=== PATIENT | male | born 1945 | race African-American/Black ===

== ENCOUNTER 2016-11-04 10:23 | Outpatient (CLI) | payer MEDICARE, MEDICAID ==
[~2016-11-04 10:23] MED LIST: ALBUTEROL2.5 MG/3 M INH; AMLODIPINE BESYL5 MG ORAL; ASPIRIN81 MG ORAL; DOCUSATE SODIU100 MG ORAL; ONE A DAY FOR MEN PO; PRAVASTATIN SOD20 M1 ORAL; PROAIR HFA8.5 GM INH; QVAR7.3 G2 IH; SPIRIVA18 MCG INH; VITAMIN D-32000 UNI2 PO
[2016-11-04 10:35] VITALS: BP 110/73
--- NOTE | 2016-11-04 11:09 | GI Initial Consult Note ---
Way,Saima Santana N.P. 11/04/16 1109: History of Present Illness General Date patient seen: Nov 04, 2016 Time patient seen: 11:01 Referring physician: BRYANNA Reason for Consultation: COLONOSCOPY SCREENING Present Illness HPI 71 year old male referred by Dr. Beltran for colonoscopy screening and constipation mgmt. Pt last colonoscopy greater than 5 years. History of Hep C. Denies any weight loss or change of dietary habits. No active s/sx of N/V/ D. The patient states he has a history of drug use. Home Meds Reported Medications Fluticasone Furoate (Arnuity Ellipta) 100 Mcg Blst.w.dev, IH DAILY 11/04/16 Alendronate Sodium* (FOSAMAX*) 70 Mg Tablet, 70 MG ORAL ONCE A WEEK, TAB 11/04/16 Tiotropium Gerlach* (SPIRIVA*) 18 Mcg Cap.w.dev, 1 PUFF INH DAILY, EA 10/02/15 Albuterol Sulfate* (PROAIR HFA*) 8.5 Gm Hfa.aer.ad, 1 PUFF INH EVERY AM, #8.5 GM 0 Refills 10/02/15 Albuterol Sulfate* (ALBUTEROL SULFATE HHN*) 2.5 Mg/3 Ml Vial.neb, 3 ML INH EVERY AM Y for Shortness of Breath, EA 10/02/15 [One A Day For Men] No Conflict Check, 1 TAB PO DAILY 10/02/15 Pravastatin Sod* (PRAVASTATIN SOD*) 20 Mg Tablet, 10 MG ORAL BEDTIME, TAB 10/02/15 Amlodipine Besylate* (AMLODIPINE BESYLATE*) 5 Mg Tablet, 5 MG ORAL DAILY, TAB 10/02/15 Cholecalciferol (Vitamin D3) (Vitamin D-3) 2,000 Unit Tablet, 1000 UNIT PO DAILY , TAB 10/02/15 Docusate Sodium* (DOCUSATE SODIUM*) 100 Mg Capsule, 200 MG ORAL DAILY, CAP 10/02/15 Aspirin* (ASPIRIN*) 81 Mg Tab.chew, 81 MG ORAL DAILY, TAB 10/02/15 Discontinued Reported Medications Beclomethasone Dipropionate (Qvar) 8.7 Gm Aer.w.adap, 80 MG IH BID, GM 10/02/15 Med list reviewed/reconciled: Yes Allergies: Coded Allergies: No Known Allergies (Verified , 05/11/11) Patient History History Provided By: Patient, Medical Record PMH Narrative Asthma Hepatitis C HTN Drug Use PSHx Right Cataract Family History Narrative N/A Social History: Denies: alcohol use, drug use, other, smoking Review of Systems All Other Systems: negative except mentioned in HPI Physical Exam Vital Signs Date Time Temp Pulse Resp B/P Pulse Ox O2 Delivery O2 Flow Rate FiO2 11/04/16 10:35 97.6 68 18 110/73 93 Sp02 EP Interpretation: reviewed General Appearance: well appearing, no apparent distress, alert Head: normocephalic EENT: PERRL/EOMI, normal ENT inspection, TMs normal Neck: normal inspection, full range of motion, supple Respiratory: normal inspection, chest non-tender, lungs clear, normal breath sounds Cardiovascular: normal rate Gastrointestinal: normal inspection, non tender, soft, normal bowel sounds Rectal: normal exam, normal rectal tone, deferred Genitourinary: normal inspection, no CVA tenderness, no vertebral tenderness Musculoskeletal: normal inspection, back normal Neurologic: normal inspection, alert, oriented x3, responsive Psychiatric: normal inspection, judgement/insight normal, memory normal Skin: normal inspection, normal color, no rash Lymphatic: normal inspection, no adenopathy GI: Plan Problems: (1) Constipation (2) Hepatitis C (3) HTN (hypertension) (4) History of drug use Plan Colonoscopy scheduled 11/17/16. - CLD + prep instructions given and acknowledged. Pt will consider Hep C tx after speaking to PCP, will draw labs day of procedure if patient agrees. Seen with Dr. Wilkerson. Thank you for referring this patient. AAKASH WILKERSON 11/05/16 0751: History of Present Illness Present Illness Home Meds Reported Medications Fluticasone Furoate (Arnuity Ellipta) 100 Mcg Blst.w.dev, IH DAILY 11/04/16 Alendronate Sodium* (FOSAMAX*) 70 Mg Tablet, 70 MG ORAL ONCE A WEEK, TAB 11/04/16 Tiotropium Gerlach* (SPIRIVA*) 18 Mcg Cap.w.dev, 1 PUFF INH DAILY, EA 10/02/15 Albuterol Sulfate* (PROAIR HFA*) 8.5 Gm Hfa.aer.ad, 1 PUFF INH EVERY AM, #8.5 GM 0 Refills 10/02/15 Albuterol Sulfate* (ALBUTEROL SULFATE HHN*) 2.5 Mg/3 Ml Vial.neb, 3 ML INH EVERY AM Y for Shortness of Breath, EA 10/02/15 [One A Day For Men] No Conflict Check, 1 TAB PO DAILY 10/02/15 Pravastatin Sod* (PRAVASTATIN SOD*) 20 Mg Tablet, 10 MG ORAL BEDTIME, TAB 10/02/15 Amlodipine Besylate* (AMLODIPINE BESYLATE*) 5 Mg Tablet, 5 MG ORAL DAILY, TAB 10/02/15 Cholecalciferol (Vitamin D3) (Vitamin D-3) 2,000 Unit Tablet, 1000 UNIT PO DAILY , TAB 10/02/15 Docusate Sodium* (DOCUSATE SODIUM*) 100 Mg Capsule, 200 MG ORAL DAILY, CAP 10/02/15 Aspirin* (ASPIRIN*) 81 Mg Tab.chew, 81 MG ORAL DAILY, TAB 10/02/15 Discontinued Reported Medications Beclomethasone Dipropionate (Qvar) 8.7 Gm Aer.w.adap, 80 MG IH BID, GM 10/02/15 Allergies: Coded Allergies: No Known Allergies (Verified , 05/11/11) GI: Plan Plan The patient was seen and examined at bedside and all new and available data was reviewed in the patients chart. I agree with the above findings, impression and plan. (Patient seen earlier today. Signature stamp does not reflect patient encounter time.). -Saima Fernández MD N.PJulio Nov 04, 2016 11:09 AAKASH WILKERSON Nov 05, 2016 07:51
[2016-11-04] MEDS ORDERED: ARNUITY ELLIP100 MCG IH (12:30)
[2016-11-04] MEDS ORDERED: FOSAMAX70 MG ORAL (12:30)
== END 2016-11-04 11:00 | disposition home or self-care (01) ==
LOC: PAN 10:23
DX: K59.00 Constipation, unspecified (principal); B19.20 Unspecified viral hepatitis C without hepatic coma; I10 Essential (primary) hypertension; Z79.82 Long term (current) use of aspirin
CPT/HCPCS: 99201

== ENCOUNTER 2016-11-17 08:25 | Day surgery (SDC) | payer MEDICARE, MEDICAID ==
[~2016-11-17] VITALS: Ht 188 cm; Wt 77.6 kg
[2016-11-17] VITALS (7 sets, daily range): BP systolic 101–125; BP diastolic 78–87
--- NOTE | 2016-11-17 06:13 | Anethesia Preoperative Eval ---
Anesthesia Pre-op PMH/ROS General Date of Evaluation: Nov 17, 2016 Time of Evaluation: 06:10 Anesthesiologist: lorena ASA Score: ASA 3 Mallampati Score Class I : Soft palate, uvula, fauces, pillars visible Class II: Soft palate, uvula, fauces visible Class III: Soft palate, base of uvula visible Class IV: Only hard plate visible Mallampati Classification: Class II Surgeon: marlen Diagnosis: constipation Surgical Procedure: colonoscopy Anesthesia History: none Social History: smoking - nonsmoker Family History: no anesthesia problems Allergies: Coded Allergies: No Known Allergies (Verified , 05/11/11) Medications: see eMAR Past Medical History Cardiovascular: Reports: HTN, other - hypercholesterolemia Pulmonary: Reports: asthma, other - mphysema Musculoskeletal/Integumentary: Reports: other - osteoporosis Anesthesia Pre-op Phys. Exam Physician Exam Constitutional: NAD Neurologic: CN 2-12 intact Cardiovascular: RRR Respiratory: CTA Gastrointestinal: S/NT/ND Airway Exam Mallampati Score: Class II MO: full Neck: supple TMD: 2fb ROM: full Teeth: missing Anesthesia Pre-op A/P Risk Assessment & Plan Assessment: asa3 Plan: mac Status Change Before Surgery: No Pre-Antibiotics Drug: ELOISA Garcia Nov 17, 2016 06:13
[~2016-11-17 08:25] MED LIST changes: +ARNUITY ELLIP100 MCG IH; +FOSAMAX70 MG ORAL
--- NOTE | 2016-11-17 10:22 | Short Stay Surgery H&P ---
History of Present Illness History of Present Illness Chief Complaint see recent consult note HPI Sushant Quigley is a 71 year old male who was admitted on for Constipation Patient History Allergies: Coded Allergies: No Known Allergies (Verified , 05/11/11) PAST MEDICAL HISTORY: Past Surgeries: Social History: Medication History Scheduled Albuterol Sulfate* (Proair Hfa*), 1 PUFF INH EVERY AM, (Reported) Alendronate Sodium* (Fosamax*), 70 MG ORAL ONCE A WEEK, (Reported) Amlodipine Besylate* (Amlodipine Besylate*), 5 MG ORAL DAILY, (Reported) Aspirin* (Aspirin*), 81 MG ORAL DAILY, (Reported) Cholecalciferol (Vitamin D3) (Vitamin D-3), 1,000 UNIT PO DAILY, (Reported) Docusate Sodium* (Docusate Sodium*), 200 MG ORAL DAILY, (Reported) Fluticasone Furoate (Arnuity Ellipta), Unknown Dose IH DAILY, (Reported) Pravastatin Sod* (Pravastatin Sod*), 10 MG ORAL BEDTIME, (Reported) Tiotropium Homer* (Spiriva*), 1 PUFF INH DAILY, (Reported) [One A Day For Men], 1 TAB PO DAILY, (Reported) Scheduled PRN Albuterol Sulfate* (Albuterol Sulfate Hhn*), 3 ML INH EVERY AM PRN for Shortness of Breath, (Reported) Physical Exam Vital Signs Last Vital Signs Date Time Temp Pulse Resp B/P Pulse Ox O2 Delivery O2 Flow Rate FiO2 11/17/16 09:11 97.8 79 18 125/81 97 Room Air Plan Attestation Are the patient's medical conditions optimized for surgery? AAKASH WILKERSON Nov 17, 2016 10:22
--- NOTE | 2016-11-17 10:22 | Pre-Procedure Note/Attestation ---
Pre-Procedure Note/Attestation Complete Prior to Procedure Planned Procedure: not applicable Procedure Narrative: colonoscopy Indications for Procedure Pre-Operative Diagnosis: screening colon, constipation Attestation I attest that I discussed the nature of the procedure; its benefits; risks and complications; and alternatives (and the risks and benefits of such alternatives ), prior to the procedure, with the patient (or the patient's legal medical billing representative). I attest that, if there was a reasonable possibility of needing a blood transfusion, the patient (or the patient's legal medical billing representative) was given the [facility] standardized written summary, pursuant to the [place] Blood Safety Act ([place] Health and Safety Code # 1645, as amended). I attest that I re-evaluated the patient just prior to the surgery and that there has been no change in the patient's H&P, except as documented below: AAKASH WILKERSON Nov 17, 2016 10:22
[2016-11-17] MEDS ORDERED: Propofol 10mg/ml 20ml IV ONE (12:30)
[2016-11-17] MEDS ORDERED: Lidocaine 1% MPF 10mg/ml 5ml ONE (12:30)
[2016-11-17] MEDS ORDERED: Hydromorphone 0.5mg/0.5ml inj IVP PRN (13:00)
[2016-11-17] MEDS ORDERED: Atropine Inj 1mg/10ml Syr IV PRN (13:00)
[2016-11-17] MEDS ORDERED: DiphenhydrAMINE 50mg/ml Inj IVP PRN (13:00)
[2016-11-17 13:11] LABS: BASOPHILS % (AUTO) 2.2 % (0.0-2.0); EOSINOPHILS % (AUTO) 3.8 % (0.0-3.0); LYMPHOCYTES % (AUTO) 43.9 % (20.0-45.0); MEAN CORPUSCULAR HGB CONC 31.5 G/DL (32.0-36.0); MEAN CORPUSCULAR VOLUME 95 FL (80-99); MEAN PLATELET VOLUME 9.4 FL (6.5-10.1); MONOCYTES % (AUTO) 11.1 % (1.0-10.0); PLATELET COUNT 186 K/UL (150-450); RED CELL DISTRIBUTION WIDTH 12.4 % (11.6-14.8); WHITE BLOOD COUNT 4.5 K/UL (4.8-10.8)
--- NOTE | 2016-11-17 13:14 | Immediate Post-Op Evaluation ---
Immediate Post-Op Evalulation Immediate Post-Op Evalulation Procedure: colonoscopy Date of Evaluation: Nov 17, 2016 Time of Evaluation: 13:32 IV Fluids: 0.9ns 150ml Blood Products: non Estimated Blood Loss: negligible Blood Pressure Systolic: 109 Blood Pressure Diastolic: 60 Pulse Rate: 80 Respiratory Rate: 18 O2 Sat by Pulse Oximetry: 100 Pain Score (1-10): 0 Nausea: No Vomiting: No Complications none Patient Status: awake, reacts, patent Hydration Status: adequate Drug: ELOISA Garcia Nov 17, 2016 13:14
[2016-11-17 13:26] LABS: ALANINE AMINOTRANSFERASE 47 U/L (3-41); ALBUMIN/GLOBULIN RATIO 0.8 (1.0-2.7); ANION GAP 12 (5-15); ASPARTATE AMINO TRANSFERASE 75 U/L (5-40); CALCIUM 9.8 mg/dL (8.6-10.2); CARBON DIOXIDE 28 mEQ/L (20-30); CHLORIDE 101 mEQ/L (98-107); HEMOLYSIS 6; POTASSIUM 4.2 mEQ/L (3.4-4.9); SODIUM 141 mEQ/L (135-145); TOTAL PROTEIN 8.2 g/dL (6.6-8.7)
[2016-11-17 13:55] LABS: BILIRUBIN,DIRECT 0.9 mg/dL (0.1-0.3)
--- NOTE | 2016-11-17 21:45 | Procedure Note ---
DATE OF PROCEDURE: 11/17/2016 SURGEON: Biju Ritter M.D. PROCEDURE: Colonoscopy with snare polypectomy. ANESTHESIOLOGIST: Marli Ivy M.D. INSTRUMENT: Olympus adult flexible colonoscope. INDICATION: Screening colonoscopy. REASON FOR PROCEDURE: The procedure, risks, benefits, and possible consequences, including hemorrhage, aspiration, perforation and infection, and alternative treatments, were explained to the patient/legal guardian by Dr. Biju Ritter and the patient/legal guardian understood and accepted these risks. DESCRIPTION OF PROCEDURE: After informed consent was obtained and the patient was adequately sedated, first rectal exam was normal. Then, the scope was advanced from the rectum into the cecum documented by appendiceal orifice, ileocecal valve, and right upper quadrant palpation. Quality of prep was good. The patient had one sessile polyp in the transverse colon measured roughly about 6 to 7 mm removed with snare polypectomy technique. The rest of the colonic examination was grossly within normal limit. Retroflexion of rectum showed evidence of few medium-sized nonbleeding internal hemorrhoids. SUMMARY FINDINGS: 1. One polyp removed, see above for details. 2. Internal hemorrhoids. RECOMMENDATIONS: 1. Followup biopsy results. 2. Recommend repeat colonoscopy in five years. Biju Ritter M.D. DR: RICKIE JOB#: [id number] CC:
[2016-11-19 05:55] VITALS: BP 120/78
--- NOTE | 2016-11-19 05:55 | 48 Hour Post Anesthesia Eval ---
Post Anesthesia Evaluation Procedure: colonoscopy Date of Evaluation: Nov 17, 2016 Time of Evaluation: 14:10 Blood Pressure Systolic: 120 0: 78 Pulse Rate: 65 Respiratory Rate: 17 Temperature (Fahrenheit): 97.5 O2 Sat by Pulse Oximetry: 94 Airway: patent Nausea: No Vomiting: No Pain Intensity: 0 Hydration Status: adequate Cardiopulmonary Status: stable Mental Status/LOC: patient returned to baseline Post-Anesthesia Complications: none Follow-up care needed: N/A ELOISA WILCOX Nov 19, 2016 05:55
== END 2016-11-17 14:45 | disposition home or self-care (01) ==
LOC: GAS 08:25
DX: Z12.11 Encounter for screening for malignant neoplasm of colon (principal); D12.3 Benign neoplasm of transverse colon; K64.8 Other hemorrhoids; K59.00 Constipation, unspecified; I10 Essential (primary) hypertension; E78.00 Pure hypercholesterolemia, unspecified; K21.9 Gastro-esophageal reflux disease without esophagitis; J45.909 Unspecified asthma, uncomplicated; J43.9 Emphysema, unspecified; M81.0 Age-related osteoporosis without current pathological fracture; Z79.82 Long term (current) use of aspirin
CPT/HCPCS: 36415; 36569; 45385; 76937; 80053; 82248; 85025; 87902; J2704; 94003; 94150

== ENCOUNTER 2016-11-27 13:59 | Outpatient (CLI) | payer MEDICARE, MEDICAID ==
--- NOTE | 2016-11-27 17:36 | GI Progress Note ---
Assessment/Plan Problems: (1) Hepatitis C ICD Codes: B19.20 - Unspecified viral hepatitis C without hepatic coma SNOMED: 38899358 (2) Constipation ICD Codes: K59.00 - Constipation, unspecified SNOMED: 23885452 (3) History of drug use ICD Codes: Z87.898 - Personal history of other specified conditions SNOMED: 738531900 (4) HTN (hypertension) ICD Codes: I10 - Essential (primary) hypertension SNOMED: 76652250 Status: stable Status Narrative Seen with Dr. Ritter. Assessment/Plan Hep C genotyp 1B Tx for Hep C RTC x 2 months Subjective Gastrointestinal/Abdominal: Reports: no symptoms Objective T 98 BP 112/81 P 88 92 RA General Appearance: no apparent distress, alert Cardiovascular: normal peripheral pulses, normal rate, regular rhythm Respiratory/Chest: chest wall non-tender, lungs clear, normal breath sounds, no respiratory distress Abdominal Exam: normal bowel sounds, non tender, soft Extremities: normal range of motion Saima Way N.P. Nov 27, 2016 17:36
== END 2016-11-27 14:45 | disposition home or self-care (01) ==
LOC: PAN 13:59
DX: B19.20 Unspecified viral hepatitis C without hepatic coma (principal); K59.00 Constipation, unspecified; Z87.898 Personal history of other specified conditions; I10 Essential (primary) hypertension
CPT/HCPCS: 99211

== ENCOUNTER 2017-01-14 13:24 | Outpatient (CLI) | payer MEDICARE, MEDICAID ==
[2017-01-14 13:52] VITALS: BP 111/79
--- NOTE | 2017-01-14 14:00 | GI Progress Note ---
Assessment/Plan Problems: (1) Hepatitis C ICD Codes: B19.20 - Unspecified viral hepatitis C without hepatic coma SNOMED: 51114653 Status: stable Status Narrative Seen with Dr. Ritter. Assessment/Plan Hep C genotyp 1B Tx for Hep C >> pt is in 1st month of Harvoni treatment fibroid scan reviewed with patient >> stage of F4 ordered abdominal U/S cont Hep C tx RTC x 3 months Subjective Subjective no GI complaints Objective Last 24 Hour Vital Signs Date Time Temp Pulse Resp B/P (MAP) Pulse Ox O2 Delivery O2 Flow Rate FiO2 01/14/17 13:52 98.1 89 18 111/79 General Appearance: no apparent distress, alert Cardiovascular: normal rate Respiratory/Chest: normal breath sounds, no respiratory distress Abdominal Exam: normal bowel sounds, non tender, soft Extremities: normal range of motion Saima Way N.P. Jan 14, 2017 14:00
[2017-01-14] MEDS ORDERED: HARVONI 90-4001 EACH PO (14:01)
== END 2017-01-14 14:00 | disposition home or self-care (01) ==
LOC: PAN 13:24
DX: B19.20 Unspecified viral hepatitis C without hepatic coma (principal)
CPT/HCPCS: 99211

== ENCOUNTER 2017-02-03 10:05 | Outpatient (CLI) | payer MEDICARE, MEDICAID ==
[~2017-02-03 10:05] MED LIST changes: +HARVONI 90-4001 EACH PO
--- NOTE | 2017-02-03 14:33 | Diagnostic Imaging Report ---
Indication:Patency Technique: Grayscale and duplex Doppler imaging of the abdomen performed. Comparison: None Findings: The liver demonstrates a coarsened echotexture and there is a suggestion of mild micro-nodularity involving the surface on high-resolution imaging. Findings suggest chronic liver disease. The demonstrated part of the pancreas, gallbladder, aorta and IVC, both kidneys, spleen appear unremarkable. There is no biliary ductal dilatation identified. Doppler evaluation of the main portal vein shows patency. There is no ascites. No hydronephrosis seen. Impression: Suspect chronic liver disease. No focal lesions identified.
== END 2017-02-03 12:05 | disposition home or self-care (01) ==
LOC: ULS 10:05
DX: B19.20 Unspecified viral hepatitis C without hepatic coma (principal)
CPT/HCPCS: 76700

== ENCOUNTER 2017-04-21 09:46 | Outpatient (CLI) | payer MEDICARE, MEDICAID ==
--- NOTE | 2017-04-21 15:49 | GI Progress Note ---
Assessment/Plan Problems: (1) Hepatitis C ICD Codes: B19.20 - Unspecified viral hepatitis C without hepatic coma SNOMED: 22876639 (2) History of drug use ICD Codes: Z87.898 - Personal history of other specified conditions SNOMED: 942563531 (3) Constipation ICD Codes: K59.00 - Constipation, unspecified SNOMED: 03505117 Status: progressing Status Narrative Seen with Dr. Ritter. Assessment/Plan Hep C genotype 1B s/p Tx for Hep C done 04/03/17 fibroid scan reviewed with patient >> stage of F4 RTC x 3 months for abdominal U/S and repeat Hep C quant draw repeat colonoscopy x 5 years The patient was seen and examined at bedside and all new and available data was reviewed in the patients chart. I agree with the above findings, impression and plan. (Patient seen earlier today. Signature stamp does not reflect patient encounter time.). - Guzman Ritter MD Subjective Subjective Denies any GI symptoms Hep C s/p tx done on 04-03-17. abdominal U/S not done Objective T 97.9 Bp 118/88 P 78 General Appearance: WD/WN, no apparent distress, alert Cardiovascular: normal rate Respiratory/Chest: normal breath sounds, no respiratory distress Abdominal Exam: normal bowel sounds, non tender, soft Extremities: normal range of motion, non-tender Saima Way N.P. Apr 21, 2017 15:49 AAKASH RITTER Apr 23, 2017 09:01
== END 2017-04-21 10:22 | disposition home or self-care (01) ==
LOC: PAN 09:46
DX: K59.00 Constipation, unspecified (principal); Z87.898 Personal history of other specified conditions; B19.20 Unspecified viral hepatitis C without hepatic coma
CPT/HCPCS: 99212

== ENCOUNTER 2017-05-27 10:05 | Outpatient (CLI) | payer MEDICARE, MEDICAID ==
--- NOTE | 2017-05-27 15:30 | Diagnostic Imaging Report ---
Indication: Abdominal pain, history of bladder calculus Technique: Spiral acquisitions obtained through the abdomen and pelvis. No oral contrast utilized, referring physician request No IV contrast utilized, per referring physician request.. Multiplanar reconstructions were generated. Total dose length product 621.35 mGycm. CTDIvol(s) 12.5 mGy. Dose reduction achieved using automated exposure control Comparison: None Findings: A calculus is seen dependent within the bladder lumen just to the right of midline. This measures 14 mm AP by 9 mm transverse. The bladder wall is not thickened, but is somewhat irregular with very slight stranding of the perivesical fat. The prostate is enlarged, measuring 5.5 cm transverse by 4 cm AP by 4.5 cm craniocaudad. A calculus in the upper pole of the left kidney measures 11 x 9 x 5 mm. No right renal calculi are demonstrated. Lack of IV contrast limits assessment of the renal parenchyma. No gross renal parenchymal mass or cyst demonstrated. No hydronephrosis, hydroureter, or ureteral calculi demonstrated. Lack of IV contrast limits assessment of the other solid organs. The liver demonstrates a micronodular contour. No focal abnormality. No definite ascites, varices, or splenomegaly. The gallbladder, bile ducts, pancreas, spleen, adrenals are unremarkable. No retroperitoneal or mesenteric mass or adenopathy. No pelvic mass or adenopathy. The appendix is normal. There is a moderate amount of retained fecal debris within the colon. No evidence of diverticulosis or diverticulitis. No small bowel distention. No free or loculated intraperitoneal air or fluid is evident. There are minimal degenerative changes of the lumbosacral spine. The lung bases demonstrate scarring. Confluent opacities in the right middle lobe and lingula may reflect areas of atelectasis, scarring, or consolidation. They also appear somewhat hyperinflated. Impression: 14 x 9 mm bladder calculus Slight irregularity of the bladder wall with stranding of the perivesical fat, could indicate cystitis. Correlate with clinical and laboratory findings 11 x 9 x 5 mm intrarenal calculus on the left Hepatic surface micronodularity, most likely indicating cirrhosis. Bilateral pulmonary opacities, could represent areas of scarring, atelectasis, or consolidation. There is also evidence of hyperinflation and scarring Minimal degenerative spondylosis changes The CT scanner at [facility] is accredited by the [employer] and the scans are performed using protocols designed to limit radiation exposure to as low as reasonably achievable to attain images of sufficient resolution adequate for diagnostic evaluation.
== END 2017-05-27 12:05 | disposition home or self-care (01) ==
LOC: CAT 10:05
DX: R10.9 Unspecified abdominal pain (principal); N21.0 Calculus in bladder; N20.0 Calculus of kidney; M47.9 Spondylosis, unspecified
CPT/HCPCS: 74176

== ENCOUNTER 2017-07-21 09:36 | Outpatient (CLI) | payer MEDICARE, MEDICAID ==
[2017-07-21 09:59] VITALS: BP 118/67
--- NOTE | 2017-07-21 12:48 | General Progress Note ---
Assessment/Plan Problem List: (1) Cirrhosis ICD Codes: K74.60 - Unspecified cirrhosis of liver SNOMED: 18057960 (2) Kidney calculi ICD Codes: N20.0 - Calculus of kidney SNOMED: 96787505 (3) Hepatitis C ICD Codes: B19.20 - Unspecified viral hepatitis C without hepatic coma SNOMED: 86398873 (4) Constipation ICD Codes: K59.00 - Constipation, unspecified SNOMED: 33886783 (5) HTN (hypertension) ICD Codes: I10 - Essential (primary) hypertension SNOMED: 53678612 (6) History of drug use ICD Codes: Z87.898 - Personal history of other specified conditions SNOMED: 333658842 Assessment/Plan plan EGd for EV labs on procedure day Subjective ROS Limited/Unobtainable: Yes Allergies: Coded Allergies: No Known Allergies (Verified , 05/11/11) Objective Last 24 Hour Vital Signs Date Time Temp Pulse Resp B/P (MAP) Pulse Ox O2 Delivery O2 Flow Rate FiO2 07/21/17 09:59 97.5 85 16 118/67 91 97.5 General Appearance: alert Neck: supple Cardiovascular: normal rate Respiratory/Chest: lungs clear Abdomen: normal bowel sounds, non tender, soft Extremities: non-tender AAKASH WILKERSON Jul 21, 2017 12:48
== END 2017-07-21 10:10 | disposition home or self-care (01) ==
LOC: PAN 09:36
DX: K74.60 Unspecified cirrhosis of liver (principal); N20.0 Calculus of kidney; B19.20 Unspecified viral hepatitis C without hepatic coma; K59.00 Constipation, unspecified; I10 Essential (primary) hypertension; Z87.898 Personal history of other specified conditions
CPT/HCPCS: 83013; 99212

== ENCOUNTER 2017-07-24 11:21 | Day surgery (SDC) | payer MEDICARE, MEDICAID ==
[2017-07-24] VITALS (7 sets, daily range): BP systolic 113–130; BP diastolic 71–84
[~2017-07-24] VITALS: Ht 188 cm; Wt 83.0 kg
[2017-07-24] MEDS ORDERED: Midazolam 2mg/2ml Inj ONE (11:22)
[2017-07-24] MEDS ORDERED: fentaNYL 100 mcg/2 mL IV ONE (11:22)
[2017-07-24] MEDS ORDERED: LR 1000ml ONE (11:22)
[2017-07-24] MEDS ORDERED: Propofol 200mg/20ml IV ONE (11:22)
[2017-07-24 12:36] LABS: BASOPHILS % (AUTO) 2.5 % (0.0-2.0); EOSINOPHILS % (AUTO) 1.7 % (0.0-3.0); HEMATOCRIT 48.7 % (42.0-52.0); HEMOGLOBIN 15.8 G/DL (14.2-18.0); LYMPHOCYTES % (AUTO) 37.9 % (20.0-45.0); MEAN CORPUSCULAR VOLUME 90 FL (80-99); NEUTROPHILS % (AUTO) 44.9 % (45.0-75.0); PLATELET COUNT 168 K/UL (150-450); RED BLOOD COUNT 5.44 M/UL (4.70-6.10); RED CELL DISTRIBUTION WIDTH 12.6 % (11.6-14.8); WHITE BLOOD COUNT 4.4 K/UL (4.8-10.8)
--- NOTE | 2017-07-24 12:36 | 48 Hour Post Anesthesia Eval ---
Post Anesthesia Evaluation Procedure: egd Date of Evaluation: Jul 26, 2017 Time of Evaluation: 12:35 Blood Pressure Systolic: 154 0: 78 Pulse Rate: 79 Respiratory Rate: 19 Temperature (Fahrenheit): 98 O2 Sat by Pulse Oximetry: 99 Airway: patent Nausea: No Vomiting: No Hydration Status: adequate Mental Status/LOC: patient returned to baseline Post-Anesthesia Complications: none Follow-up care needed: ready to discharge Bhavesh Sauer M.D. Jul 24, 2017 12:36
[2017-07-24 12:53] LABS: ALANINE AMINOTRANSFERASE 60 U/L (12-78); ALBUMIN 3.7 G/DL (3.4-5.0); ALBUMIN/GLOBULIN RATIO 0.8 (1.0-2.7); ALKALINE PHOSPHATASE 105 U/L (46-116); ANION GAP 9 mmol/L (5-15); ASPARTATE AMINO TRANSFERASE 46 U/L (15-37); BLOOD UREA NITROGEN 16 mg/dL (7-18); CALCIUM 9.1 MG/DL (8.5-10.1); CARBON DIOXIDE 26 MMOL/L (21-32); CHLORIDE 103 MMOL/L (98-107); POTASSIUM 3.8 MMOL/L (3.5-5.1); SODIUM 138 MMOL/L (136-145)
[2017-07-24 12:58] LABS: INR 1.1 (0.9-1.1)
--- NOTE | 2017-07-24 12:58 | Pre-Procedure Note/Attestation ---
Pre-Procedure Note/Attestation Complete Prior to Procedure Planned Procedure: not applicable Procedure Narrative: egd Indications for Procedure Pre-Operative Diagnosis: cirrhosis Attestation I attest that I discussed the nature of the procedure; its benefits; risks and complications; and alternatives (and the risks and benefits of such alternatives ), prior to the procedure, with the patient (or the patient's legal business center representative). I attest that, if there was a reasonable possibility of needing a blood transfusion, the patient (or the patient's legal business center representative) was given the [facility] Health Services standardized written summary, pursuant to the [place] Blood Safety Act ([place] Health and Safety Code # 1645, as amended). I attest that I re-evaluated the patient just prior to the surgery and that there has been no change in the patient's H&P, except as documented below: AAKASH WILKERSON Jul 24, 2017 12:58
--- NOTE | 2017-07-24 12:58 | Short Stay Surgery H&P ---
History of Present Illness History of Present Illness Chief Complaint cirrhosis see recent clinic consult note HPI Sushant Quigley is a 71 year old male who was admitted on for Cirrhosis Patient History Allergies: Coded Allergies: No Known Allergies (Verified , 05/11/11) Medication History Scheduled Albuterol Sulfate* (Proair Hfa*), 1 PUFF INH EVERY AM, (Reported) Amlodipine Besylate* (Amlodipine Besylate*), 5 MG ORAL DAILY, (Reported) Aspirin* (Aspirin*), 81 MG ORAL DAILY, (Reported) Docusate Sodium* (Docusate Sodium*), 200 MG ORAL DAILY, (Reported) Fluticasone Furoate (Arnuity Ellipta), Unknown Dose IH DAILY, (Reported) Pravastatin Sod* (Pravastatin Sod*), 10 MG ORAL BEDTIME, (Reported) Tiotropium [place]* (Spiriva*), 1 PUFF INH DAILY, (Reported) [One A Day For Men], 1 TAB PO DAILY, (Reported) Scheduled PRN Albuterol Sulfate* (Albuterol Sulfate Hhn*), 3 ML INH EVERY AM PRN for Shortness of Breath, (Reported) Discontinued Medications Alendronate Sodium* (Fosamax*), 70 MG ORAL ONCE A WEEK, (Reported) Discontinued Reason: MD discontinued med Cholecalciferol (Vitamin D3) (Vitamin D-3), 1,000 UNIT PO DAILY, (Reported) Discontinued Reason: MD discontinued med Ledipasvir/Sofosbuvir (Harvoni 90-400 mg Tablet), 1 EACH PO, (Reported) Discontinued Reason: Therapy completed Physical Exam Vital Signs Last Vital Signs Date Time Temp Pulse Resp B/P (MAP) Pulse Ox O2 Delivery O2 Flow Rate FiO2 07/24/17 12:36 208.4 79 19 99 07/24/17 11:53 130/84 Room Air Labs Laboratory Tests Test 07/24/17 12:20 White Blood Count 4.4 K/UL (4.8-10.8) L Red Blood Count 5.44 M/UL (4.70-6.10) Hemoglobin 15.8 G/DL (14.2-18.0) Hematocrit 48.7 % (42.0-52.0) Mean Corpuscular Volume 90 FL (80-99) Mean Corpuscular Hemoglobin 29.0 PG (27.0-31.0) Mean Corpuscular Hemoglobin Concent 32.4 G/DL (32.0-36.0) Red Cell Distribution Width 12.6 % (11.6-14.8) Platelet Count 168 K/UL (150-450) Mean Platelet Volume 9.4 FL (6.5-10.1) Neutrophils (%) (Auto) 44.9 % (45.0-75.0) L Lymphocytes (%) (Auto) 37.9 % (20.0-45.0) Monocytes (%) (Auto) 13.0 % (1.0-10.0) H Eosinophils (%) (Auto) 1.7 % (0.0-3.0) Basophils (%) (Auto) 2.5 % (0.0-2.0) H Prothrombin Time Pending Prothromb Time International Ratio Pending Activated Partial Thromboplast Time Pending Sodium Level 138 MMOL/L (136-145) Potassium Level 3.8 MMOL/L (3.5-5.1) Chloride Level 103 MMOL/L (98-107) Carbon Dioxide Level 26 MMOL/L (21-32) Anion Gap 9 mmol/L (5-15) Blood Urea Nitrogen 16 mg/dL (7-18) Creatinine 1.0 MG/DL (0.55-1.30) Estimat Glomerular Filtration Rate mL/min (>60) Glucose Level 109 MG/DL (74-106) H Calcium Level 9.1 MG/DL (8.5-10.1) Total Bilirubin 1.0 MG/DL (0.2-1.0) Aspartate Amino Transf (AST/SGOT) 46 U/L (15-37) H Alanine Aminotransferase (ALT/SGPT) 60 U/L (12-78) Alkaline Phosphatase 105 U/L (46-116) Total Protein 8.2 G/DL (6.4-8.2) Albumin 3.7 G/DL (3.4-5.0) Globulin 4.5 g/dL Albumin/Globulin Ratio 0.8 (1.0-2.7) L Alpha Fetoprotein Pending Hepatitis C Antibody Pending Hepatitis C RNA (PCR) IUs/ml Pending Hepatitis C RNA (PCR) log IUs/ml Pending Plan Attestation Are the patient's medical conditions optimized for surgery? AAKASH WILKERSON Jul 24, 2017 12:58
--- NOTE | 2017-07-24 13:19 | Endoscopy Procedure Note ---
Endoscopy Procedure Note General Indication for Procedure: cirrhosis Procedures Performed: EGD Operative Findings/Diagnosis: gastritis Specimen: yes Pt Tolerated Procedure Well: Yes Estimated Blood Loss: none Anesthesia Anesthesiologist: see chart Anesthesia: MAC Inserted Devices Implant(s) used?: No GI Core Measures 50 yrs or older w/o bx or poly: Not Applicable 10yrs. F/U not recommended: Not Applicable AAKASH WILKERSON Jul 24, 2017 13:19
--- NOTE | 2017-07-24 16:45 | Procedure Note ---
DATE OF PROCEDURE: 07/24/2017 SURGEON: Biju Ritter M.D. PROCEDURE: Upper endoscopy with biopsy. ANESTHESIA: Per Dr. Sauer. INSTRUMENT: Olympus adult flexible upper endoscope. INDICATIONS: 1. Cirrhosis. 2. Evaluation for esophageal varices. REASON FOR PROCEDURE: The procedure, risks, benefits, and possible consequences, including hemorrhage, aspiration, perforation and infection, and alternative treatments, were explained to the patient/legal guardian by Dr. Biju Ritter and the patient/legal guardian understood and accepted these risks. DESCRIPTION OF PROCEDURE: After informed consent was obtained and the patient was adequately sedated, Olympus upper endoscope was advanced from mouth into the second portion of the duodenum and retroflexion was performed in the stomach. The patient had evidence of a 3 cm hiatal hernia from 42 to 45 cm. No evidence of any esophagitis or esophageal mass. No esophageal varices. No gastric varices. In the stomach, there was diffuse gastritis. Random biopsy from antrum was obtained to rule out H. pylori infection. The patient tolerated the procedure very well without any complication. SUMMARY OF FINDINGS: 1. A 3 cm hiatal hernia. 2. Gastritis, status post biopsy. RECOMMENDATIONS: Follow up biopsies and treat accordingly. Biju Ritter M.D. DR: POOJA JOB#: [id number] CC:
== END 2017-07-24 14:45 | disposition home or self-care (01) ==
LOC: GAS 11:21
DX: K74.60 Unspecified cirrhosis of liver (principal); K29.50 Unspecified chronic gastritis without bleeding; K44.9 Diaphragmatic hernia without obstruction or gangrene; Z79.82 Long term (current) use of aspirin
CPT/HCPCS: 36415; 43239; 80053; 82105; 85025; 85610; 85730; 87522; 93005; J2250; J2704; J3010; J7120; 94003; 94150

== ENCOUNTER 2017-08-06 13:03 | Outpatient (CLI) | payer MEDICARE, MEDICAID ==
[2017-08-06 13:34] VITALS: BP 125/89
[2017-08-06] MEDS ORDERED: TAMSULOSIN HCL0.4 MG ORAL (13:38)
--- NOTE | 2017-08-06 14:52 | GI Progress Note ---
Assessment/Plan Problems: (1) Hepatitis C ICD Codes: B19.20 - Unspecified viral hepatitis C without hepatic coma SNOMED: 88254208 (2) Cirrhosis ICD Codes: K74.60 - Unspecified cirrhosis of liver SNOMED: 87615967 (3) Constipation ICD Codes: K59.00 - Constipation, unspecified SNOMED: 01105316 Status: stable Status Narrative Discussed with Dr. Ritter. Assessment/Plan SUMMARY OF FINDINGS reviewed with patient: 1. A 3 cm hiatal hernia. 2. Gastritis, status post biopsy. RECOMMENDATIONS: Follow up biopsies and treat accordingly. >> negative for H. Pylori Failed Harvoni >> will obtain prior auth for Vosevi going for kidney stone surgery RTC x 2 weeks for Vosevi Hep C treatment Subjective Gastrointestinal/Abdominal: Reports: no symptoms Objective Last 24 Hour Vital Signs Date Time Temp Pulse Resp B/P (MAP) Pulse Ox O2 Delivery O2 Flow Rate FiO2 08/06/17 13:34 97.6 76 16 125/89 94 97.6 General Appearance: WD/WN, no apparent distress, alert Cardiovascular: normal rate Respiratory/Chest: normal breath sounds, no respiratory distress Abdominal Exam: normal bowel sounds, non tender, soft Extremities: normal range of motion, non-tender Saima Way N.P. Aug 06, 2017 14:52
== END 2017-08-06 13:35 | disposition home or self-care (01) ==
LOC: PAN 13:03
DX: B19.20 Unspecified viral hepatitis C without hepatic coma (principal); K74.60 Unspecified cirrhosis of liver; K59.00 Constipation, unspecified; K29.70 Gastritis, unspecified, without bleeding; K44.9 Diaphragmatic hernia without obstruction or gangrene
CPT/HCPCS: 99212

== ENCOUNTER 2017-08-10 05:03 | Day surgery (SDC) | payer MEDICARE, MEDICAID ==
--- NOTE | 2017-06-30 22:00 | Consultation ---
DATE OF CONSULTATION: 07/27/2017 INTERNAL MEDICINE CONSULTATION CONSULTING PHYSICIAN: Berto Beltran M.D. REFERRING PHYSICIAN: Frederick Short M.D. DATE OF SURGERY: 08/10/2017 CHIEF COMPLAINT/REASON FOR HOSPITALIZATION: The patient is a 71-year-old male, admitted for cystoscopy and lithotripsy of bladder stone and possible prostate surgery. HISTORY OF PRESENT ILLNESS: The patient recently developed hematuria and was found by Dr. Short to have a bladder stone and is admitted now for surgery as above. He also has BPH and some decreased stream of urine. No fever or chills or urinary tract infection. He is also found to have an 8 mm stone in the left kidney, nonobstructing. The patient has been followed by myself for COPD and he stopped smoking several years ago, and his breathing has not markedly improved. There is no dyspnea on exertion at this time, only a mild cough, intermittent. He also has been treated for hepatitis C regimen. He has hypertension and hyperlipidemia. ALLERGIES: None known. MEDICATIONS: Amlodipine 5 mg daily, aspirin 81 mg daily, on hold for surgery; DSS 200 mg daily; pravastatin 10 mg daily; Spiriva one inhalation daily; ProAir two puffs q.4 h. as needed; Arnuity inhaler; hand-held nebulizer of albuterol as needed; and tamsulosin 0.4 mg at bedtime. PAST SURGICAL HISTORY: Prior surgery, cataract in the right eye. HABITS: He is a former smoker, having been quit few years ago. Alcohol, moderate in the past. He is a former heroin user and quit many years ago. SYSTEM REVIEW: HEAD, EYES, EARS, NOSE, AND THROAT: History of cataract surgery with stable vision. No glaucoma. Hearing is good. ENDOCRINE: No diabetes or thyroid disease. PULMONARY: History of emphysema and COPD with marked improvement for the last few years. CARDIAC: No angina, CO, or palpitations. There is a history of hypertension. GASTROINTESTINAL: No GI bleeding or abdominal pain. GENITOURINARY: See history of present illness. MUSCULOSKELETAL: No severe arthritis. PHYSICAL EXAMINATION: VITAL SIGNS: When seen in my office on 06/30/2017, weight 184, pulse 90, blood pressure 140/91, and temperature 97.6. HEAD, EYES, EARS, NOSE, AND THROAT: Sclerae are nonicteric. Ocular motions intact in all directions. Oral mucosa moist. NECK: No adenopathy or thyroid enlargement. LUNGS: Clear. Somewhat decreased breath sounds. HEART: Rhythm is regular. No murmur. ABDOMEN: Soft. No organomegaly or masses. GENITOURINARY: Deferred to Urology. RECTAL: Deferred to Urology. EXTREMITIES: No edema, cyanosis, or clubbing. No deformity of joints. NEUROLOGIC: He is alert and oriented. Cranial nerves are intact. No focal weakness. IMPRESSION: 1. Bladder stone and benign prostatic hyperplasia, for surgery. 2. Chronic obstructive pulmonary disease. 3. Hypertension. 4. History of treated hepatitis C. PLAN: The patient is stable for the above surgeries. Preoperative labs labs reviewed and Dr. Short. Berto Beltran M.D. DR: ABHAY JOB#: [id number] CC: SHARI
[2017-07-01 12:04] LABS: BASOPHILS % (AUTO) 1.8 % (0.0-2.0); EOSINOPHILS % (AUTO) 3.7 % (0.0-3.0); HEMATOCRIT 48.3 % (42.0-52.0); HEMOGLOBIN 15.9 G/DL (14.2-18.0); LYMPHOCYTES % (AUTO) 36.6 % (20.0-45.0); MEAN CORPUSCULAR VOLUME 91 FL (80-99); MONOCYTES % (AUTO) 16.9 % (1.0-10.0); PLATELET COUNT 173 K/UL (150-450); RED BLOOD COUNT 5.33 M/UL (4.70-6.10); RED CELL DISTRIBUTION WIDTH 12.4 % (11.6-14.8); WHITE BLOOD COUNT 3.6 K/UL (4.8-10.8)
--- NOTE | 2017-07-01 12:09 | Diagnostic Imaging Report ---
Indication: Cough Technique: 2 views of the chest Comparison: 05/11/2011 Findings: The lungs are hyperinflated. There is partial atelectasis of the right middle lobe, more evident on the lateral in the PA view. There may be some infiltrate as well. The remainder of the lungs and pleural spaces are clear. There is central bronchial wall thickening. The heart size is normal. The aorta is tortuous Impression: Partial atelectasis and possibly some consolidation of the right middle lobe, best appreciated on the lateral view. COPD changes
[2017-07-01 12:14] LABS: INR 1.1 (0.9-1.1)
--- NOTE | 2017-07-03 17:35 | Cardiology Report ---
APPROVED REPORT EKG Measurement Heart [id number] Sinus rhythm with occasional premature ventricular complexes Septal infarct, age undetermined Abnormal ECG
[2017-08-05 11:29] LABS: BASOPHILS % (AUTO) 1.8 % (0.0-2.0); EOSINOPHILS % (AUTO) 2.2 % (0.0-3.0); HEMATOCRIT 48.9 % (42.0-52.0); HEMOGLOBIN 16.5 G/DL (14.2-18.0); LYMPHOCYTES % (AUTO) 34.7 % (20.0-45.0); MEAN CORPUSCULAR VOLUME 91 FL (80-99); MONOCYTES % (AUTO) 13.5 % (1.0-10.0); NEUTROPHILS % (AUTO) 47.9 % (45.0-75.0); PLATELET COUNT 154 K/UL (150-450); RED CELL DISTRIBUTION WIDTH 12.4 % (11.6-14.8); WHITE BLOOD COUNT 3.5 K/UL (4.8-10.8)
[2017-08-05 11:39] LABS: ANION GAP 9 mmol/L (5-15); BLOOD UREA NITROGEN 17 mg/dL (7-18); CALCIUM 9.3 MG/DL (8.5-10.1); CARBON DIOXIDE 26 MMOL/L (21-32); CHLORIDE 105 MMOL/L (98-107); CREATININE 1.3 MG/DL (0.55-1.30); POTASSIUM 3.8 MMOL/L (3.5-5.1); SODIUM 140 MMOL/L (136-145)
[2017-08-05 11:41] LABS: INR 1.1 (0.9-1.1)
--- NOTE | 2017-08-09 12:03 | Nephrology Progress Note ---
Assessment/Plan Plan clearedd for surgery on 08/10/17 STELLA GOULD Aug 09, 2017 12:03
[~2017-08-10] VITALS: Ht 188 cm; Wt 84.8 kg
[2017-08-10] VITALS (16 sets, daily range): BP systolic 99–141; BP diastolic 69–92
[~2017-08-10 05:03] MED LIST changes: +Cefepime HCl 1 GM in NS 55 ML IVPB ONE; +TAMSULOSIN HCL0.4 MG ORAL
[2017-08-10] MEDS ORDERED: Iothalamate Meglumine 60% 30ML INJ ONE (06:38)
[2017-08-10] MEDS ORDERED: Propofol 200mg/20ml IV ONE (06:40)
[2017-08-10] MEDS ORDERED: Midazolam 2mg/2ml Inj ONE ×2 (06:40→09:33)
[2017-08-10] MEDS ORDERED: cefOXitin 2gm Inj ONE (06:40)
[2017-08-10] MEDS ORDERED: Lidocaine 1% MPF 10mg/ml 5ml ONE (06:40)
[2017-08-10] MEDS ORDERED: fentaNYL 100 mcg/2 mL IV ONE (06:40)
[2017-08-10] MEDS ORDERED: Succinylcholine 20mg/ml 10ml vial ONE (06:59)
[2017-08-10] MEDS ORDERED: Zemuron 50mg/5ml Inj IV ONE (06:59)
[2017-08-10] MEDS ORDERED: Cefepime HCl 1 GM in D5W 55 ML IVPB ONE (07:00)
--- NOTE | 2017-08-10 07:20 | Urology Progress Note ---
Assessment/Plan Assessment/Plan BPH hx bladder and renal calc hematuria hx proceed with surg today d/w pt fully risks, etc Subjective Allergies: Coded Allergies: No Known Allergies (Verified , 05/11/11) Subjective for surg today Objective Last 24 Hour Vital Signs Date Time Temp Pulse Resp B/P (MAP) Pulse Ox O2 Delivery O2 Flow Rate FiO2 08/10/17 05:31 97.1 90 18 123/80 95 Room Air 97.1 Height (Feet): 6 Height (Inches): 2.00 Weight (Pounds): 187 Objective exam stable, pre op labs noted ESTEE COLEMAN Aug 10, 2017 07:20
--- NOTE | 2017-08-10 07:21 | Pre-Procedure Note/Attestation ---
Pre-Procedure Note/Attestation Complete Prior to Procedure Planned Procedure: left Procedure Narrative: cysto, laser cystolitholapaxy, left ureteral stent and ESWL Indications for Procedure Pre-Operative Diagnosis: bladder calculus, left renal calculus Attestation I attest that I discussed the nature of the procedure; its benefits; risks and complications; and alternatives (and the risks and benefits of such alternatives ), prior to the procedure, with the patient (or the patient's legal petroleum products sales representative). I attest that, if there was a reasonable possibility of needing a blood transfusion, the patient (or the patient's legal petroleum products sales representative) was given the [facility] standardized written summary, pursuant to the [place] Blood Safety Act ([place] Health and Safety Code # 1645, as amended). I attest that I re-evaluated the patient just prior to the surgery and that there has been no change in the patient's H&P, except as documented below: ESTEE COLEMAN Aug 10, 2017 07:21
[2017-08-10] MEDS ORDERED: LR 1000ml 1,000 ML IVLG SCH (08:11)
--- NOTE | 2017-08-10 08:11 | Anethesia Preoperative Eval ---
Anesthesia Pre-op PMH/ROS General Date of Evaluation: Aug 10, 2017 Time of Evaluation: 07:10 Anesthesiologist: Jose Guadalupe ASA Score: ASA 3 Mallampati Score Class I : Soft palate, uvula, fauces, pillars visible Class II: Soft palate, uvula, fauces visible Class III: Soft palate, base of uvula visible Class IV: Only hard plate visible Mallampati Classification: Class II Surgeon: Deja Diagnosis: Kidney and bladder stones BPH Surgical Procedure: ESWL Cysto prostate ewaporation Anesthesia History: none Social History: smoking - h/o heavy, drug use - h/o IVDA Allergies: Coded Allergies: No Known Allergies (Verified , 05/11/11) Medications: see eMAR Past Medical History Cardiovascular: Reports: HTN; Denies: CAD, [place], valve dz, arrhythmia, other Pulmonary: Reports: COPD - milld dyspnea; Denies: asthma, PHUC, other Gastrointestinal/Genitourinary: Reports: GERD; Denies: CRI, ESRD, other Neurologic/Psychiatric: Denies: dementia, CVA, depression/anxiety, TIA, other Endocrine: Denies: DM, hypothyroidism, steroids, other HEENT: Denies: cataract (L), cataract (R), glaucoma, LITTLE TRAVERSE (L), LITTLE TRAVERSE (R), other Hematology/Immune: Denies: anemia, DVT, bleeding disorder, other Musculoskeletal/Integumentary: Denies: OA, RA, DJD, DDD, edema, other PMH Narrative: macrohematuria PSxH Narrative: None Anesthesia Pre-op Phys. Exam Physician Exam Last Vital Signs Date Time Temp Pulse Resp B/P (MAP) Pulse Ox O2 Delivery O2 Flow Rate FiO2 08/10/17 05:31 97.1 90 18 123/80 95 Room Air 97.1 Constitutional: NAD Neurologic: CN 2-12 intact Cardiovascular: RRR Respiratory: other Gastrointestinal: S/NT/ND Airway Exam Mallampati Score: Class II MO: full Neck: stiff ROM: limited Teeth: missing Dentures: no upper, no lower Anesthesia Pre-op A/P Labs see chart Studies Pre-op Studies: EKG - sinus arrhytmia Risk Assessment & Plan Assessment: ASA 3 Plan: GA with LMA Status Change Before Surgery: No Pre-Antibiotics Drug: Cefoxitin 2 gr. Given Within 1 Hr of Incision: Yes Time Given: 07:50 LI PEREZ M.D. Aug 10, 2017 08:11
[2017-08-10] MEDS ORDERED: DiphenhydrAMINE 50mg/ml Inj IVP PRN (08:15)
[2017-08-10] MEDS ORDERED: Hydromorphone 0.5mg/0.5ml inj IVP PRN (08:15)
[2017-08-10] MEDS ORDERED: Ketorolac 30mg Inj IV PRN (08:15)
--- NOTE | 2017-08-10 09:12 | Brief Operative Note ---
Immediate Post Operative Note Operative Note Pre-op Diagnosis: bladder calculus, left renal calculus, BPH Procedure: cysto, laser vap prostate, cystolithalopaxy, left ureteral stent, ESWL Post-op Diagnosis: same as pre-op Surgeon: kapil Anesthesiologist: vasyl Anesthesia: general Specimen: yes - bladder calc Complications: none Condition: stable Fluids: NS Estimated Blood Loss: minimal Implant(s) used?: Yes - 6f x 28 cm left ureteral stent ESTEE COLEMAN Aug 10, 2017 09:12
[2017-08-10] MEDS ORDERED: Albuterol ud Inhalation ONE (09:36)
[2017-08-10] MEDS ORDERED: Albuterol ud Inhalation HHN ONE (09:45)
[2017-08-10] MEDS ORDERED: Midazolam 2mg/2ml Inj IVP ONE ×2 (09:45→09:47)
--- NOTE | 2017-08-10 09:47 | Immediate Post-Op Evaluation ---
Immediate Post-Op Evalulation Immediate Post-Op Evalulation Procedure: Cysto Lithotrypsy, stent placement Date of Evaluation: Aug 10, 2017 Time of Evaluation: 09:46 IV Fluids: 1000 Blood Products: none Estimated Blood Loss: 50 Urinary Output: n/a Blood Pressure Systolic: 118 Blood Pressure Diastolic: 78 Pulse Rate: 86 Respiratory Rate: 20 O2 Sat by Pulse Oximetry: 98 Temperature (Fahrenheit): 97.6 Pain Score (1-10): 2 Nausea: No Vomiting: No Complications none Patient Status: reacts, patent, none Hydration Status: adequate LI PEREZ M.D. Aug 10, 2017 09:47
--- NOTE | 2017-08-10 10:38 | 48 Hour Post Anesthesia Eval ---
Post Anesthesia Evaluation Procedure: Cysto Lithotrypsy, stent placement Date of Evaluation: Aug 10, 2017 Time of Evaluation: 10:37 Blood Pressure Systolic: 113 0: 68 Pulse Rate: 74 Respiratory Rate: 22 Temperature (Fahrenheit): 97.6 O2 Sat by Pulse Oximetry: 98 Airway: patent Nausea: No Vomiting: No Pain Intensity: 2 Hydration Status: adequate Cardiopulmonary Status: stable Mental Status/LOC: patient returned to baseline Follow-up Care/Observations: n/a Post-Anesthesia Complications: none Follow-up care needed: ready to discharge LI PEREZ M.D. Aug 10, 2017 10:38
--- NOTE | 2017-08-11 11:00 | Operative Note - Dictated ---
DATE OF OPERATION: 08/10/2017 PREOPERATIVE DIAGNOSES: 1. Bladder calculus. 2. Benign prostatic hypertrophy. 3. Left renal calculus. POSTOPERATIVE DIAGNOSES: 1. Bladder calculus. 2. Benign prostatic hypertrophy. 3. Left renal calculus. PROCEDURE PERFORMED: Cystoscopy with laser cystolitholapaxy and vaporization of prostate tissue, placement of left ureteral stent and left shockwave lithotripsy. OPERATING SURGEON: Frederick Short M.D. ANESTHESIOLOGIST: Braulio Shi M.D. ANESTHESIA: General. INDICATIONS FOR PROCEDURE: This is a 71-year-old -[place] gentleman with a history of BPH, hematuria. Cystoscopy was noted to have a bladder calculus, which was about roughly 2 cm or so. He also had a 11 mm stone of the left kidney, which is nonobstructive. He also has BPH and is on Flomax. Various management options discussed with the patient. He wanted to proceed with the above. Possible risks and complications of bleeding, infection, anesthesia, damage to the urethra and bladder were discussed. No guarantees were given or implied. FINDINGS: The patient had a stone in the bladder which was cleared. The stone in the kidney was also treated with shockwave lithotripsy. PROCEDURE IN DETAIL: Informed consent was obtained from the patient. The patient was brought to the operating room and then placed in supine position. Successful general anesthesia was induced. The patient was then placed in a modified dorsal lithotomy position and genital area was then prepped and draped in usual sterile fashion. Preoperative IV antibiotics were administered. Time-out was performed. At this time, the distal urethral meatus was gently dilated. Cystoscopy was then performed. The urethra was without strictures. His fossa navicularis was slightly tight. Prostate was moderately obstructing with prominent median lobe. He had friable vessels. Bladder was inspected was slightly trabeculated. There was a stone which was centimeters. There were no other bladder tumors. At this point, using the 550 micron holmium laser fiber, the bladder stone was sequentially broken into small pieces and all pieces were evacuated. The bladder was stone free. Care was taken not to injure the bladder wall. Due to the patient had mild oozing from the median lobe of the prostate, some of the tissue and vessels were then vaporized with the laser for hemostasis. At this point, the left ureteral orifice was identified and wire was then passed up. A 6-[place] x 28 cm double-J stent was passed over the wire into the kidney which seemed in good position. The stone was visualized on fluoroscopy and using the Dornier SKURA machine, the stone was focused over the focal point of the shockwave generator. A 2500 shock waves were delivered to the stone. The stone was intermittently visualized and excellent fragmentation of the stone was noted. At the end of the procedure, the stone was faintly visible. It should be noted that there was a Rizzo catheter placed during the shockwave lithotripsy and at the middle of the shock wave, the patient did receive some Lasix to flush out some of the stone fragments. The patient was awakened and was taken recovery room in stable condition. Blood loss was minimal. No complications. Frederick Short M.D. DR: NUBIA JOB#: [id number] CC: Berto Beltran M.D.; Fax#: [phone] AAKASH WILKERSON M.D. ; FAX#: [phone]
== END 2017-08-10 16:15 | disposition home or self-care (01) ==
LOC: SUR 05:03
DX: N21.0 Calculus in bladder (principal); N40.0 Benign prostatic hyperplasia without lower urinary tract symptoms; N20.0 Calculus of kidney; J44.9 Chronic obstructive pulmonary disease, unspecified; Z87.891 Personal history of nicotine dependence; Z79.82 Long term (current) use of aspirin; I10 Essential (primary) hypertension; E78.5 Hyperlipidemia, unspecified; Z86.19 Personal history of other infectious and parasitic diseases; K21.9 Gastro-esophageal reflux disease without esophagitis; I49.9 Cardiac arrhythmia, unspecified
CPT/HCPCS: 36415; 50590; 52317; 52332; 71046; 80048; 85025; 85610; 85730; 93005; J0694; J1940; J2250; J2704; J3010; Q9961

== ENCOUNTER 2017-09-04 10:21 | Outpatient (CLI) | payer MEDICARE, MEDICAID ==
[~2017-09-04 10:21] MED LIST changes: -Cefepime HCl 1 GM in NS 55 ML IVPB ONE
== END 2017-09-04 12:21 | disposition home or self-care (01) ==
LOC: LAB 10:21
DX: B19.20 Unspecified viral hepatitis C without hepatic coma (principal)
CPT/HCPCS: 86704; 87340

== ENCOUNTER 2017-12-03 13:41 | Outpatient (CLI) | payer MEDICARE, MEDICAID ==
[2017-12-03 14:10] VITALS: BP 130/94
--- NOTE | 2017-12-03 14:12 | GI Progress Note ---
Assessment/Plan Problems: (1) Hepatitis C ICD Codes: B19.20 - Unspecified viral hepatitis C without hepatic coma SNOMED: 21198459 (2) Cirrhosis ICD Codes: K74.60 - Unspecified cirrhosis of liver SNOMED: 65323889 (3) History of drug use ICD Codes: Z87.898 - Personal history of other specified conditions SNOMED: 149671342 (4) Constipation ICD Codes: K59.00 - Constipation, unspecified SNOMED: 36447500 Status: stable Status Narrative Seen with Dr. Ritter. Assessment/Plan s/p failed Hep C treatment, now finished 2nd course of treatment with Mavyret 100/40 x 12 weeks. obtain routine abdominal U/S RTC x 3 months for repeat Hep C quant test. Subjective Gastrointestinal/Abdominal: Reports: no symptoms Objective T 98.0 BP 130/94 P 90 95 RA WT 177 General Appearance: WD/WN, no apparent distress, alert Cardiovascular: normal rate Respiratory/Chest: normal breath sounds, no respiratory distress Abdominal Exam: normal bowel sounds, non tender, soft Extremities: normal range of motion, non-tender Eleonora Way BINDER LOCKSTITCH Dec 03, 2017 14:12
== END 2017-12-03 14:11 | disposition home or self-care (01) ==
LOC: PAN 13:41
DX: K74.60 Unspecified cirrhosis of liver (principal); Z87.898 Personal history of other specified conditions; K59.00 Constipation, unspecified; B19.20 Unspecified viral hepatitis C without hepatic coma
CPT/HCPCS: 99212

== ENCOUNTER 2017-12-17 09:21 | Outpatient (CLI) | payer MEDICARE, MEDICAID ==
--- NOTE | 2017-12-17 11:42 | Diagnostic Imaging Report ---
Indication: Abdominal pain Technique: Zimmer-scale and duplex images of the upper abdomen were obtained Comparison: 01/24/2017 Findings: Gallbladder is unremarkable, without stones, wall thickening, nor pericholecystic fluid. Sonographic [place]'s sign is negative. Common bile duct measures 4 mm in diameter. No intrahepatic biliary ductal dilatation. Liver demonstrates coarsened echogenicity and surface micronodular nodularity. This has been reported previously. No focal abnormality. Portal vein and hepatic veins are patent. Pancreas is unremarkable. Spleen is unremarkable. Left kidney measures 11.5 cm in length. Right kidney measures 11.4 cm length. Both kidneys demonstrate normal echogenicity. There is no hydronephrosis. There is a calculus within the left renal collecting system, also demonstrated on prior CT scan of 05/27/2017 . Abdominal aorta is partially obscured by bowel gas, visualized portions are non-aneurysmal . Impression: Coarsened hepatic echogenicity and surface micronodular nodularity, consistent with cirrhotic change, also previously reported Negative for gallstones or dilated ducts Nonobstructive left renal calculus, also previously reported Note suboptimal visualization of the distal abdominal aorta
== END 2017-12-17 11:21 | disposition home or self-care (01) ==
LOC: ULS 09:21
DX: B19.20 Unspecified viral hepatitis C without hepatic coma (principal); K74.60 Unspecified cirrhosis of liver; Z87.898 Personal history of other specified conditions; K59.00 Constipation, unspecified
CPT/HCPCS: 76700

== ENCOUNTER 2018-03-16 10:50 | Outpatient (CLI) | payer MEDICARE, MEDICAID | END 2018-03-16 12:50 | disposition home or self-care (01) | LOC: LAB 10:50 | DX: B19.20 Unspecified viral hepatitis C without hepatic coma (principal) | CPT/HCPCS: 87522 ==

== ENCOUNTER → 2018-08-05 | Outpatient (CLI) | payer MEDICARE, MEDICAID ==
--- NOTE | 2018-08-05 14:54 | Diagnostic Imaging Report ---
Indication: Abdominal pain Technique: Multiplanar grayscale and duplex Doppler images of the abdomen obtained Comparison: The 3018 Findings: Nodular liver surface. More focal macronodular contour of the left hepatic lobe is noted which may be related to subtle mass or cirrhotic changes. Within the right hepatic lobe there is a avascular lesion that measures 1.8 x 2.1 cm with echogenicity slightly more than expected in a cyst. Additionally there is a subcentimeter hyperechoic focus adjacent to this lesion. Given the above findings, further evaluation is recommended with either contrast-enhanced liver protocol CT or MRI. The main portal vein appears patent. No gallstones identified. Gallbladder wall is not thickened. There is no pericholecystic fluid. No biliary ductal dilatation. Common bile duct is normal in caliber. Imaged portions of the pancreas grossly unremarkable. Kidneys are symmetric in size and demonstrate normal echogenicity bilaterally. There is no evidence of hydronephrosis bilaterally. A punctate echogenic focus is noted in the left kidney which may represent a nonobstructing stone. Spleen is normal in size measuring 8 cm in length. Imaged portions of the aorta are normal in caliber. Note that the mid and distal portions are obscured by bowel gas. No ascites is demonstrated. IMPRESSION: Nodular contour of the liver compatible with cirrhosis. 2.1 cm hypoechoic lesion in the right lobe of the liver. Additional either focal lobulation versus mass lesion in the left lobe of the liver. Given findings and underlying cirrhosis recommend further evaluation with dynamic contrast-enhanced liver protocol MRI or CT for more further evaluation. Spleen normal in size. Nonobstructing left renal stone.
== END | disposition home or self-care (01) ==
LOC: ULS 09:19
DX: R10.9 Unspecified abdominal pain (principal); N20.0 Calculus of kidney; K76.9 Liver disease, unspecified
CPT/HCPCS: 76700

== ENCOUNTER 2018-08-26 13:40 | Outpatient (CLI) | payer MEDICARE, MEDICAID ==
--- NOTE | 2018-08-26 13:58 | General Progress Note ---
Assessment/Plan Problem List: (1) Liver lesion ICD Codes: K76.9 - Liver disease, unspecified SNOMED: 767567983 (2) History of drug use ICD Codes: Z87.898 - Personal history of other specified conditions SNOMED: 014367042 (3) Hepatitis C ICD Codes: B19.20 - Unspecified viral hepatitis C without hepatic coma SNOMED: 95375770 (4) HTN (hypertension) ICD Codes: I10 - Essential (primary) hypertension SNOMED: 36885962 (5) Kidney calculi ICD Codes: N20.0 - Calculus of kidney SNOMED: 66972912 (6) Cirrhosis ICD Codes: K74.60 - Unspecified cirrhosis of liver SNOMED: 26361777 (7) Constipation ICD Codes: K59.00 - Constipation, unspecified SNOMED: 52916384 (8) COPD (chronic obstructive pulmonary disease) ICD Codes: J44.9 - Chronic obstructive pulmonary disease, unspecified SNOMED: 52845510 Assessment/Plan: plan CT 3 phase liver protocol Subjective ROS Limited/Unobtainable: Yes Allergies: Coded Allergies: No Known Allergies (Verified , 07/16/18) Objective Procedure: US ABD Complete Indication: Abdominal pain Technique: Multiplanar grayscale and duplex Doppler images of the abdomen obtained Comparison: The 3018 Findings: Nodular liver surface. More focal macronodular contour of the left hepatic lobe is noted which may be related to subtle mass or cirrhotic changes. Within the right hepatic lobe there is a avascular lesion that measures 1.8 x 2.1 cm with echogenicity slightly more than expected in a cyst. Additionally there is a subcentimeter hyperechoic focus adjacent to this lesion. Given the above findings, further evaluation is recommended with either contrast-enhanced liver protocol CT or MRI. The main portal vein appears patent. No gallstones identified. Gallbladder wall is not thickened. There is no pericholecystic fluid. No biliary ductal dilatation. Common bile duct is normal in caliber. Imaged portions of the pancreas grossly unremarkable. Kidneys are symmetric in size and demonstrate normal echogenicity bilaterally. There is no evidence of hydronephrosis bilaterally. A punctate echogenic focus is noted in the left kidney which may represent a nonobstructing stone. Spleen is normal in size measuring 8 cm in length. Imaged portions of the aorta are normal in caliber. Note that the mid and distal portions are obscured by bowel gas. No ascites is demonstrated. IMPRESSION: Nodular contour of the liver compatible with cirrhosis. 2.1 cm hypoechoic lesion in the right lobe of the liver. Additional either focal lobulation versus mass lesion in the left lobe of the liver. Given findings and underlying cirrhosis recommend further evaluation with dynamic contrast-enhanced liver protocol MRI or CT for more further evaluation. Spleen normal in size. Nonobstructing left renal stone. Dictated By: Alejandro Cerrato M.D. Electronically Signed By: Alejandro Cerrato M.D. Signed Date/Time 08/05/18 1449 CC: Biju Ritter MD General Appearance: alert EENT: normal ENT inspection Neck: supple Cardiovascular: normal rate Respiratory/Chest: decreased breath sounds Abdomen: normal bowel sounds, non tender, soft Extremities: non-tender Biju Ritter MD August 26, 2018 13:58
[2018-08-26 15:07] VITALS: BP 133/85
== END 2018-08-26 15:51 | disposition home or self-care (01) ==
LOC: PAN 13:40
DX: K76.9 Liver disease, unspecified (principal); Z87.898 Personal history of other specified conditions; B19.20 Unspecified viral hepatitis C without hepatic coma; I10 Essential (primary) hypertension; N20.0 Calculus of kidney; K74.60 Unspecified cirrhosis of liver; K59.00 Constipation, unspecified; J44.9 Chronic obstructive pulmonary disease, unspecified

== ENCOUNTER 2018-08-26 14:23 | Outpatient (CLI) | payer MEDICARE, MEDICAID ==
[2018-08-26 14:42] LABS: BASOPHILS % (AUTO) 0.9 % (0.0-2.0); EOSINOPHILS % (AUTO) 3.7 % (0.0-3.0); HEMATOCRIT 47.6 % (42.0-52.0); HEMOGLOBIN 15.3 G/DL (14.2-18.0); LYMPHOCYTES % (AUTO) 29.3 % (20.0-45.0); MEAN CORPUSCULAR VOLUME 89 FL (80-99); MONOCYTES % (AUTO) 15.2 % (1.0-10.0); PLATELET COUNT 196 K/UL (150-450); RED BLOOD COUNT 5.37 M/UL (4.70-6.10); WHITE BLOOD COUNT 5.1 K/UL (4.8-10.8)
[2018-08-26 14:55] LABS: ANION GAP 11 mmol/L (5-15); BLOOD UREA NITROGEN 14 mg/dL (7-18); CALCIUM 9.7 MG/DL (8.5-10.1); CARBON DIOXIDE 27 MMOL/L (21-32); CHLORIDE 104 MMOL/L (98-107); CREATININE 1.1 MG/DL (0.55-1.30); POTASSIUM 3.8 MMOL/L (3.5-5.1); SODIUM 142 MMOL/L (136-145)
== END 2018-08-26 16:23 | disposition home or self-care (01) ==
LOC: LAB 14:23
DX: K76.89 Other specified diseases of liver (principal)
CPT/HCPCS: 36415; 80048; 82105; 85025

== ENCOUNTER 2018-09-06 09:24 | Outpatient (CLI) | payer MEDICARE, MEDICAID ==
--- NOTE | 2018-09-06 12:32 | Diagnostic Imaging Report ---
Indication: Evaluation of the liver mass diagnosed on recent ultrasound. Technique: Continuous helical transaxial imaging of the abdomen was obtained from the lung bases to the iliac crests during intravenous contrast administration. Dynamic scanning performed with arterial, venous, delayed sequences. Coronal 2-D reformats were also obtained. Study obtained in a Siemens sensation [address] Total Dose length Product (DLP): 2173.[address] Dose Index Volume (CTDIvol): 17.49,17.49,17.73 mGy Comparison: 05/27/2017 Findings: Within the right lobe of the liver there is a somewhat ill-defined hypoattenuating lesion best seen on delayed images and appearing slightly more defined on the most delayed sequence. The hypodense lesion has approximate measurement of 2.3 cm and was hypoechoic by ultrasound. There are similar appearing but smaller hypodensities within both lobes. None of these lesions appear to enhance but do not appear cystic. There is evidence of cirrhosis with nodularity of the liver surface. In light of this the findings may be regenerating nodules. Suggest short-term interval follow-up in 6 months and clinical correlation. Spleen is normal in size. There is mild bronchiectasis at the right lung base posterior medially with some reticular densities likely scarring. Pancreas and gallbladder are unremarkable. Aorta is mildly calcified. There is moderate reflux of contrast into the IVC which is suggestive of tricuspid regurgitation or right heart failure. There is calcification of aorta. Small hiatal hernia is present. Pancreas is unremarkable. Gallbladder is unremarkable. There is no ascites. There is partial visualization of a normal appendix. The sacroiliac joints appear fused bilaterally. Vacuum phenomena within a narrow L4-5 disc noted consistent with degenerative disc disease. There is a small umbilical hernia containing fat. IMPRESSION: 2.3 cm hypodense mass within the right lobe of the liver corresponding to recently demonstrated lesion on ultrasound. This may be a regenerating nodule in the setting of chronic liver disease/cirrhosis. Malignancy is not excluded. Please correlate clinically (ie. alpha-fetoprotein, or other known malignancy), and recommend obtaining a short-term follow-up in 6 months. Consider evaluation with CT PET. Other similar characteristic lesions noted in the liver. Other incidental findings as above The CT scanner at [facility] is accredited by the [employer] and the scans are performed using protocols designed to limit radiation exposure to as low as reasonably achievable to attain images of sufficient resolution adequate for diagnostic evaluation.
== END 2018-09-06 11:24 | disposition home or self-care (01) ==
LOC: CAT 09:24
DX: R16.0 Hepatomegaly, not elsewhere classified (principal); K44.9 Diaphragmatic hernia without obstruction or gangrene; M51.37 Other intervertebral disc degeneration, lumbosacral region; K42.9 Umbilical hernia without obstruction or gangrene
CPT/HCPCS: 74160; Q9967

== ENCOUNTER 2018-09-09 13:03 | Outpatient (CLI) | payer MEDICARE, MEDICAID ==
--- NOTE | 2018-09-09 13:42 | General Progress Note ---
Assessment/Plan Problem List: (1) History of drug use ICD Codes: Z87.898 - Personal history of other specified conditions SNOMED: 473456484 (2) Liver lesion ICD Codes: K76.9 - Liver disease, unspecified SNOMED: 371259742 (3) Hepatitis C ICD Codes: B19.20 - Unspecified viral hepatitis C without hepatic coma SNOMED: 36231601 (4) HTN (hypertension) ICD Codes: I10 - Essential (primary) hypertension SNOMED: 45473366 (5) Kidney calculi ICD Codes: N20.0 - Calculus of kidney SNOMED: 68295662 (6) Cirrhosis ICD Codes: K74.60 - Unspecified cirrhosis of liver SNOMED: 81855724 (7) Constipation ICD Codes: K59.00 - Constipation, unspecified SNOMED: 05777767 (8) COPD (chronic obstructive pulmonary disease) ICD Codes: J44.9 - Chronic obstructive pulmonary disease, unspecified SNOMED: 89533627 Assessment/Plan: CT reviewed plan liver biopsy Subjective ROS Limited/Unobtainable: Yes Allergies: Coded Allergies: No Known Allergies (Verified , 07/16/18) Objective General Appearance: alert EENT: normal ENT inspection Neck: supple Cardiovascular: normal rate Respiratory/Chest: decreased breath sounds Abdomen: normal bowel sounds, non tender, soft Extremities: non-tender Biju Ritter MD September 09, 2018 13:42
[2018-09-09 14:00] LABS: INR 1.1 (0.9-1.1)
[2018-09-09 14:16] VITALS: BP 138/88
== END 2018-09-09 15:44 | disposition home or self-care (01) ==
LOC: PAN 13:03
DX: K76.9 Liver disease, unspecified (principal); Z87.898 Personal history of other specified conditions; B19.20 Unspecified viral hepatitis C without hepatic coma; I10 Essential (primary) hypertension; N20.0 Calculus of kidney; K74.60 Unspecified cirrhosis of liver; K59.00 Constipation, unspecified; J44.9 Chronic obstructive pulmonary disease, unspecified
CPT/HCPCS: 36415; 85610; 85730; G0463; 99212

== ENCOUNTER 2018-09-14 09:07 | Outpatient (CLI) | payer MEDICARE, MEDICAID ==
[2018-09-14] VITALS (14 sets, daily range): BP systolic 120–157; BP diastolic 82–105
[~2018-09-14] VITALS: Ht 188 cm; Wt 83.9 kg
[2018-09-14] MEDS ORDERED: HYDROcodone/Acetamin 5/325 tab ORAL PRN (10:15)
[2018-09-14] MEDS ORDERED: Lidocaine 1% Plain 30 ml INJ SCH (11:00)
--- NOTE | 2018-09-14 12:57 | Diagnostic Imaging Report ---
Indication: Liver lesions. History of cirrhosis. Elevated alpha-fetoprotein. Concern for malignancy. Procedure: Informed consent for the procedure was obtained. The risks, benefits, and alternatives to the procedure were discussed with the patient. We were given verbal and written consent to proceed. The abdomen was prepped and draped in a sterile fashion. Lidocaine was administered for local anesthesia. Dermatotomy was made. Using ultrasound guidance vacu-cut biopsy device was advanced into the liver targeting a hypoechoic lesion in the right lobe adjacent to the gallbladder. The lesion on ultrasound measures about 2.6 x 1.7 cm. Biopsy was performed several times. Specimens placed in formalin. The larger core biopsy device was not used as there was a very narrow percutaneous window through which the biopsy could be performed. There was a substantial risk that the needle could traverse part of the colon. Therefore the larger core biopsy system (18g/16g trocar)typically used in this situation was not utilized. There were no immediate complications. The patient tolerated the procedure well. Impression: Status post successful ultrasound guided, targeted biopsy of a right lobe liver mass.
--- NOTE | 2018-09-14 14:30 | NUR ---
NURSE NOTES: Dr. Delmy Fraire assessed patient at bedside prior to discharge regarding patient abdominal discomfort. No new orders received. Patient readily tolerating PO intake, flatus is present and patient able to urinate. Patient will be discharged home accompanied by Garett gonzalez. Patient instructed that if abdominal pain/distension worsens or any increased bleeding occurs from the puncture site to report to the nearest emergency room emergently. Patient verbalized understanding of instruction.
== END 2018-09-14 11:07 | disposition home or self-care (01) ==
LOC: CAT 09:07 → EDSTATUS 10:00 → CAT 11:07
DX: K76.9 Liver disease, unspecified (principal); K74.60 Unspecified cirrhosis of liver
CPT/HCPCS: 47000; 76942; J2001

== ENCOUNTER 2018-09-23 13:24 | Outpatient (CLI) | payer MEDICARE, MEDICAID ==
[2018-09-23 13:10] VITALS: BP 129/96
--- NOTE | 2018-09-23 15:05 | General Progress Note ---
Assessment/Plan Problem List: (1) Liver mass ICD Codes: R16.0 - Hepatomegaly, not elsewhere classified SNOMED: 089305185 (2) Constipation ICD Codes: K59.00 - Constipation, unspecified SNOMED: 36911531 (3) COPD (chronic obstructive pulmonary disease) ICD Codes: J44.9 - Chronic obstructive pulmonary disease, unspecified SNOMED: 77480786 (4) History of drug use ICD Codes: Z87.898 - Personal history of other specified conditions SNOMED: 416411370 (5) Liver lesion ICD Codes: K76.9 - Liver disease, unspecified SNOMED: 201076802 (6) Hepatitis C ICD Codes: B19.20 - Unspecified viral hepatitis C without hepatic coma SNOMED: 16736041 (7) HTN (hypertension) ICD Codes: I10 - Essential (primary) hypertension SNOMED: 77299169 (8) Cirrhosis ICD Codes: K74.60 - Unspecified cirrhosis of liver SNOMED: 93462671 (9) Kidney calculi ICD Codes: N20.0 - Calculus of kidney SNOMED: 75006242 Assessment/Plan: repeat liver biopsy at [facility] Subjective ROS Limited/Unobtainable: Yes Allergies: Coded Allergies: No Known Allergies (Verified , 07/16/18) Objective General Appearance: alert EENT: normal ENT inspection Neck: supple Cardiovascular: normal rate Respiratory/Chest: lungs clear Abdomen: normal bowel sounds, non tender, soft Extremities: non-tender Biju Ritter MD Sep 23, 2018 15:05
== END 2018-09-23 15:23 | disposition home or self-care (01) ==
LOC: PAN 13:24
DX: R16.0 Hepatomegaly, not elsewhere classified (principal); K59.00 Constipation, unspecified; J44.9 Chronic obstructive pulmonary disease, unspecified; Z87.898 Personal history of other specified conditions; K76.9 Liver disease, unspecified; B19.20 Unspecified viral hepatitis C without hepatic coma; I10 Essential (primary) hypertension; K74.60 Unspecified cirrhosis of liver; N20.0 Calculus of kidney
CPT/HCPCS: 99212

== ENCOUNTER → 2018-10-06 | Outpatient (CLI) | payer MEDICARE, MEDICAID ==
[2018-10-06 11:45] LABS: BASOPHILS % (AUTO) 1.3 % (0.0-2.0); EOSINOPHILS % (AUTO) 3.4 % (0.0-3.0); HEMATOCRIT 49.4 % (42.0-52.0); HEMOGLOBIN 15.9 G/DL (14.2-18.0); LYMPHOCYTES % (AUTO) 28.6 % (20.0-45.0); MEAN CORPUSCULAR VOLUME 88 FL (80-99); MONOCYTES % (AUTO) 13.3 % (1.0-10.0); NEUTROPHILS % (AUTO) 53.4 % (45.0-75.0); PLATELET COUNT 162 K/UL (150-450); RED BLOOD COUNT 5.63 M/UL (4.70-6.10); RED CELL DISTRIBUTION WIDTH 13.3 % (11.6-14.8); WHITE BLOOD COUNT 4.6 K/UL (4.8-10.8)
[2018-10-06 11:59] LABS: INR 1.1 (0.9-1.1)
[2018-10-06 12:05] LABS: ALANINE AMINOTRANSFERASE 38 U/L (12-78); ALBUMIN 4.1 G/DL (3.4-5.0); ALBUMIN/GLOBULIN RATIO 0.9 (1.0-2.7); ALKALINE PHOSPHATASE 99 U/L (46-116); ANION GAP 12 mmol/L (5-15); ASPARTATE AMINO TRANSFERASE 25 U/L (15-37); BILIRUBIN,TOTAL 0.9 MG/DL (0.2-1.0); BLOOD UREA NITROGEN 17 mg/dL (7-18); CALCIUM 10.1 MG/DL (8.5-10.1); CARBON DIOXIDE 27 MMOL/L (21-32); CHLORIDE 104 MMOL/L (98-107); SODIUM 143 MMOL/L (136-145)
== END | disposition home or self-care (01) ==
LOC: LAB 11:13
DX: K76.89 Other specified diseases of liver (principal); K74.60 Unspecified cirrhosis of liver; B19.20 Unspecified viral hepatitis C without hepatic coma
CPT/HCPCS: 36415; 80053; 85025; 85610; 85730

== ENCOUNTER 2018-10-25 13:03 | Outpatient (CLI) | payer MEDICARE, MEDICAID ==
--- NOTE | 2018-10-25 14:05 | General Progress Note ---
Assessment/Plan Problem List: (1) Liver lesion ICD Codes: K76.9 - Liver disease, unspecified SNOMED: 258330482 (2) Liver mass ICD Codes: R16.0 - Hepatomegaly, not elsewhere classified SNOMED: 761873187 (3) Hepatitis C ICD Codes: B19.20 - Unspecified viral hepatitis C without hepatic coma SNOMED: 81242958 (4) HTN (hypertension) ICD Codes: I10 - Essential (primary) hypertension SNOMED: 64798608 (5) Cirrhosis ICD Codes: K74.60 - Unspecified cirrhosis of liver SNOMED: 14570340 (6) Constipation ICD Codes: K59.00 - Constipation, unspecified SNOMED: 29750967 (7) COPD (chronic obstructive pulmonary disease) ICD Codes: J44.9 - Chronic obstructive pulmonary disease, unspecified SNOMED: 16785369 Assessment/Plan: new HCC referred to Dr Sánchez and josé Petersen Subjective ROS Limited/Unobtainable: Yes Allergies: Coded Allergies: No Known Allergies (Verified , 07/16/18) Objective General Appearance: alert EENT: normal ENT inspection Neck: supple Cardiovascular: normal rate Respiratory/Chest: decreased breath sounds Abdomen: normal bowel sounds, non tender, soft Extremities: non-tender Biju Ritter MD Oct 25, 2018 14:05
[2018-10-25 16:21] VITALS: BP 141/92
== END 2018-10-25 15:00 | disposition home or self-care (01) ==
LOC: PAN 13:03
DX: K76.9 Liver disease, unspecified (principal); R16.0 Hepatomegaly, not elsewhere classified; B19.20 Unspecified viral hepatitis C without hepatic coma; I10 Essential (primary) hypertension; K74.60 Unspecified cirrhosis of liver; K59.00 Constipation, unspecified; J44.9 Chronic obstructive pulmonary disease, unspecified

== ENCOUNTER 2019-01-11 12:05 | Outpatient (CLI) | payer MEDICARE, MEDICAID | END 2019-01-11 14:05 | disposition home or self-care (01) | LOC: LAB 12:05 | DX: N40.1 Benign prostatic hyperplasia with lower urinary tract symptoms (principal) | CPT/HCPCS: 36415; 84153 ==

== ENCOUNTER 2019-06-09 02:34 | Inpatient (IN) | payer MEDICARE, MEDICAID ==
[~2019-06-09] VITALS: Ht 188 cm; Wt 73.0 kg
[2019-06-09] VITALS (7 sets, daily range): BP systolic 99–114; BP diastolic 63–80
--- NOTE | 2019-06-09 02:34 | NUR ---
ED Nurse Note: Bilateral lower extremity non-pitting edema noted.
--- NOTE | 2019-06-09 02:34 | NUR ---
ED Nurse Note: Patient brought in by ambulance from home d/t SOB status post fall. Patient aao x 4 and ambulatory. Patient was on non-rebreather 15L satting at 100% per EMS. Patient placed on steward/stewardess third class and changed into gown. RT and ERMD at bedside. ERMD inserted 18g Right EJ IV, blood collected and sent to lab. Patient stable upon assessment.
--- NOTE | 2019-06-09 02:54 | Emergency Room Report ---
History of Present Illness General Chief Complaint: Upper Respiratory Illness Source: Patient Present Illness HPI This a 73-year-old male with a history of cirrhosis and COPD. He presents with respiratory distress and shortness of breath. Onset for about 2 weeks now. Getting worse where tonight he could not breathe and called 911. He said his inhalers not helping. No nausea no vomiting. Cough is nonproductive nature. No chest pain. Worse with exertion. Better with rest. Allergies: Coded Allergies: No Known Allergies (Verified , 07/16/18) Patient History Past Medical History: see triage record, old chart reviewed, HTN, CAD, COPD Past Surgical History: other Pertinent Family History: none Social History: Denies: smoking Immunizations: other Reviewed Nursing Documentation: PMH: Agreed; PSxH: Agreed Nursing Documentation-PMH Hx Cardiac Problems: Yes Hx Hypertension: Yes Hx Asthma: Yes Hx COPD: Yes - EMPHASEMA Hx Cancer: Yes - UNK ETIOLOGY Hx Gastrointestinal Problems: Yes - HCC Hx Neurological Problems: No Review of Systems Eye: Denies: eye pain, blurred vision ENT: Denies: ear pain, nose congestion, throat swelling Respiratory: Reports: cough, shortness of breath Cardiovascular: Denies: chest pain, palpitations Gastrointestinal: Denies: abdominal pain, diarrhea, nausea, vomiting Musculoskeletal: Denies: back pain, joint pain Skin: Denies: rash Neurological: Denies: headache, numbness Endocrine: Denies: increased thirst, increased urine Hematologic/Lymphatic: Denies: easy bruising All Other Systems: negative except mentioned in HPI Physical Exam Vital Signs Date Time Temp Pulse Resp B/P (MAP) Pulse Ox O2 Delivery O2 Flow Rate FiO2 06/09/19 02:28 98.1 129 22 105/73 (84) 100 Non-Rebreather 15.0 Vitals with hypoxia and tachycardia Sp02 EP Interpretation: reviewed, abnormal General Appearance: alert, moderate distress, thin, Chronically Ill Head: normocephalic, atraumatic Eyes: bilateral eye PERRL, bilateral eye EOMI, bilateral eye scleral icterus ENT: hearing grossly normal, normal pharynx Neck: full range of motion, supple, no meningismus Respiratory: chest non-tender, respiratory distress, decreased breath sounds, accessory muscle use, wheezing Cardiovascular #1: regular rate, rhythm, no murmur Gastrointestinal: normal bowel sounds, non tender, no mass, no organomegaly, no bruit, non-distended Musculoskeletal: back normal, normal range of motion, gait/station normal Psychiatric: mood/affect normal Procedures Critical Care Time Critical Care Time Critical care is mandated in this patient who presented with respiratory distress. Patient require my urgent intervention to attenuate the risks of respiratory collapse which may lead to cardiovascular collapse and . Critical care time is 35 minutes excluding any reportable procedure. Critical care time included evaluation, multiple reevaluation, looking at old charts, interpreting laboratory and diagnostic data, discussing case with patient and family and consultants, and charting. Medical Decision Making Diagnostic Impression: Primary Impression: COPD with exacerbation Additional Impressions: Respiratory failure with hypoxia Qualified Codes: J96.21 - Acute and chronic respiratory failure with hypoxia Cirrhosis Qualified Codes: K74.60 - Unspecified cirrhosis of liver ER Course Patient presents with COPD exacerbation and respiratory distress. Improved with nebulizer treatment and steroid. Because of his history of COPD and increasing cough and oxygen requirement, I placed him on antibiotics. No obvious pneumonia. Patient will be admitted for further work-up and treatment. I discussed the case with Dr. Beltran for admission. EKG Diagnostic Results Rate: tachycardiac Rhythm: NSR ST Segments: no acute changes Rhythm Strip Diag. Results EP Interpretation: yes Rate: 110 Rhythm: NSR, no PVC's, no ectopy Chest X-Ray Diagnostic Results Chest X-Ray Diagnostic Results : Chest X-Ray Ordered: Yes # of Views/Limited/Complete: 1 View Indication: Shortness of Breath EP Interpretation: Yes Interpretation: no consolidation, no effusion, no pneumothorax, other - copd with atelectasis Impression: Other - copd Electronically Signed by: Nicholas Way MD Last Vital Signs Date Time Temp Pulse Resp B/P (MAP) Pulse Ox O2 Delivery O2 Flow Rate FiO2 06/09/19 02:28 98.1 129 22 105/73 (84) 100 Non-Rebreather 15.0 Status: improved Disposition: ADMITTED INPATIENT Condition: Serious Nicholas Way MD Jun 09, 2019 02:54
[2019-06-09 02:57] LABS: HEMATOCRIT 37.9 % (42.0-52.0); HEMOGLOBIN 12.3 G/DL (14.2-18.0); MEAN CORPUSCULAR VOLUME 89 FL (80-99); PLATELET COUNT 210 K/UL (150-450); RED BLOOD COUNT 4.26 M/UL (4.70-6.10); RED CELL DISTRIBUTION WIDTH 17.7 % (11.6-14.8); WHITE BLOOD COUNT 15.7 K/UL (4.8-10.8)
--- NOTE | 2019-06-09 02:59 | NUR ---
ED Nurse Note: Xray at bedside.
[2019-06-09] MEDS ORDERED: Ipratropium 0.02% Inh Soln 2.5ml UD HHN ONE (03:00)
[2019-06-09] MEDS ORDERED: Albuterol ud Inhalation HHN ONE (03:00)
[2019-06-09] MEDS ORDERED: Solu-MEDROL 125mg Inj IVP ONE (03:00)
--- NOTE | 2019-06-09 03:01 | NUR ---
ED Nurse Note: Patient provided with urinal to collect urine sample.
[2019-06-09 03:08] LABS: ANION GAP 10 mmol/L (5-15); BLOOD UREA NITROGEN 59 mg/dL (7-18); CALCIUM 10.5 MG/DL (8.5-10.1); CARBON DIOXIDE 24 MMOL/L (21-32); CHLORIDE 103 MMOL/L (98-107); CREATININE 1.6 MG/DL (0.55-1.30); POTASSIUM 4.8 MMOL/L (3.5-5.1); SODIUM 137 MMOL/L (136-145)
[2019-06-09 03:19] LABS: ALANINE AMINOTRANSFERASE 116 U/L (12-78); ALBUMIN 1.7 G/DL (3.4-5.0); ALBUMIN/GLOBULIN RATIO 0.2 (1.0-2.7); ALKALINE PHOSPHATASE 934 U/L (46-116); ASPARTATE AMINO TRANSFERASE 362 U/L (15-37); BILIRUBIN,TOTAL 6.3 MG/DL (0.2-1.0)
[2019-06-09 03:22] LABS: BILIRUBIN,DIRECT 5.9 MG/DL (0.0-0.3)
[2019-06-09] MEDS ORDERED: HYDROCODON-ACE1 EA13 ORAL (03:34)
--- NOTE | 2019-06-09 03:36 | NUR ---
ED Nurse Note: Belongings list and med recon completed.
--- NOTE | 2019-06-09 03:49 | NUR ---
ED Nurse Note: Patient on 5L NC satting at 98% Addendum: 06/09/19 at 0433 by ALY ED Nurse Note: Patient on 2L NC satting at 98%
[2019-06-09 03:59] LABS: APPEARANCE,URINE CLEAR; BILIRUBIN, URINE 2+ (NEGATIVE); GLUCOSE, URINE (UA) NEGATIVE (NEGATIVE); KETONES,URINE NEGATIVE (NEGATIVE); LEUKOCYTE ESTERASE ,URINE 1+ (NEGATIVE); NITRITE,URINE NEGATIVE (NEGATIVE); PH,URINE 5 (4.5-8.0); PROTEIN,URINE 2+ (NEGATIVE); UROBILINOGEN,URINE 8 MG/DL (0.0-1.0)
[2019-06-09] MEDS ORDERED: cefTRIAXone 1 GM in NS 55 ML IVPB ONE (04:00)
[2019-06-09] MEDS ORDERED: Azithromycin 500 MG in NS 275 ML IV ONE (04:00)
--- NOTE | 2019-06-09 04:02 | NUR ---
ED Nurse Note: Rocephin initiated, Azithromycin held until Rocephin completed d/t uncertain IV compatibility.
[2019-06-09 04:09] LABS: COLOR,URINE YELLOW
--- NOTE | 2019-06-09 07:10 | NUR ---
HAND-OFF: Report given to JOVI Tomlin.
--- NOTE | 2019-06-09 08:50 | NUR ---
ED Nurse Note: Pt cleared to be transferred per MD. Pt is alert and orientedx4 and set up on monitor. Pt took all belongings. Report given Antoine ESPANA. Pt received by JOVI.
--- NOTE | 2019-06-09 09:08 | Diagnostic Imaging Report ---
Indication: Shortness of breath Technique: One view of the chest Comparison: 07/01/2017 Findings: Lungs and pleural spaces are clear. Heart size is normal. No significant interim change Impression: No acute process
--- NOTE | 2019-06-09 09:40 | NUR ---
NURSE NOTES: Pt admitted to the floor, vitals noted and WNMd Devin Bradford notified, IV intact, call light and instructions on how to use it were given, pt acknowledged teaching, senior administrative associate placed and noting NSR, belongs reviewed with ED RN and patient and all agreed with what was listed, $13 will stay with the pt, no s/s of distress or sob noted.
[2019-06-09] MEDS ORDERED: HYDROcodone/Acetamin 10/325 tab ORAL SCH (13:30)
[2019-06-09] MEDS ORDERED: HYDROcodone/Acetamin 10/325 tab ORAL PRN (13:45)
--- NOTE | 2019-06-09 14:17 | NUR ---
*-* NO INFORMATION IN THE BAR UNABLE TO SEND CLINICALS OR REVIEWS *-*
--- NOTE | 2019-06-09 14:50 | NUR ---
CASE MANAGEMENT: INITIAL REVIEW 73YR OLD MALE BIBA FROM HOME CC: UPPER RESP ILLNESS SI:COPD WITH EXACERBATION . RESP FAILURE WITH HYPOXIA . CIRRHOSIS 98.1 129 22 105/73 100% ON 15L NON-REBREATHER WBC 15.7 H/H 12.3/37.9 BUN 59 CREAT 1.6 BG 135 CA+ 10.5 T.SOHAM 6.3 D.SOHAM 5.9 AST/ALT 362/116 ALK-PHOS 934 BNP 339 T.PROTEIN 8.6 IS:IF NS BOLUS X1 IV ROCEPHIN X1 IV ZITHROMAX X1 IV SOLU-MEDROL X1 PROVENTIL HHN X1 ATROVENT HHN X1 CHEST X-RAY- NO ACUTE PROCESS \: 2E TELE UNIT PLAN: PT EVAL BLOOD CX-PENDING SPUTUM CX-PENDING BREATHING TREATMENT - Q4HR INTERQUAL MET
[2019-06-09] MEDS: Albuterol/Ipratropium 3ml neb HHN SCH ×3 (15:20→23:00)
[2019-06-09] MEDS: Solu-MEDROL 40mg Inj IVP SCH ×2 (15:21→21:49)
[2019-06-09] MEDS: Piperacillin/Tazobactam 3.375 GM in NS 110 ML IVPB SCH ×2 (15:23→21:49)
[2019-06-09] MEDS: NovoLOG Insulin Flexpen SUBQ SCH ×2 (17:00→21:00)
--- NOTE | 2019-06-09 17:00 | History and Physical Report ---
DATE OF ADMISSION: 06/09/2019 CHIEF COMPLAINT AND REASON FOR HOSPITALIZATION: The patient admitted for weakness, dizziness, difficulty walking, shortness of breath. HISTORY OF PRESENT ILLNESS: The patient is well known to me. This is a 73-year-old man with a history of COPD, hypertension, hepatocellular carcinoma, and hepatitis C. He received treatment for hepatitis C but was found to have liver nodules and status post ablation but has had regrowth of liver nodules, multiple. Chemotherapy was pending. He has had diarrhea and weakness. It is not clear for him if he is taking lactulose at this time. The patient is a somewhat lethargic compared to baseline, more short of breath, failure to thrive. He is admitted for the above. Code status, DNR. HOME MEDICATIONS: Include albuterol inhalation every 4 hours. p.r.n., and albuterol inhaler p.r.n., amlodipine 5 mg daily, aspirin 81 mg daily, DSS 100 mg b.i.d., Arnuity Ellipta inhalation daily, [place] p.r.n., pravastatin 20 mg daily, tamsulosin 0.4 mg at bedtime, Spiriva one daily, vitamins one daily. HABITS: He is a former heavy smoker and quit many years. Some drugs in the past. No heavy alcohol. SOCIAL HISTORY: He is . Disabled. SYSTEM REVIEW: HEAD, EYES, EARS, NOSE, AND THROAT: Vision and hearing is good. ENDOCRINE: No diabetes or thyroid disease. PULMONARY: Severe COPD as above. He has been breathing better for the last year and a half. This is the first recent exacerbation. CARDIAC: No definite angina or [place]. He has had hypertension. GASTROINTESTINAL: Recent diarrhea. No nausea and vomiting. He has had weight loss. GENITOURINARY: No dysuria or hematuria. There is some BPH. NEUROLOGIC: No CVA or seizures. PHYSICAL EXAMINATION: GENERAL: The patient is a thin man with BMI of 20.7. VITAL SIGNS: Temperature 96.3, pulse 86, respirations 20, blood pressure 100/63. HEAD, EYES, EARS, NOSE, AND THROAT: Oral mucosa slightly dry. NECK: No adenopathy or thyroid enlargement. LUNGS: Clear. Distant breath sounds. HEART: Regular rhythm. No murmur. ABDOMEN: Soft without organomegaly or masses. I am unable to feel the liver edge but there is some distention, possible ascites. EXTREMITIES: Show 1 to 2+ edema. NEUROLOGIC: He is alert with slurred speech. Ocular motions intact in all directions. Smile is symmetric. He moves all extremities. PERTINENT LABORATORY DATA: Show BUN 59, creatinine 1.6. Bilirubin 6.3, elevated AST and ALT, albumin 1.7. White count 15.7, hemoglobin is 12.3. Urinalysis shows 0-2 white cells. Chest x-ray was done in the emergency room shows no acute disease. IMPRESSION: 1. 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 2. Dehydration. 3. COPD exacerbation . 4. Failure to thrive. PLAN: 1. Hydration with stabilization of the above problems. 2. Pulmonary care. 3. We will get GI consultation. 4. His condition is grave. Berto Beltran M.D. DR: Stephanie JOB#: [id number] CC:
--- NOTE | 2019-06-09 18:56 | NUR ---
HAND-OFF: Report given to Harley Lane.
--- NOTE | 2019-06-09 19:00 | NUR ---
NURSE NOTES: Got report from Antoine ESPANA. Pt in stable condition. Denies any pain. No s/s of distress or discomfort noted. Pt resting in bed comfortably. Bed in low and locked position, call light within reach, bedside table within reach. Continue to monitor.
--- NOTE | 2019-06-09 19:15 | Consultation ---
DATE OF CONSULTATION: 06/09/2019 GASTROENTEROLOGY CONSULTATION CONSULTING PHYSICIAN: Biju Ritter M.D. CHIEF COMPLAINT: Jaundice. HISTORY OF PRESENT ILLNESS: This is a very pleasant, unfortunate 73-year-old male, known to me from clinic. I have been following him with hepatitis C. The patient and eradicated hepatitis C in the followup visit and in August 2018, we found out that he has liver malignancy. The patient was referred by Dr. Petersen and Dr. Sánchez for followup for histopathology of liver cancer and unfortunately, he never follows in my office. Now he presented to the hospital complaining of jaundice and shortness of breath, and GI consultation was requested for further evaluation. PAST MEDICAL HISTORY: 1. Liver cirrhosis. 2. Hepatitis C. 3. Liver cancer, HCC. 4. COPD. 5. Kidney stones. 6. Hypertension. ALLERGIES: No known drug allergies. MEDICATIONS: Please see medication reconciliation list. FAMILY HISTORY: Noncontributory. SOCIAL HISTORY: The patient has no recent history of tobacco, alcohol, or IV drug abuse. PAST SURGICAL HISTORY: 1. Left second toe corn removal. 2. Cataract. PHYSICAL EXAMINATION: VITAL SIGNS: Temperature 96.3, pulse is 86, respirations 20, and blood pressure is 100/63. HEENT: Normocephalic. Sclerae deeply icteric. NECK: Supple. No evidence of obvious lymphadenopathy. CARDIOVASCULAR: Regular rate and rhythm. Plus S1, S2. LUNGS: Decreased breath sounds bilaterally and diffusely. ABDOMEN: Soft, nontender. No rebound. No guarding. No peritoneal sign. The patient has evidence of possible ascites. EXTREMITIES: Trace bilateral lower extremity edema. LABORATORY DATA: White count is 16,000, hemoglobin 12, hematocrit 37, and platelets of 210,000. Chem-7, sodium 137, potassium 4.8, BUN is 59, creatinine is 1.6, glucose is 135. Bilirubin total is 6.3, direct bilirubin is 5.9, AST 362, ALT 116, and alkaline phosphatase of 934. ASSESSMENT AND PLAN: This is a 73-year-old male with history of liver cancer, followed at [facility] by Dr. Sánchez and Dr. Petersen, who presented to the hospital with shortness of breath, COPD exacerbation, jaundice, and possible ascites. I plan to get an abdominal ultrasound and repeat liver function tests for tomorrow. If bilirubin is elevated because of the diffuse liver metastasis, then the patient has overall poor prognosis and no procedure can be done at this time. If there is evidence of focal biliary obstruction causing jaundice, we will plan to do an ERCP, so therefore we recommend the patient to be kept NPO after midnight for possible procedure depending on what the ultrasound shows. The patient also needs to be seen by oncologist, tour driver, and as I mentioned, we will recommend repeat laboratories tomorrow. I want to thank Dr. Beltran for this kind referral. Biju Ritter M.D. DR: Kj JOB#: [id number] CC: Berto Beltran M.D.; Fax#: [phone]
[2019-06-09] MEDS ORDERED: Tamsulosin 0.4mg cap ORAL SCH (21:00)
[2019-06-09] MEDS ORDERED: Heparin 5000 units/ml inj SUBQ SCH (21:00)
[2019-06-10] VITALS: BP 109/73
[2019-06-10] MEDS: Albuterol/Ipratropium 3ml neb HHN SCH ×6 (03:00→23:16)
[2019-06-10 04:00] VITALS: BP 110/74
[2019-06-10] MEDS: NovoLOG Insulin Flexpen SUBQ SCH ×3 (06:30→16:25)
[2019-06-10] MEDS: Solu-MEDROL 40mg Inj IVP SCH ×3 (06:46→21:39)
[2019-06-10] MEDS: Piperacillin/Tazobactam 3.375 GM in NS 110 ML IVPB SCH ×3 (06:47→21:39)
[2019-06-10 07:14] LABS: INR 1.6 (0.9-1.1)
--- NOTE | 2019-06-10 07:15 | NUR ---
HAND-OFF: Report given to Luciano ESPANA.
[2019-06-10 07:21] LABS: HEMATOCRIT 35.8 % (42.0-52.0); HEMOGLOBIN 11.5 G/DL (14.2-18.0); MEAN CORPUSCULAR VOLUME 90 FL (80-99); PLATELET COUNT 206 K/UL (150-450); RED BLOOD COUNT 3.99 M/UL (4.70-6.10); RED CELL DISTRIBUTION WIDTH 17.6 % (11.6-14.8); WHITE BLOOD COUNT 9.8 K/UL (4.8-10.8)
[2019-06-10 07:53] LABS: ALANINE AMINOTRANSFERASE 85 U/L (12-78); ALBUMIN 1.3 G/DL (3.4-5.0); ALBUMIN/GLOBULIN RATIO 0.2 (1.0-2.7); ALKALINE PHOSPHATASE 705 U/L (46-116); ANION GAP 14 mmol/L (5-15); ASPARTATE AMINO TRANSFERASE 204 U/L (15-37); BILIRUBIN,TOTAL 3.9 MG/DL (0.2-1.0); BLOOD UREA NITROGEN 64 mg/dL (7-18); CALCIUM 9.2 MG/DL (8.5-10.1); CARBON DIOXIDE 18 MMOL/L (21-32); CHLORIDE 103 MMOL/L (98-107); CREATININE 1.8 MG/DL (0.55-1.30); POTASSIUM 4.9 MMOL/L (3.5-5.1); SODIUM 135 MMOL/L (136-145)
[2019-06-10 07:54] LABS: BILIRUBIN,DIRECT 3.4 MG/DL (0.0-0.3)
[2019-06-10 08:00] VITALS: BP 106/71
--- NOTE | 2019-06-10 08:00 | NUR ---
NURSE NOTES: Pt awake/alert in bed, breathing easily on 2 lpm nasal cannula, denies SOB and denies pain at this time. VS stable with SR @ 86 on monitor. IV access REJ with NS running at 150 ml/hr. Condom cath in place draining to collection bag at foot of bed. Bed left in low position, side rails uup x 2 and call light left near pt's hand.
--- NOTE | 2019-06-10 08:49 | NUR ---
RD ASSESSMENT & RECOMMENDATIONS SEE CARE ACTIVITY FOR COMPLETE ASSESSMENT DAILY ESTIMATED NEEDS: Needs based on Cancer, underweight 73.2kg 30-35 kcals/kg 0858-9053 total kcals 1-2 g protein/kg 73-146 g total protein 25-30 mL/kg 2218-1744 total fluid mLs NUTRITION DIAGNOSIS: Increased kcal and pro needs r/t cancer and wasting as evidenced by pt w/ moderate to severe temporal and clavicular wasting, pt is 85% of ideal body weight, dx of liver cancer. CURRENT DIET: Regular ms chopped PO DIET RECOMMENDATIONS: W/ poor intake rec liberalized Regular diet / texture as tolerated ADDITIONAL RECOMMENDATIONS: 1) Add Ensure TID w/ meals + snacks in b/w meals as tolerated 2) Txr pt to bed w/ scale for accurate CBW 3) W/ improved po intake, rec Low Na diet
--- NOTE | 2019-06-10 09:03 | Diagnostic Imaging Report ---
Indication: Abdominal pain. Abnormal liver function tests Technique: Zimmer-scale and duplex images of the upper abdomen were obtained Comparison: 08/05/2018; also abdomen CT 09/06/2018 Findings: Gallbladder demonstrates wall thickening, wall thickness is over 3 mm. No calculi demonstrated. Sonographic [place]'s sign is negative. Common bile duct measures 3 mm in diameter. No intrahepatic biliary ductal dilatation. Liver demonstrates diffusely heterogeneous echogenicity and surface nodularity. Multiple masses, both hypoechoic and echogenic, are seen within the liver, largest measuring up to 2.6 cm in diameter. These are more numerous and more striking than on the previous exam. Portal vein and hepatic veins are patent. Pancreas is unremarkable. However, a hypoechoic 3.6 cm mass is seen adjacent to the pancreatic head which is not demonstrated previously. Spleen is unremarkable. Left kidney measures 11.4 cm in length. Right kidney measures 11.2 cm length. Right kidney demonstrates slightly increased echogenicity, left kidney demonstrates normal echogenicity. Echogenic foci are seen in the left renal sinus. No focal abnormality . Abdominal aorta is partially obscured by bowel gas, visualized portions are non-aneurysmal . There is a small amount of ascites fluid present Impression: Multiple liver masses, much more numerous and conspicuous than on previous study of 08/05/2018. Findings are suspicious for either metastatic or multifocal primary neoplasm, particularly given stated clinical history of liver cancer. Diffusely heterogeneous liver with progressive surface nodularity, consistent with cirrhotic change, and also likely related to the above Trace ascites Hypoechoic mass adjacent to the pancreatic head, not evident previously, may represent a focus of lymphadenopathy Echogenic foci in the left renal sinus, could represent calculi, but suspect artifactual given apparent visibility on previous sonogram but absence of calcifications on CT Incomplete visualization of the abdominal aorta
--- NOTE | 2019-06-10 09:26 | General Progress Note ---
Assessment/Plan Problem List: (1) Dehydration ICD Codes: E86.0 - Dehydration SNOMED: 69484374 (2) Hepatic encephalopathy ICD Codes: K72.90 - Hepatic failure, unspecified without coma SNOMED: 45735202 (3) Hepatocellular carcinoma ICD Codes: C22.0 - Liver cell carcinoma SNOMED: 417500666 (4) Cirrhosis ICD Codes: K74.60 - Unspecified cirrhosis of liver SNOMED: 38139127 Qualifiers: Qualified Codes: K74.60 - Unspecified cirrhosis of liver (5) COPD with exacerbation ICD Codes: J44.1 - Chronic obstructive pulmonary disease with (acute) exacerbation SNOMED: 563347035 Assessment/Plan: hydrate, lactulose, hhn, taper steroids considering hospice Subjective Constitutional: Reports: weakness HEENT: Reports: no symptoms Cardiovascular: Reports: no symptoms Respiratory: Reports: cough, shortness of breath Gastrointestinal/Abdominal: Reports: diarrhea, poor appetite Genitourinary: Reports: no symptoms Neurologic/Psychiatric: Reports: other - confusion Endocrine: Reports: no symptoms Hematologic/Lymphatic: Reports: no symptoms Allergies: Coded Allergies: No Known Allergies (Verified , 07/16/18) Objective Last 24 Hour Vital Signs Date Time Temp Pulse Resp B/P (MAP) Pulse Ox O2 Delivery O2 Flow Rate FiO2 06/10/19 07:44 76 16 97 Nasal Cannula 2.0 28 06/10/19 07:41 80 17 98 Nasal Cannula 2.0 28 76 15 97 06/10/19 04:00 97.0 80 19 110/74 (86) 97 06/10/19 04:00 80 06/10/19 02:04 Nasal Cannula 2.0 06/10/19 00:00 83 06/10/19 00:00 97.0 83 19 109/73 (85) 98 06/09/19 21:00 Nasal Cannula 2.0 06/09/19 20:00 97.0 82 17 102/71 (81) 98 06/09/19 20:00 80 06/09/19 19:42 84 18 99 Nasal Cannula 2.0 28 82 18 98 06/09/19 19:42 82 18 98 Nasal Cannula 2.0 28 06/09/19 16:41 91 06/09/19 16:04 96.8 82 22 100/68 (79) 96 06/09/19 15:30 83 18 95 Nasal Cannula 2.0 28 06/09/19 15:30 84 18 99 Nasal Cannula 2.0 28 83 18 95 06/09/19 12:00 96.3 86 20 100/63 (75) 98 06/09/19 11:29 86 06/09/19 10:36 Nasal Cannula 2.0 06/09/19 09:45 96.4 85 20 99/68 (78) 98 Intake and Output 06/09/19 06/10/19 19:00 07:00 Intake Total 1050 ml Output Total 300 ml Balance 750 ml Intake IV Total 1050 ml Output Urine Total 300 ml # Voids 1 # Bowel Movements 1 2 Laboratory Tests 06/10/19 05:47: White Blood Count 9.8, Red Blood Count 3.99L, Hemoglobin 11.5L, Hematocrit 35.8L , Mean Corpuscular Volume 90, Mean Corpuscular Hemoglobin 28.9, Mean Corpuscular Hemoglobin Concent 32.2, Red Cell Distribution Width 17.6H, Platelet Count 206, Mean Platelet Volume 8.0, Neutrophils (%) (Auto) , Lymphocytes (%) (Auto) , Monocytes (%) (Auto) , Eosinophils (%) (Auto) , Basophils (%) (Auto) , Differential Total Cells Counted 100, Neutrophils % ( Manual) 95H, Lymphocytes % (Manual) 2L, Monocytes % (Manual) 3, Eosinophils % ( Manual) 0, Basophils % (Manual) 0, Band Neutrophils 0, Platelet Estimate Adequate, Platelet Morphology Normal, Anisocytosis 1+, Prothrombin Time 17.0H, Prothromb Time International Ratio 1.6H, Sodium Level 135L, Potassium Level 4.9 , Chloride Level 103, Carbon Dioxide Level 18L, Anion Gap 14, Blood Urea Nitrogen 64H, Creatinine 1.8H, Estimat Glomerular Filtration Rate 45.1, Glucose Level 154H, Calcium Level 9.2, Total Bilirubin 3.9H, Direct Bilirubin 3.4H, Aspartate Amino Transf (AST/SGOT) 204H, Alanine Aminotransferase (ALT/SGPT) 85H , Alkaline Phosphatase 705H, Total Protein 7.5, Albumin 1.3L, Globulin 6.2, Albumin/Globulin Ratio 0.2L, Alpha Fetoprotein [Pending] Height (Feet): 6 Height (Inches): 2.00 Weight (Pounds): 161 General Appearance: thin EENT: other - icteric Neck: normal alignment Cardiovascular: normal rate, regular rhythm Respiratory/Chest: lungs clear Abdomen: hepatomegaly, other - ascites Edema: moderate edema Neurologic: digital marketing program manager II-XII grossly normal, other - slow to speak Berto Beltran MD Jun 10, 2019 09:26
--- NOTE | 2019-06-10 10:48 | General Progress Note ---
Assessment/Plan Assessment/Plan: PAST MEDICAL HISTORY: 1. Liver cirrhosis. 2. Hepatitis C. 3. Liver cancer, HCC. 4. COPD. 5. Kidney stones. 6. Hypertension. us reviewed>> No CBD dilatation>>> extensive mets poor prognosis repeat labs vit K ?hospic Subjective ROS Limited/Unobtainable: No Allergies: Coded Allergies: No Known Allergies (Verified , 07/16/18) Objective Last 24 Hour Vital Signs Date Time Temp Pulse Resp B/P (MAP) Pulse Ox O2 Delivery O2 Flow Rate FiO2 06/10/19 07:44 76 16 97 Nasal Cannula 2.0 28 06/10/19 07:41 80 17 98 Nasal Cannula 2.0 28 76 15 97 06/10/19 04:00 97.0 80 19 110/74 (86) 97 06/10/19 04:00 80 06/10/19 02:04 Nasal Cannula 2.0 06/10/19 00:00 83 06/10/19 00:00 97.0 83 19 109/73 (85) 98 06/09/19 21:00 Nasal Cannula 2.0 06/09/19 20:00 97.0 82 17 102/71 (81) 98 06/09/19 20:00 80 06/09/19 19:42 84 18 99 Nasal Cannula 2.0 28 82 18 98 06/09/19 19:42 82 18 98 Nasal Cannula 2.0 28 06/09/19 16:41 91 06/09/19 16:04 96.8 82 22 100/68 (79) 96 06/09/19 15:30 83 18 95 Nasal Cannula 2.0 28 06/09/19 15:30 84 18 99 Nasal Cannula 2.0 28 83 18 95 06/09/19 12:00 96.3 86 20 100/63 (75) 98 06/09/19 11:29 86 Intake and Output 06/09/19 06/10/19 19:00 07:00 Intake Total 1050 ml Output Total 300 ml Balance 750 ml Intake IV Total 1050 ml Output Urine Total 300 ml # Voids 1 # Bowel Movements 1 2 Laboratory Tests 06/10/19 05:47: White Blood Count 9.8, Red Blood Count 3.99L, Hemoglobin 11.5L, Hematocrit 35.8L , Mean Corpuscular Volume 90, Mean Corpuscular Hemoglobin 28.9, Mean Corpuscular Hemoglobin Concent 32.2, Red Cell Distribution Width 17.6H, Platelet Count 206, Mean Platelet Volume 8.0, Neutrophils (%) (Auto) , Lymphocytes (%) (Auto) , Monocytes (%) (Auto) , Eosinophils (%) (Auto) , Basophils (%) (Auto) , Differential Total Cells Counted 100, Neutrophils % ( Manual) 95H, Lymphocytes % (Manual) 2L, Monocytes % (Manual) 3, Eosinophils % ( Manual) 0, Basophils % (Manual) 0, Band Neutrophils 0, Platelet Estimate Adequate, Platelet Morphology Normal, Anisocytosis 1+, Prothrombin Time 17.0H, Prothromb Time International Ratio 1.6H, Sodium Level 135L, Potassium Level 4.9 , Chloride Level 103, Carbon Dioxide Level 18L, Anion Gap 14, Blood Urea Nitrogen 64H, Creatinine 1.8H, Estimat Glomerular Filtration Rate 45.1, Glucose Level 154H, Calcium Level 9.2, Total Bilirubin 3.9H, Direct Bilirubin 3.4H, Aspartate Amino Transf (AST/SGOT) 204H, Alanine Aminotransferase (ALT/SGPT) 85H , Alkaline Phosphatase 705H, Total Protein 7.5, Albumin 1.3L, Globulin 6.2, Albumin/Globulin Ratio 0.2L, Alpha Fetoprotein [Pending] Height (Feet): 6 Height (Inches): 2.00 Weight (Pounds): 161 General Appearance: alert EENT: scleral icterus Neck: supple Cardiovascular: normal rate Respiratory/Chest: decreased breath sounds Abdomen: normal bowel sounds, non tender, soft Extremities: non-tender Biju Ritter MD Jun 10, 2019 10:48
[2019-06-10] MEDS ORDERED: Phytonadione 1 MG in D5W 55 ML IVPB ONE (11:00)
[2019-06-10 11:43] VITALS: BP 109/70
--- NOTE | 2019-06-10 12:28 | NUR ---
CASE MANAGEMENT: REVIEW 06/10/19 SI:COPD WITH EXACERBATION . RESP FAILURE WITH HYPOXIA . CIRRHOSIS 96.1 80 18 106/71 96% ON 2L NC NA+ 135 CO2-18 BUN 64 CREAT 1.8 BG 154 T.SOHAM/D.SOHAM 3.9/3.4 AST/ALT 204/85 ALK-PHOS 705 PT/INR 17.0/1.6 IS:IV ZOSYN TID IVF NS @150ML/HR FLOMAX PO QHS ALBUTEROL HHN Q4HR NOVOLOG SQ AC&HS \: 2E TELE UNIT PLAN: TRANSFER TO VT PT [facility] ST VIDEO STUDY US ABD -TRACE ASCITES AND MULTIPLE LIVE MASSES
--- NOTE | 2019-06-10 13:40 | NUR ---
NURSE NOTES: Received patient in bed awake. O2 via nasal cannula in place, hooked and regulated at 2LPM. No SOB or acute distress. IV line on REJ intact and patent, no s/sx of infiltration. Belongings accounted for, signed by spouse. Noted with BLE edema. HOB elevated. Bed locked in lowest position. Call light within reach. Will continue plan of care.
--- NOTE | 2019-06-10 13:42 | NUR ---
P.T Note: P.T evaluation completed and tx initiated. Please refer to P.T evaluation for current functional status. Skilled P.T service is warranted to improve strength and endurance to increase activity tolerance , mobility independence and safety. Recommend home P.T at [place].
[2019-06-10] MEDS ORDERED: HYDROcodone/Acetamin 10/325 tab ORAL PRN (13:45)
[2019-06-10] MEDS ORDERED: NS w/KCl 20mEq 1000ml 1,000 ML IV SCH ×2 (14:00)
[2019-06-10] MEDS: NS w/KCl 20mEq 1000ml 1,000 ML IV SCH ×2 (15:56→21:39)
[2019-06-10 16:00] VITALS: BP 108/72
[2019-06-10] MEDS ORDERED: Lactulose 20gm/30ml UDC ORAL SCH ×2 (18:00)
--- NOTE | 2019-06-10 19:30 | NUR ---
HAND-OFF: Report given to erin.
--- NOTE | 2019-06-10 19:31 | NUR ---
NURSE NOTES: Received pt from JOVI Villalpando. GORDONO x 4, on NC 2L. No SOB or acute distress. IV line on REJ intact and patent, running IVF. Condom cath intact. HOB elevated. Bed locked in lowest position, side rails up, call light within reach. Will continue plan of care.
[2019-06-10 20:00] VITALS: BP 106/71
[2019-06-10] MEDS: Tamsulosin 0.4mg cap ORAL SCH (21:39)
--- NOTE | 2019-06-10 23:02 | NUR ---
NURSE NOTES: Stool for culture and c diff collected and sent to the lab
[2019-06-11] VITALS: BP 115/80
[2019-06-11] MEDS: Albuterol/Ipratropium 3ml neb HHN SCH ×6 (03:35→23:14)
[2019-06-11 04:00] VITALS: BP 108/70
[2019-06-11] MEDS: Solu-MEDROL 40mg Inj IVP SCH ×3 (05:44→20:55)
[2019-06-11] MEDS: Piperacillin/Tazobactam 3.375 GM in NS 110 ML IVPB SCH ×2 (05:44→20:47)
[2019-06-11] MEDS: NS w/KCl 20mEq 1000ml 1,000 ML IV SCH (05:45)
[2019-06-11] MEDS: NovoLOG Insulin Flexpen SUBQ SCH ×2 (05:53→17:33)
--- NOTE | 2019-06-11 06:38 | General Progress Note ---
Assessment/Plan Assessment/Plan: PAST MEDICAL HISTORY: 1. Liver cirrhosis. 2. Hepatitis C. 3. Liver cancer, HCC. 4. COPD. 5. Kidney stones. 6. Hypertension. us reviewed>> No CBD dilatation>>> extensive mets poor prognosis repeat labs vit K given ? hospice dc lactulose given loose stools consider decrease IVF of 150 cc/h>>> defer to nephrology Subjective ROS Limited/Unobtainable: Yes Allergies: Coded Allergies: No Known Allergies (Verified , 07/16/18) Objective Last 24 Hour Vital Signs Date Time Temp Pulse Resp B/P (MAP) Pulse Ox O2 Delivery O2 Flow Rate FiO2 06/11/19 04:00 98.0 87 20 108/70 (83) 95 06/11/19 03:35 88 20 98 Nasal Cannula 2.0 28 86 20 96 06/11/19 00:00 98.4 92 22 115/80 (92) 95 06/10/19 23:17 87 16 99 Nasal Cannula 2.0 28 85 16 98 06/10/19 21:00 Nasal Cannula 2.0 06/10/19 20:00 97.2 90 23 106/71 (83) 96 06/10/19 19:44 88 18 99 Nasal Cannula 2.0 28 86 18 96 06/10/19 19:43 86 18 96 Nasal Cannula 2.0 28 06/10/19 16:00 97.8 91 20 108/72 (84) 98 06/10/19 15:46 77 17 99 Nasal Cannula 2.0 28 70 15 98 06/10/19 11:43 96.7 83 19 109/70 (83) 98 06/10/19 11:10 81 17 99 Nasal Cannula 2.0 28 75 15 99 06/10/19 09:00 Nasal Cannula 2.0 06/10/19 08:00 96.1 80 18 106/71 (83) 96 06/10/19 07:44 76 16 97 Nasal Cannula 2.0 28 06/10/19 07:41 80 17 98 Nasal Cannula 2.0 28 76 15 97 Intake and Output 06/10/19 06/11/19 19:00 07:00 Intake Total 850.0 ml Output Total 300 ml 900 ml Balance 550.0 ml -900 ml Intake Oral 240 ml IV Total 610.0 ml Output Urine Total 300 ml 900 ml # Voids 2 3 # Bowel Movements 2 1 Height (Feet): 6 Height (Inches): 2.00 Weight (Pounds): 161 General Appearance: alert EENT: PERRL/EOMI, scleral icterus Neck: supple Cardiovascular: normal rate Respiratory/Chest: lungs clear, decreased breath sounds Abdomen: soft, hypoactive bowel sounds, tender Extremities: non-tender Biju Ritter MD Jun 11, 2019 06:38
--- NOTE | 2019-06-11 07:41 | NUR ---
NURSE NOTES: Received report from JOVI Dykes. Patient A&Ox4. On nasal cannula. No signs of distress or labored breathing. IV intact, patent, and infusing IV fluids. Bed in lowest position with call light in reach. Will continue with plan of care.
[2019-06-11 08:00] VITALS: BP 128/78
--- NOTE | 2019-06-11 09:44 | General Progress Note ---
Assessment/Plan Problem List: (1) COPD with exacerbation ICD Codes: J44.1 - Chronic obstructive pulmonary disease with (acute) exacerbation SNOMED: 179648657 (2) Hepatocellular carcinoma ICD Codes: C22.0 - Liver cell carcinoma SNOMED: 721083171 (3) Dehydration ICD Codes: E86.0 - Dehydration SNOMED: 19350372 (4) HTN (hypertension) ICD Codes: I10 - Essential (primary) hypertension SNOMED: 50467413 Status: unchanged Status Narrative 1. Liver cirrhosis. 2. Hepatitis C. 3. Liver cancer, HCC. 4. COPD. with exacerbation 5. Kidney stones. 6. Hypertension. 7. Dehydration Assessment/Plan: COVERAGE FOR DR STELLA GOULD Change IV fluid Add protonix Monitor renal parameters Taper steroids as possible per orders Subjective Date patient seen: Jun 11, 2019 Time patient seen: 09:00 Constitutional: Reports: malaise, weakness Respiratory: Reports: other - on O2 Allergies: Coded Allergies: No Known Allergies (Verified , 07/16/18) Objective Last 24 Hour Vital Signs Date Time Temp Pulse Resp B/P (MAP) Pulse Ox O2 Delivery O2 Flow Rate FiO2 06/11/19 07:49 84 20 99 Nasal Cannula 2.0 28 85 20 97 06/11/19 07:47 85 20 97 Nasal Cannula 2.0 28 06/11/19 04:00 98.0 87 20 108/70 (83) 95 06/11/19 03:35 88 20 98 Nasal Cannula 2.0 28 86 20 96 06/11/19 00:00 98.4 92 22 115/80 (92) 95 06/10/19 23:17 87 16 99 Nasal Cannula 2.0 28 85 16 98 06/10/19 21:00 Nasal Cannula 2.0 06/10/19 20:00 97.2 90 23 106/71 (83) 96 06/10/19 19:44 88 18 99 Nasal Cannula 2.0 28 86 18 96 06/10/19 19:43 86 18 96 Nasal Cannula 2.0 28 06/10/19 16:00 97.8 91 20 108/72 (84) 98 06/10/19 15:46 77 17 99 Nasal Cannula 2.0 28 70 15 98 06/10/19 11:43 96.7 83 19 109/70 (83) 98 06/10/19 11:10 81 17 99 Nasal Cannula 2.0 28 75 15 99 Intake and Output 06/10/19 06/11/19 19:00 07:00 Intake Total 850.0 ml Output Total 300 ml 900 ml Balance 550.0 ml -900 ml Intake Oral 240 ml IV Total 610.0 ml Output Urine Total 300 ml 900 ml # Voids 2 3 # Bowel Movements 2 1 Height (Feet): 6 Height (Inches): 2.00 Weight (Pounds): 161 General Appearance: no apparent distress, other - weak Neck: limited range of motion Cardiovascular: tachycardia Respiratory/Chest: decreased breath sounds Abdomen: distended, other - firm Blas Covington MD Jun 11, 2019 09:44
[2019-06-11] MEDS ORDERED: Metoclopramide 10mg/2ml Inj IVP PRN (10:00)
[2019-06-11] MEDS: D5NS 1,000 ML IV SCH ×2 (10:33→20:48)
[2019-06-11 10:35] LABS: HEMATOCRIT 39.5 % (42.0-52.0); HEMOGLOBIN 12.5 G/DL (14.2-18.0); MEAN CORPUSCULAR VOLUME 92 FL (80-99); PLATELET COUNT 183 K/UL (150-450); RED BLOOD COUNT 4.28 M/UL (4.70-6.10); RED CELL DISTRIBUTION WIDTH 18.6 % (11.6-14.8); WHITE BLOOD COUNT 9.6 K/UL (4.8-10.8)
[2019-06-11 10:36] LABS: INR 1.5 (0.9-1.1)
[2019-06-11 10:46] LABS: ALANINE AMINOTRANSFERASE 109 U/L (12-78); ALBUMIN 1.3 G/DL (3.4-5.0); ALBUMIN/GLOBULIN RATIO 0.2 (1.0-2.7); ALKALINE PHOSPHATASE 801 U/L (46-116); ANION GAP 14 mmol/L (5-15); ASPARTATE AMINO TRANSFERASE 286 U/L (15-37); BILIRUBIN,TOTAL 3.7 MG/DL (0.2-1.0); BLOOD UREA NITROGEN 65 mg/dL (7-18); CALCIUM 8.7 MG/DL (8.5-10.1); CARBON DIOXIDE 16 MMOL/L (21-32); CHLORIDE 108 MMOL/L (98-107); CREATININE 1.6 MG/DL (0.55-1.30); POTASSIUM 5.4 MMOL/L (3.5-5.1); SODIUM 137 MMOL/L (136-145)
[2019-06-11 10:47] LABS: BILIRUBIN,DIRECT 3.4 MG/DL (0.0-0.3)
[2019-06-11 12:00] VITALS: BP 114/80
[2019-06-11] MEDS: Docusate 100mg cap ORAL SCH ×2 (13:00→17:35)
[2019-06-11 16:00] VITALS: BP 122/83
--- NOTE | 2019-06-11 16:58 | NUR ---
P.T. NOTES S/P: APPROACHED PATIENT'S ROOM IN THE PM. PATIENT FOUND LYING IN A SEMI-CASTANEDA'S POSITION IN BED UPON ARRIVAL. PATIENT DECLINED P.T. TX. TODAY. SECONDARY TO INCREASE BACK PAIN. RN AWARE OF PATIENT'S STATUS. WILL F/U NEXT TX. TIME. RSABADO.
--- NOTE | 2019-06-11 19:24 | NUR ---
HAND-OFF: Report given to JOVI Dykes.
--- NOTE | 2019-06-11 19:25 | NUR ---
NURSE NOTES: Received pt from JOVI Monson. AAO x 4, on NC 2L. IV line on REJ intact and patent, running IVF. Condom cath intact. HOB elevated. Sputum uncollected. Bed locked in lowest position, side rails up, call light within reach. Will continue plan of care.
[2019-06-11 20:00] VITALS: BP 118/79
[2019-06-11] MEDS: Tamsulosin 0.4mg cap ORAL SCH (20:49)
[2019-06-11] MEDS: Pantoprazole Inj IVP SCH (20:57)
[2019-06-12] VITALS: BP 142/97
[2019-06-12] MEDS: Albuterol/Ipratropium 3ml neb HHN SCH ×6 (03:22→23:00)
[2019-06-12 04:00] VITALS: BP 117/77
[2019-06-12] MEDS: Solu-MEDROL 40mg Inj IVP SCH ×3 (05:35→21:14)
[2019-06-12] MEDS: D5NS 1,000 ML IV SCH ×2 (05:35→17:14)
[2019-06-12] MEDS: NovoLOG Insulin Flexpen SUBQ SCH ×2 (05:44→17:11)
--- NOTE | 2019-06-12 06:01 | General Progress Note ---
Assessment/Plan Status: unchanged Assessment/Plan: PAST MEDICAL HISTORY: 1. Liver cirrhosis. 2. Hepatitis C. 3. Liver cancer, HCC. 4. COPD. 5. Kidney stones. 6. Hypertension. us reviewed>> No CBD dilatation>>> extensive mets poor prognosis repeat labs vit K given ? hospice off lactulose given loose stools consider decrease IVF of 100 cc/h>>> defer to nephrology Subjective ROS Limited/Unobtainable: Yes Allergies: Coded Allergies: No Known Allergies (Verified , 07/16/18) Objective Last 24 Hour Vital Signs Date Time Temp Pulse Resp B/P (MAP) Pulse Ox O2 Delivery O2 Flow Rate FiO2 06/12/19 04:00 96.4 96 24 117/77 (90) 99 06/12/19 03:24 99 18 98 Nasal Cannula 2.0 28 97 18 96 06/12/19 00:00 97.8 99 23 142/97 (112) 99 06/11/19 23:15 95 20 99 Nasal Cannula 2.0 28 93 20 97 06/11/19 20:00 98.0 104 23 118/79 (92) 100 06/11/19 19:27 Nasal Cannula 2.0 06/11/19 19:20 99 18 99 Nasal Cannula 2.0 28 97 18 97 06/11/19 19:19 97 18 95 Nasal Cannula 2.0 28 06/11/19 16:00 97.6 98 22 122/83 (96) 99 06/11/19 14:59 92 20 99 Nasal Cannula 2.0 28 94 20 99 06/11/19 12:00 98.0 92 20 114/80 (91) 99 06/11/19 11:20 81 20 99 Nasal Cannula 2.0 28 82 20 98 06/11/19 09:00 Nasal Cannula 2.0 06/11/19 08:00 97.6 85 20 128/78 (95) 97 06/11/19 07:49 84 20 99 Nasal Cannula 2.0 28 85 20 97 06/11/19 07:47 85 20 97 Nasal Cannula 2.0 28 Intake and Output 06/11/19 06/12/19 19:00 07:00 Intake Total 960 ml Output Total 600 ml Balance 360 ml Intake Oral 960 ml Output Urine Total 600 ml # Bowel Movements 1 Laboratory Tests 06/11/19 09:15: White Blood Count 9.6, Red Blood Count 4.28L, Hemoglobin 12.5L, Hematocrit 39.5L , Mean Corpuscular Volume 92, Mean Corpuscular Hemoglobin 29.2, Mean Corpuscular Hemoglobin Concent 31.7L, Red Cell Distribution Width 18.6H, Platelet Count 183, Mean Platelet Volume 7.9, Neutrophils (%) (Auto) , Lymphocytes (%) (Auto) , Monocytes (%) (Auto) , Eosinophils (%) (Auto) , Basophils (%) (Auto) , Differential Total Cells Counted 100, Neutrophils % ( Manual) 91H, Lymphocytes % (Manual) 7L, Monocytes % (Manual) 2, Eosinophils % ( Manual) 0, Basophils % (Manual) 0, Band Neutrophils 0, Platelet Estimate Adequate, Platelet Morphology Normal, Hypochromasia 1+, Anisocytosis 1+, Prothrombin Time 16.0H, Prothromb Time International Ratio 1.5H, Sodium Level 137, Potassium Level 5.4H, Chloride Level 108H, Carbon Dioxide Level 16L, Anion Gap 14, Blood Urea Nitrogen 65H, Creatinine 1.6H, Estimat Glomerular Filtration Rate 51.6, Glucose Level 217H, Calcium Level 8.7, Total Bilirubin 3.7H, Direct Bilirubin 3.4H, Aspartate Amino Transf (AST/SGOT) 286H, Alanine Aminotransferase (ALT/SGPT) 109H, Alkaline Phosphatase 801H, Ammonia < 10L, Total Protein 7.1, Albumin 1.3L, Globulin 5.8, Albumin/Globulin Ratio 0.2L Height (Feet): 6 Height (Inches): 2.00 Weight (Pounds): 161 General Appearance: alert EENT: scleral icterus Neck: supple Cardiovascular: normal rate Respiratory/Chest: decreased breath sounds Abdomen: normal bowel sounds, non tender, soft Extremities: non-tender Biju Ritter MD Jun 12, 2019 06:01
--- NOTE | 2019-06-12 07:11 | NUR ---
HAND-OFF: Report given to JOVI Monson.
--- NOTE | 2019-06-12 07:35 | NUR ---
NURSE NOTES: Received report from JOVI Dykes. Patient in bed sleeping. On nasal cannula. No signs of distress or labored breathing. IV intact, patent, and infusing IV fluids. Bed in lowest position with call light in reach. Will continue with plan of care.
[2019-06-12 08:00] VITALS: BP 120/80
[2019-06-12 08:05] LABS: HEMATOCRIT 38.2 % (42.0-52.0); HEMOGLOBIN 12.3 G/DL (14.2-18.0); MEAN CORPUSCULAR VOLUME 91 FL (80-99); PLATELET COUNT 187 K/UL (150-450); RED BLOOD COUNT 4.19 M/UL (4.70-6.10); WHITE BLOOD COUNT 16.4 K/UL (4.8-10.8)
[2019-06-12 08:12] LABS: AMMONIA < 10 umol/L (11-32)
[2019-06-12 08:21] LABS: ALANINE AMINOTRANSFERASE 200 U/L (12-78); ALBUMIN 1.5 G/DL (3.4-5.0); ALBUMIN/GLOBULIN RATIO 0.3 (1.0-2.7); ALKALINE PHOSPHATASE 831 U/L (46-116); ANION GAP 11 mmol/L (5-15); ASPARTATE AMINO TRANSFERASE 647 U/L (15-37); BILIRUBIN,TOTAL 3.3 MG/DL (0.2-1.0); BLOOD UREA NITROGEN 57 mg/dL (7-18); CALCIUM 8.5 MG/DL (8.5-10.1); CARBON DIOXIDE 18 MMOL/L (21-32); CHLORIDE 109 MMOL/L (98-107); CHOLESTEROL 151 MG/DL (< 200); CREATININE 1.2 MG/DL (0.55-1.30); HDL CHOLESTEROL 11 MG/DL (40-60); POTASSIUM 5.2 MMOL/L (3.5-5.1); SODIUM 137 MMOL/L (136-145); TRIGLYCERIDES 89 MG/DL (30-150)
[2019-06-12 08:23] LABS: GAMMA GLUTAMYL TRANSPEPTIDASE 653 U/L (5-85); PHOSPHORUS 2.8 MG/DL (2.5-4.9)
[2019-06-12] MEDS: Docusate 100mg cap ORAL SCH ×3 (09:00→17:14)
[2019-06-12] MEDS: Pantoprazole Inj IVP SCH ×3 (09:00→21:14)
[2019-06-12] MEDS: Piperacillin/Tazobactam 3.375 GM in NS 110 ML IVPB SCH ×2 (09:17→21:14)
[2019-06-12] MEDS ORDERED: Sodium Polystyrene Sulfonate 15gm Powder ORAL SCH (10:00)
--- NOTE | 2019-06-12 10:15 | NUR ---
NURSE NOTES: Notified Dr. Covington (covering physician for Dr. Beltran) that patient has no DVT prophylaxis. MD will review. Charge nurse aware.
--- NOTE | 2019-06-12 10:20 | NUR ---
NURSE NOTES: Dr. Covington also aware of 16.4 WBCs and 5.2 Potassium. Orders received in [facility] for correcting Potassium, 30g of Kayexalate.
--- NOTE | 2019-06-12 11:03 | General Progress Note ---
Assessment/Plan Problem List: (1) COPD with exacerbation ICD Codes: J44.1 - Chronic obstructive pulmonary disease with (acute) exacerbation SNOMED: 541610602 (2) Hepatocellular carcinoma ICD Codes: C22.0 - Liver cell carcinoma SNOMED: 506474722 (3) Dehydration ICD Codes: E86.0 - Dehydration SNOMED: 77427912 (4) HTN (hypertension) ICD Codes: I10 - Essential (primary) hypertension SNOMED: 25020518 Status: stable, unchanged Assessment/Plan: COVERAGE FOR DR STELLA Beltran will resume care 06/13 Po Kayexelate SQ Heparin Change IV fluid IV protonix Monitor renal parameters Taper steroids as possible- High WBCs due to steroids per orders Subjective ROS Limited/Unobtainable: No Constitutional: Reports: malaise, other - arousable Allergies: Coded Allergies: No Known Allergies (Verified , 07/16/18) Objective Last 24 Hour Vital Signs Date Time Temp Pulse Resp B/P (MAP) Pulse Ox O2 Delivery O2 Flow Rate FiO2 06/12/19 08:10 108 22 99 Nasal Cannula 2.0 28 106 22 99 06/12/19 08:10 107 20 99 Nasal Cannula 2.0 28 06/12/19 04:00 96.4 96 24 117/77 (90) 99 06/12/19 03:24 99 18 98 Nasal Cannula 2.0 28 97 18 96 06/12/19 00:00 97.8 99 23 142/97 (112) 99 06/11/19 23:15 95 20 99 Nasal Cannula 2.0 28 93 20 97 06/11/19 20:00 98.0 104 23 118/79 (92) 100 06/11/19 19:27 Nasal Cannula 2.0 06/11/19 19:20 99 18 99 Nasal Cannula 2.0 28 97 18 97 06/11/19 19:19 97 18 95 Nasal Cannula 2.0 28 06/11/19 16:00 97.6 98 22 122/83 (96) 99 06/11/19 14:59 92 20 99 Nasal Cannula 2.0 28 94 20 99 06/11/19 12:00 98.0 92 20 114/80 (91) 99 06/11/19 11:20 81 20 99 Nasal Cannula 2.0 28 82 20 98 Intake and Output 06/11/19 06/12/19 19:00 07:00 Intake Total 960 ml Output Total 600 ml 850 ml Balance 360 ml -850 ml Intake Oral 960 ml Output Urine Total 600 ml 850 ml # Bowel Movements 1 1 Laboratory Tests 06/12/19 07:25: White Blood Count 16.4#H, Red Blood Count 4.19L, Hemoglobin 12.3L, Hematocrit 38.2L, Mean Corpuscular Volume 91, Mean Corpuscular Hemoglobin 29.4, Mean Corpuscular Hemoglobin Concent 32.2, Red Cell Distribution Width 18.0H, Platelet Count 187, Mean Platelet Volume 8.1, Neutrophils (%) (Auto) , Lymphocytes (%) (Auto) , Monocytes (%) (Auto) , Eosinophils (%) (Auto) , Basophils (%) (Auto) , Neutrophils % (Manual) [Pending], Lymphocytes % (Manual) [Pending], Platelet Estimate [Pending], Platelet Morphology [Pending], Sodium Level 137, Potassium Level 5.2H, Chloride Level 109H, Carbon Dioxide Level 18L, Anion Gap 11, Blood Urea Nitrogen 57H, Creatinine 1.2, Estimat Glomerular Filtration Rate > 60, Glucose Level 265H, Hemoglobin A1c 5.7, Uric Acid 7.0, Calcium Level 8.5, Phosphorus Level 2.8, Magnesium Level 1.7L, Total Bilirubin 3.3H, Direct Bilirubin 3.0H, Gamma Glutamyl Transpeptidase 653H, Aspartate Amino Transf (AST/SGOT) 647H, Alanine Aminotransferase (ALT/SGPT) 200H, Alkaline Phosphatase 831H, Ammonia < 10L, C-Reactive Protein, Quantitative 6.4H , Pro-B-Type Natriuretic Peptide 513H, Total Protein 7.2, Albumin 1.5L, Globulin 5.7, Albumin/Globulin Ratio 0.3L, Triglycerides Level 89, Cholesterol Level 151, LDL Cholesterol 122H, HDL Cholesterol 11L, Cholesterol/HDL Ratio 13.7H, Lipase 247, Thyroid Stimulating Hormone (TSH) 2.710 Height (Feet): 6 Height (Inches): 2.00 Weight (Pounds): 161 General Appearance: no apparent distress Cardiovascular: tachycardia Respiratory/Chest: decreased breath sounds Abdomen: distended Blas Covington MD Jun 12, 2019 11:03
[2019-06-12 12:00] VITALS: BP 123/23
[2019-06-12] MEDS ORDERED: D5 1/2NS 1000ml IV ONE (13:46)
[2019-06-12 16:00] VITALS: BP 125/77
--- NOTE | 2019-06-12 19:20 | NUR ---
HAND-OFF: Report given to JOVI Moncada.
--- NOTE | 2019-06-12 19:30 | NUR ---
NURSE NOTES: Received patient in bed. A/O x4. On NC running at 2 liters. Patient denies pain at this time. IV in the Right EJ patent and running IVF as ordered. Condom catheter in place. Bed at the lowest position, laying at high-fowlers. Call light within reach.
[2019-06-12 20:00] VITALS: BP 127/83
[2019-06-12] MEDS: Tamsulosin 0.4mg cap ORAL SCH (21:14)
[2019-06-12] MEDS: Heparin 5000 units/ml inj SUBQ SCH (21:19)
[2019-06-13] VITALS: BP 127/72
[2019-06-13] MEDS: Albuterol/Ipratropium 3ml neb HHN SCH ×6 (02:10→20:10)
[2019-06-13] MEDS: D5NS 1,000 ML IV SCH ×2 (02:26→12:17)
[2019-06-13 04:00] VITALS: BP 137/90
[2019-06-13] MEDS: Solu-MEDROL 40mg Inj IVP SCH ×2 (05:39→14:07)
[2019-06-13] MEDS: NovoLOG Insulin Flexpen SUBQ SCH ×2 (05:57→17:25)
--- NOTE | 2019-06-13 07:15 | NUR ---
HAND-OFF: Report given to Fanny ESPANA.
--- NOTE | 2019-06-13 07:25 | NUR ---
NURSE NOTES: Received patient in bed.patient awake. alert, oriented x4,no sign of distress. On O2 at 2 LPM via NC, denies pain at this time. IV in the Right EJ patent and running IVF as ordered. Condom catheter in place. On fall and aspiration precaution,Bed at the lowest position, on high-fowlers position Call light within reach. gonsalo kaur
[2019-06-13 07:54] LABS: HEMATOCRIT 36.6 % (42.0-52.0); HEMOGLOBIN 12.2 G/DL (14.2-18.0); MEAN CORPUSCULAR VOLUME 89 FL (80-99); PLATELET COUNT 166 K/UL (150-450); RED BLOOD COUNT 4.09 M/UL (4.70-6.10); RED CELL DISTRIBUTION WIDTH 18.4 % (11.6-14.8); WHITE BLOOD COUNT 14.4 K/UL (4.8-10.8)
[2019-06-13 08:00] VITALS: BP 144/98
[2019-06-13 08:42] LABS: ALANINE AMINOTRANSFERASE 266 U/L (12-78); ALBUMIN 1.4 G/DL (3.4-5.0); ALBUMIN/GLOBULIN RATIO 0.3 (1.0-2.7); ALKALINE PHOSPHATASE 762 U/L (46-116); ANION GAP 11 mmol/L (5-15); ASPARTATE AMINO TRANSFERASE 887 U/L (15-37); BILIRUBIN,TOTAL 3.4 MG/DL (0.2-1.0); BLOOD UREA NITROGEN 40 mg/dL (7-18); CARBON DIOXIDE 18 MMOL/L (21-32); CHLORIDE 109 MMOL/L (98-107); CREATININE 1.1 MG/DL (0.55-1.30); POTASSIUM 4.9 MMOL/L (3.5-5.1); SODIUM 138 MMOL/L (136-145)
[2019-06-13 08:46] LABS: BILIRUBIN,DIRECT 3.1 MG/DL (0.0-0.3)
[2019-06-13] MEDS: Piperacillin/Tazobactam 3.375 GM in NS 110 ML IVPB SCH ×2 (09:00→21:14)
[2019-06-13] MEDS: Pantoprazole Inj IVP SCH ×2 (09:02→21:14)
[2019-06-13] MEDS: Docusate 100mg cap ORAL SCH ×3 (09:02→17:24)
[2019-06-13] MEDS: Heparin 5000 units/ml inj SUBQ SCH ×2 (09:08→21:15)
--- NOTE | 2019-06-13 09:42 | General Progress Note ---
Assessment/Plan Status: stable, unchanged Assessment/Plan: PAST MEDICAL HISTORY: 1. Liver cirrhosis. 2. Hepatitis C. 3. Liver cancer, HCC. 4. COPD. 5. Kidney stones. 6. Hypertension. us reviewed>> No CBD dilatation>>> extensive mets poor prognosis repeat labs ? hospice off lactulose given loose stools consider decrease >>> defer to nephrology Subjective ROS Limited/Unobtainable: Yes Allergies: Coded Allergies: No Known Allergies (Verified , 07/16/18) Objective Last 24 Hour Vital Signs Date Time Temp Pulse Resp B/P (MAP) Pulse Ox O2 Delivery O2 Flow Rate FiO2 06/13/19 09:00 Nasal Cannula 3.0 06/13/19 08:00 98.0 72 19 144/98 (113) 97 06/13/19 04:00 97.2 90 22 137/90 (106) 99 06/13/19 02:20 88 20 99 Nasal Cannula 4.0 36 86 18 98 06/13/19 00:00 97.3 91 22 127/72 (90) 100 06/12/19 21:00 Nasal Cannula 3.0 06/12/19 20:00 97.2 88 20 127/83 (98) 100 06/12/19 19:53 75 20 99 Nasal Cannula 4.0 36 72 20 99 06/12/19 19:53 72 18 99 Nasal Cannula 4.0 36 06/12/19 16:00 96.4 93 19 125/77 (93) 98 06/12/19 12:00 96.6 92 20 123/23 (56) 97 06/12/19 11:24 94 22 99 Nasal Cannula 2.0 28 91 22 97 Intake and Output 06/12/19 06/13/19 19:00 07:00 Intake Total 460 ml 710.0 ml Output Total 1000 ml 600 ml Balance -540 ml 110.0 ml Intake Oral 360 ml IV Total 100 ml 710.0 ml Output Urine Total 1000 ml 600 ml Laboratory Tests 06/13/19 06:05: White Blood Count 14.4H, Red Blood Count 4.09L, Hemoglobin 12.2L, Hematocrit 36.6L, Mean Corpuscular Volume 89, Mean Corpuscular Hemoglobin 29.8, Mean Corpuscular Hemoglobin Concent 33.3, Red Cell Distribution Width 18.4H, Platelet Count 166, Mean Platelet Volume 8.7, Neutrophils (%) (Auto) , Lymphocytes (%) (Auto) , Monocytes (%) (Auto) , Eosinophils (%) (Auto) , Basophils (%) (Auto) , Neutrophils % (Manual) [Pending], Lymphocytes % (Manual) [Pending], Platelet Estimate [Pending], Platelet Morphology [Pending], Sodium Level 138, Potassium Level 4.9, Chloride Level 109H, Carbon Dioxide Level 18L, Anion Gap 11, Blood Urea Nitrogen 40H, Creatinine 1.1, Estimat Glomerular Filtration Rate > 60, Glucose Level 239H, Calcium Level 8.0L, Total Bilirubin 3.4H, Direct Bilirubin 3.1H, Aspartate Amino Transf (AST/SGOT) 887H, Alanine Aminotransferase (ALT/SGPT) 266H, Alkaline Phosphatase 762H, Total Protein 6.6, Albumin 1.4L, Globulin 5.2, Albumin/Globulin Ratio 0.3L Height (Feet): 6 Height (Inches): 2.00 Weight (Pounds): 161 General Appearance: alert EENT: normal ENT inspection, scleral icterus Neck: supple Cardiovascular: normal rate Respiratory/Chest: decreased breath sounds Abdomen: normal bowel sounds, non tender, soft Extremities: non-tender Biju Ritter MD Jun 13, 2019 09:41
[2019-06-13 11:59] VITALS: BP 128/85
[2019-06-13 16:11] VITALS: BP 131/83
--- NOTE | 2019-06-13 16:39 | NUR ---
nurse notes condom cath dcd as ordered, urinal provided, placed at bedside, instructed to call once patient void, needs post void urine, per patient un able to walk, PT consult ordered gonsalo kaur
--- NOTE | 2019-06-13 19:48 | NUR ---
HAND-OFF: Report given to Ms Benji RN resting comfortably in bed,IVF patent and infusing well, needs met and anticipated will continue JOVI Ford.
[2019-06-13 20:00] VITALS: BP 116/80
--- NOTE | 2019-06-13 20:04 | NUR ---
NURSE NOTES: Received pt from JOVI Villar. AAO x 4, on NC 3L. IV line on REJ intact and patent, running IVF. Provided urinal and will perform bladder scan for PRV. HOB elevated. Sputum uncollected. Fall precaution maintained. Bed locked in lowest position, side rails up, call light within reach. Will continue plan of care.
--- NOTE | 2019-06-13 20:24 | General Progress Note ---
Assessment/Plan Problem List: (1) Dehydration ICD Codes: E86.0 - Dehydration SNOMED: 54234659 (2) Hepatic encephalopathy ICD Codes: K72.90 - Hepatic failure, unspecified without coma SNOMED: 19263817 (3) Hepatocellular carcinoma ICD Codes: C22.0 - Liver cell carcinoma SNOMED: 538360484 (4) Cirrhosis ICD Codes: K74.60 - Unspecified cirrhosis of liver SNOMED: 40860900 Qualifiers: Qualified Codes: K74.60 - Unspecified cirrhosis of liver (5) COPD with exacerbation ICD Codes: J44.1 - Chronic obstructive pulmonary disease with (acute) exacerbation SNOMED: 461544574 Status: stable, unchanged Assessment/Plan: dc iv, hhn, taper steroids considering hospice Subjective Constitutional: Reports: weakness HEENT: Reports: no symptoms Cardiovascular: Reports: no symptoms Respiratory: Reports: cough, shortness of breath Gastrointestinal/Abdominal: Reports: abdomen distended, diarrhea Genitourinary: Reports: no symptoms, other - difficulty void Neurologic/Psychiatric: Reports: weakness Endocrine: Reports: no symptoms Hematologic/Lymphatic: Reports: no symptoms Allergies: Coded Allergies: No Known Allergies (Verified , 07/16/18) Objective Last 24 Hour Vital Signs Date Time Temp Pulse Resp B/P (MAP) Pulse Ox O2 Delivery O2 Flow Rate FiO2 06/13/19 16:11 98.8 69 17 131/83 (99) 99 06/13/19 14:14 80 20 98 Nasal Cannula 4.0 36 78 20 96 06/13/19 11:59 98.1 79 17 128/85 (99) 97 06/13/19 10:06 79 18 98 Nasal Cannula 4.0 36 80 20 98 06/13/19 10:06 80 20 98 Nasal Cannula 4.0 36 06/13/19 09:00 Nasal Cannula 3.0 06/13/19 08:00 98.0 72 19 144/98 (113) 97 06/13/19 04:00 97.2 90 22 137/90 (106) 99 06/13/19 02:20 88 20 99 Nasal Cannula 4.0 36 86 18 98 06/13/19 00:00 97.3 91 22 127/72 (90) 100 06/12/19 21:00 Nasal Cannula 3.0 Intake and Output 06/12/19 06/13/19 19:00 07:00 Intake Total 460 ml 710.0 ml Output Total 1000 ml 600 ml Balance -540 ml 110.0 ml Intake Oral 360 ml IV Total 100 ml 710.0 ml Output Urine Total 1000 ml 600 ml Laboratory Tests 06/13/19 06:05: White Blood Count 14.4H, Red Blood Count 4.09L, Hemoglobin 12.2L, Hematocrit 36.6L, Mean Corpuscular Volume 89, Mean Corpuscular Hemoglobin 29.8, Mean Corpuscular Hemoglobin Concent 33.3, Red Cell Distribution Width 18.4H, Platelet Count 166, Mean Platelet Volume 8.7, Neutrophils (%) (Auto) , Lymphocytes (%) (Auto) , Monocytes (%) (Auto) , Eosinophils (%) (Auto) , Basophils (%) (Auto) , Differential Total Cells Counted 100, Neutrophils % ( Manual) 89H, Lymphocytes % (Manual) 5L, Monocytes % (Manual) 6, Eosinophils % ( Manual) 0, Basophils % (Manual) 0, Band Neutrophils 0, Platelet Estimate Adequate, Platelet Morphology Normal, Anisocytosis 2+, Sodium Level 138, Potassium Level 4.9, Chloride Level 109H, Carbon Dioxide Level 18L, Anion Gap 11 , Blood Urea Nitrogen 40H, Creatinine 1.1, Estimat Glomerular Filtration Rate > 60, Glucose Level 239H, Calcium Level 8.0L, Total Bilirubin 3.4H, Direct Bilirubin 3.1H, Aspartate Amino Transf (AST/SGOT) 887H, Alanine Aminotransferase (ALT/SGPT) 266H, Alkaline Phosphatase 762H, Total Protein 6.6, Albumin 1.4L, Globulin 5.2, Albumin/Globulin Ratio 0.3L Height (Feet): 6 Height (Inches): 2.00 Weight (Pounds): 161 General Appearance: no apparent distress EENT: normal ENT inspection Neck: normal alignment Cardiovascular: regular rhythm Respiratory/Chest: lungs clear Abdomen: distended Edema: mild edema Neurologic: supervisor cloth winding II-XII grossly normal Berto Beltran MD Jun 13, 2019 20:24
[2019-06-13] MEDS: Tamsulosin 0.4mg cap ORAL SCH (21:14)
--- NOTE | 2019-06-13 21:41 | NUR ---
NURSE NOTES: Noted post void residual 154cc by bladder scan
[2019-06-14] VITALS: BP 120/75
[2019-06-14] MEDS: Albuterol/Ipratropium 3ml neb HHN SCH ×4 (00:06→11:20)
--- NOTE | 2019-06-14 01:09 | NUR ---
NURSE NOTES: Voided 200cc. PVR is 135cc by bladder scan.
[2019-06-14 04:00] VITALS: BP 121/76
[2019-06-14] MEDS: NovoLOG Insulin Flexpen SUBQ SCH (05:54)
--- NOTE | 2019-06-14 07:13 | NUR ---
HAND-OFF: Report given to JOVI Villar.
--- NOTE | 2019-06-14 07:13 | NUR ---
NURSE NOTES: PVR 0cc noted by bladder scan.
--- NOTE | 2019-06-14 07:20 | NUR ---
NURSE NOTES: Received patient in bed.patient awake. alert, oriented x4,no sign of distress. On O2 at 3 LPM via NC, denies pain at this time.HL Right EJ patent and On fall and aspiration precaution,Bed at the lowest position, Call light within reach.will continue to monitor gonsalo kaur
[2019-06-14 08:02] VITALS: BP 114/82
[2019-06-14] MEDS: Piperacillin/Tazobactam 3.375 GM in NS 110 ML IVPB SCH (08:31)
[2019-06-14] MEDS: Pantoprazole Inj IVP SCH ×2 (08:31→20:40)
[2019-06-14] MEDS: Heparin 5000 units/ml inj SUBQ SCH ×2 (08:37→21:01)
[2019-06-14 09:54] LABS: HEMATOCRIT 40.4 % (42.0-52.0); HEMOGLOBIN 13.2 G/DL (14.2-18.0); MEAN CORPUSCULAR VOLUME 90 FL (80-99); PLATELET COUNT 186 K/UL (150-450); RED CELL DISTRIBUTION WIDTH 20.1 % (11.6-14.8); WHITE BLOOD COUNT 17.4 K/UL (4.8-10.8)
[2019-06-14 09:59] LABS: ALANINE AMINOTRANSFERASE 240 U/L (12-78); ALBUMIN 1.3 G/DL (3.4-5.0); ALBUMIN/GLOBULIN RATIO 0.2 (1.0-2.7); ALKALINE PHOSPHATASE 802 U/L (46-116); ANION GAP 13 mmol/L (5-15); ASPARTATE AMINO TRANSFERASE 526 U/L (15-37); BILIRUBIN,TOTAL 4.8 MG/DL (0.2-1.0); BLOOD UREA NITROGEN 39 mg/dL (7-18); CALCIUM 8.3 MG/DL (8.5-10.1); CARBON DIOXIDE 20 MMOL/L (21-32); CHLORIDE 108 MMOL/L (98-107); CREATININE 1.1 MG/DL (0.55-1.30); PHOSPHORUS 2.4 MG/DL (2.5-4.9); POTASSIUM 4.9 MMOL/L (3.5-5.1); SODIUM 141 MMOL/L (136-145)
[2019-06-14 10:00] LABS: BILIRUBIN,DIRECT 4.4 MG/DL (0.0-0.3)
--- NOTE | 2019-06-14 10:58 | GI Progress Note ---
Assessment/Plan Problems: (1) Cirrhosis ICD Codes: K74.60 - Unspecified cirrhosis of liver SNOMED: 55558937 Qualifiers: Qualified Codes: K74.60 - Unspecified cirrhosis of liver (2) Hepatic encephalopathy ICD Codes: K72.90 - Hepatic failure, unspecified without coma SNOMED: 08359696 (3) Constipation ICD Codes: K59.00 - Constipation, unspecified SNOMED: 44258970 (4) Hepatitis C ICD Codes: B19.20 - Unspecified viral hepatitis C without hepatic coma SNOMED: 49859310 (5) Hepatocellular carcinoma ICD Codes: C22.0 - Liver cell carcinoma SNOMED: 040812748 Status: unchanged Status Narrative Discussed with Dr. Ritter. Assessment/Plan 1. Liver cirrhosis. 2. Hepatitis C. 3. Liver cancer, HCC. 4. COPD. 5. Kidney stones. 6. Hypertension. us reviewed>> No CBD dilatation>>> extensive mets poor prognosis repeat labs ? hospice off lactulose given loose stools supportive care The patient was seen and examined at bedside and all new and available data was reviewed in the patients chart. I agree with the above findings, impression and plan. (Patient seen earlier today. Signature stamp does not reflect patient encounter time.). - Biju Ritter MD Subjective Gastrointestinal/Abdominal: Reports: no symptoms Subjective limited Objective Last 24 Hour Vital Signs Date Time Temp Pulse Resp B/P (MAP) Pulse Ox O2 Delivery O2 Flow Rate FiO2 06/14/19 09:17 Nasal Cannula 3.0 06/14/19 08:02 97.2 105 19 114/82 (93) 97 06/14/19 07:38 102 22 97 Nasal Cannula 4.0 36 06/14/19 07:38 103 22 99 Nasal Cannula 4.0 36 102 22 97 06/14/19 04:00 97.4 95 23 121/76 (91) 97 06/14/19 03:34 85 18 99 Nasal Cannula 4.0 36 86 20 99 06/14/19 00:07 83 18 99 Nasal Cannula 4.0 36 84 20 99 06/14/19 00:00 97.4 82 16 120/75 (90) 98 06/13/19 21:00 Nasal Cannula 3.0 06/13/19 20:10 82 20 99 Nasal Cannula 4.0 36 06/13/19 20:10 84 18 99 Nasal Cannula 4.0 36 82 20 99 06/13/19 20:00 97.2 89 18 116/80 (92) 99 06/13/19 16:11 98.8 69 17 131/83 (99) 99 06/13/19 14:14 80 20 98 Nasal Cannula 4.0 36 78 20 96 06/13/19 11:59 98.1 79 17 128/85 (99) 97 Intake and Output 06/13/19 06/14/19 19:00 07:00 Intake Total 1095.0 ml 950 ml Output Total 1000 ml 989 ml Balance 95.0 ml -39 ml IV Total 1095.0 ml Other 950 ml Output Urine Total 1000 ml 700 ml Post Void Residual 289 ml Bladder Scan Volume Amount 151-200 ml 101-150 ml # Bowel Movements 1 Laboratory Tests Test 06/14/19 08:10 White Blood Count 17.4 K/UL (4.8-10.8) H Red Blood Count 4.50 M/UL (4.70-6.10) L Hemoglobin 13.2 G/DL (14.2-18.0) L Hematocrit 40.4 % (42.0-52.0) L Mean Corpuscular Volume 90 FL (80-99) Mean Corpuscular Hemoglobin 29.2 PG (27.0-31.0) Mean Corpuscular Hemoglobin Concent 32.6 G/DL (32.0-36.0) Red Cell Distribution Width 20.1 % (11.6-14.8) H Platelet Count 186 K/UL (150-450) Mean Platelet Volume 9.6 FL (6.5-10.1) Neutrophils (%) (Auto) % (45.0-75.0) Lymphocytes (%) (Auto) % (20.0-45.0) Monocytes (%) (Auto) % (1.0-10.0) Eosinophils (%) (Auto) % (0.0-3.0) Basophils (%) (Auto) % (0.0-2.0) Neutrophils % (Manual) Pending Lymphocytes % (Manual) Pending Platelet Estimate Pending Platelet Morphology Pending Sodium Level 141 MMOL/L (136-145) Potassium Level 4.9 MMOL/L (3.5-5.1) Chloride Level 108 MMOL/L (98-107) H Carbon Dioxide Level 20 MMOL/L (21-32) L Anion Gap 13 mmol/L (5-15) Blood Urea Nitrogen 39 mg/dL (7-18) H Creatinine 1.1 MG/DL (0.55-1.30) Estimat Glomerular Filtration Rate > 60 mL/min (>60) Glucose Level 142 MG/DL (74-106) H Calcium Level 8.3 MG/DL (8.5-10.1) L Phosphorus Level 2.4 MG/DL (2.5-4.9) L Magnesium Level 1.3 MG/DL (1.8-2.4) L Total Bilirubin 4.8 MG/DL (0.2-1.0) H Direct Bilirubin 4.4 MG/DL (0.0-0.3) H Aspartate Amino Transf (AST/SGOT) 526 U/L (15-37) H Alanine Aminotransferase (ALT/SGPT) 240 U/L (12-78) H Alkaline Phosphatase 802 U/L (46-116) H Total Protein 6.8 G/DL (6.4-8.2) Albumin 1.3 G/DL (3.4-5.0) L Globulin 5.5 g/dL Albumin/Globulin Ratio 0.2 (1.0-2.7) L Height (Feet): 6 Height (Inches): 2.00 Weight (Pounds): 161 General Appearance: WD/WN, no apparent distress, alert Cardiovascular: normal rate Respiratory/Chest: normal breath sounds, no respiratory distress Abdominal Exam: normal bowel sounds, non tender, soft Extremities: normal range of motion, non-tender Eleonora Way CLERICAL SPECIALIST Jun 14, 2019 10:58
[2019-06-14 12:05] VITALS: BP 123/79
--- NOTE | 2019-06-14 12:58 | General Progress Note ---
Assessment/Plan Problem List: (1) Dehydration ICD Codes: E86.0 - Dehydration SNOMED: 93416348 (2) Hepatic encephalopathy ICD Codes: K72.90 - Hepatic failure, unspecified without coma SNOMED: 61731093 (3) Hepatocellular carcinoma ICD Codes: C22.0 - Liver cell carcinoma SNOMED: 550079429 (4) Cirrhosis ICD Codes: K74.60 - Unspecified cirrhosis of liver SNOMED: 97916042 Qualifiers: Qualified Codes: K74.60 - Unspecified cirrhosis of liver (5) COPD with exacerbation ICD Codes: J44.1 - Chronic obstructive pulmonary disease with (acute) exacerbation SNOMED: 901132036 Status: unchanged Assessment/Plan: dc iv, hhn, taper steroids considering hospice agrees Subjective Constitutional: Reports: weakness HEENT: Reports: no symptoms Respiratory: Reports: cough, shortness of breath Gastrointestinal/Abdominal: Reports: other - distended Genitourinary: Reports: no symptoms Neurologic/Psychiatric: Reports: no symptoms Endocrine: Reports: no symptoms Allergies: Coded Allergies: No Known Allergies (Verified , 07/16/18) Objective Last 24 Hour Vital Signs Date Time Temp Pulse Resp B/P (MAP) Pulse Ox O2 Delivery O2 Flow Rate FiO2 06/14/19 12:05 97.4 93 17 123/79 (94) 97 06/14/19 11:30 111 20 99 Nasal Cannula 4.0 36 105 20 96 06/14/19 09:17 Nasal Cannula 3.0 06/14/19 08:02 97.2 105 19 114/82 (93) 97 06/14/19 07:38 102 22 97 Nasal Cannula 4.0 36 06/14/19 07:38 103 22 99 Nasal Cannula 4.0 36 102 22 97 06/14/19 04:00 97.4 95 23 121/76 (91) 97 06/14/19 03:34 85 18 99 Nasal Cannula 4.0 36 86 20 99 06/14/19 00:07 83 18 99 Nasal Cannula 4.0 36 84 20 99 06/14/19 00:00 97.4 82 16 120/75 (90) 98 06/13/19 21:00 Nasal Cannula 3.0 06/13/19 20:10 82 20 99 Nasal Cannula 4.0 36 06/13/19 20:10 84 18 99 Nasal Cannula 4.0 36 82 20 99 06/13/19 20:00 97.2 89 18 116/80 (92) 99 06/13/19 16:11 98.8 69 17 131/83 (99) 99 06/13/19 14:14 80 20 98 Nasal Cannula 4.0 36 78 20 96 Intake and Output 06/13/19 06/14/19 19:00 07:00 Intake Total 1095.0 ml 950 ml Output Total 1000 ml 989 ml Balance 95.0 ml -39 ml IV Total 1095.0 ml Other 950 ml Output Urine Total 1000 ml 700 ml Post Void Residual 289 ml Bladder Scan Volume Amount 151-200 ml 101-150 ml # Bowel Movements 1 Laboratory Tests 06/14/19 08:10: White Blood Count 17.4H, Red Blood Count 4.50L, Hemoglobin 13.2L, Hematocrit 40.4L, Mean Corpuscular Volume 90, Mean Corpuscular Hemoglobin 29.2, Mean Corpuscular Hemoglobin Concent 32.6, Red Cell Distribution Width 20.1H, Platelet Count 186, Mean Platelet Volume 9.6, Neutrophils (%) (Auto) , Lymphocytes (%) (Auto) , Monocytes (%) (Auto) , Eosinophils (%) (Auto) , Basophils (%) (Auto) , Neutrophils % (Manual) [Pending], Lymphocytes % (Manual) [Pending], Platelet Estimate [Pending], Platelet Morphology [Pending], Sodium Level 141, Potassium Level 4.9, Chloride Level 108H, Carbon Dioxide Level 20L, Anion Gap 13, Blood Urea Nitrogen 39H, Creatinine 1.1, Estimat Glomerular Filtration Rate > 60, Glucose Level 142H, Calcium Level 8.3L, Phosphorus Level 2.4L, Magnesium Level 1.3L, Total Bilirubin 4.8H, Direct Bilirubin 4.4H, Aspartate Amino Transf (AST/SGOT) 526H, Alanine Aminotransferase (ALT/SGPT) 240H , Alkaline Phosphatase 802H, Total Protein 6.8, Albumin 1.3L, Globulin 5.5, Albumin/Globulin Ratio 0.2L Height (Feet): 6 Height (Inches): 2.00 Weight (Pounds): 161 General Appearance: moderate distress EENT: normal ENT inspection Neck: normal alignment Cardiovascular: regular rhythm Respiratory/Chest: lungs clear, decreased breath sounds, accessory muscle use Abdomen: non tender, distended Edema: mild edema Berto Beltran MD Jun 14, 2019 12:58
--- NOTE | 2019-06-14 13:20 | NUR ---
NURSE NOTES Left message to tel no [phone], PATIENT WILL BE DISCHARGE [facility] HOME WITH HOSPICE JOVI FRIED
--- NOTE | 2019-06-14 13:57 | NUR ---
MANAGER FINANCIAL CONSULT SW received a consult to discuss the end of life. SW met w/ pt and discussed the end of life issue. Pt presents as A&O4x. Pt is and has two adult children. Pt resides w/ his Jenise [address] [facility] [address], [place] [address]. Pt reports he and his met w/ MD and discussed the prognosis. Pt is willing to receive hospice care. Pt states his Jenise will be the decision maker for pt. SW spoke w/ pt's Jenise Quigley. Jenise states that she is aware of the hospice referral and she is willing to accept it. Jenise also states she received a call from hospice agency earlier today and will arrange the service. Jenise did not share further concern/questions. Signed: 06/14/19 at 1401 by AUTUMN BAUER <Co-Signature Required>
--- NOTE | 2019-06-14 14:29 | NUR ---
CASE MANAGEMENT:REVIEW 06/13/2019 SI;CIRRHOSIS. COPD W/EXACERBATION. HEPATOCELLULAR CARCINOMA. HEPATIC ENCEPHALOPATHY. 98.8 80 20 144/98 96% 4L NC FIO2 36% WBC 14.4 CL 109 CO2 18 BUN 40 CA 8.0 T-BILI 3.4 AST 887 ALT 266 ALK PHOS 762 IS;HEPARIN SUBQ Q12 HRS PROTONIX IV Q12 HRS REGLAN IB Q12 HRS DUO NEB HHN Q4 HRT SOLU-MEDROL IV Q8 HRS MED SURG STATUS DCP;FROM HOME
--- NOTE | 2019-06-14 15:06 | NUR ---
RD ASSESSMENT & RECOMMENDATIONS SEE CARE ACTIVITY FOR COMPLETE ASSESSMENT DAILY ESTIMATED NEEDS: Needs based on Cancer, underweight 73.2kg 30-35 kcals/kg 8486-5764 total kcals 1-2 g protein/kg 73-146 g total protein 25-30 mL/kg 7913-6302 total fluid mLs NUTRITION DIAGNOSIS: Increased kcal and pro needs r/t cancer and wasting as evidenced by pt w/ moderate to severe temporal and clavicular wasting, pt is 85% of ideal body weight, w/ liver cancer, w/ poor and variable intake. CURRENT DIET: Regular ms ground PO DIET RECOMMENDATIONS: W/ poor intake rec liberalized Regular diet / texture as tolerated ADDITIONAL RECOMMENDATIONS: 1) Glucerna TID w/ meals 2) Txr pt to bed w/ scale for accurate CBW 3) Rec liberalized regular diet for improved PO acceptance 4) Consider REVENUE AUDIT CLERK eval for appropriate texture
[2019-06-14 16:11] VITALS: BP 112/75
--- NOTE | 2019-06-14 19:25 | NUR ---
HAND-OFF: Report given to Mr Iglesia RN Resting comfortably in bed,on going O2 at 2LPM via NC, needs met and anticipated gonsalo kaur
--- NOTE | 2019-06-14 19:30 | NUR ---
NURSE NOTES: Pt. received from JOVI Villar. Pt. LIO Gould at 3L, no complaints of pain, no respiratory distress at this time. IV access right EJ 18g, asymptomatic, intact, and patent; saline locked. Bed is low and locked, side rails x2 up, bed alarm active, and call light is in reach. Will continue to monitor.
[2019-06-14 20:00] VITALS: BP 126/74
--- NOTE | 2019-06-14 20:22 | NUR ---
BEDSIDE SWALLOW EVALUATION COMPLETED POST CHART REVIEW AND INTERVIEW WITH JOVI ANDRADE. POLST STATUS: DO NOT RESUSCITATE/DO NOT INTUBATE DYSPHAGIA FACTORS FOR THIS 73 YEAR OLD PATIENT: MULTIPLE MEDICAL COMPLICATIONS INCLUDING COPD EXACERBATION, CANCER, MALNUTRITION/DEHYDRATION, GENERALIZED WEAKNESS, SOB AND MUSCLE WASTING/ WITH LESS THAN 5 SWALLOWS OF P.O. TRIALS WITH THIN LIQUID AND PUREE PRESENTED IN 5 ML AMOUNTS VIA SPOON: PATIENT WENT FROM BASELINE OF 25 BPM TO 35-40 BPM...ALMOST GASPING FOR AIR. CLEAR UPPER AIRWAY SOUNDS PRE AND POST SWALLOW. NO OVERT S/S OF ASPIRATION. INITIAL IMPRESSION: HIGH RISK FOR ASPIRATION DUE TO SEVERE OROPHARYNGEAL DYSPHAGIA RELATIVE TO INABILITY TO SUCCESSFULLY COORDINATE SWALLOWING AND BREATHING RECOMMENDATION: 1. BECAUSE NON/ORAL FEEDING MANAGEMENT IS NOT AN OPTION, THIS PATIENTS P.O. INTAKE MUST CONSIST OF COMFORT FEEDS PART OF THE PENDING HOSPICE CARE 2. A MODIFIED BARIUM SWALLOW STUDY TO DETERMINE THE SAFEST VISCOSITY FOR THIS PATIENTS COMFORT CARE 3. TRAINING FOR CAREGIVERS/FAMILY RELATIVE TO PROTOCOL TO MINIMIZE RISK OF ASPIRATION
[2019-06-14] MEDS: Tamsulosin 0.4mg cap ORAL SCH (20:40)
[2019-06-15] VITALS (7 sets, daily range): BP systolic 99–149; BP diastolic 68–102
--- NOTE | 2019-06-15 05:00 | NUR ---
NURSE NOTES: Pt. complaining of SOB. Assessed, pt. tachypnic 24 bmp, satting well at 96% on 3L NC. Will continue to monitor.
[2019-06-15] MEDS ORDERED: Albuterol/Ipratropium 3ml neb HHN SCH (05:15)
--- NOTE | 2019-06-15 05:30 | NUR ---
NURSE NOTES: Pt. was coached on pursed lip breathing. Pt. satting 95% on NC 3L. Now asleep, no indications of respiratory distress at this time. Will continue to monitor.
--- NOTE | 2019-06-15 06:47 | NUR ---
NURSE NOTES: Pt. tachycardic, 130bpm. Charge nurse aware, will continue to monitor.
--- NOTE | 2019-06-15 07:19 | NUR ---
HAND-OFF: Report given to JOVI Arredondo.
--- NOTE | 2019-06-15 07:39 | NUR ---
NURSE NOTES: PT WITH ELEVATED HR 140-145, IRREGULAR, SOB WITH INCREASED RESPIRATION RATE. PT STATES HE FEELS DIZZY AND NAUSEOUS. PT IS ALERT AND ORIENTED X4. RN SPOKE TO DR GOULD, WITH NEW ORDERS FOR STAT TROPONIN, D-DIMER, CXR, AND ABGS. ORDERS ENTERED. PT EDUCATED ON NEW ORDERS. PT VERBALIZED UNDERSTANDING.
[2019-06-15] MEDS: Pantoprazole Inj IVP SCH ×2 (08:12→21:09)
[2019-06-15] MEDS: Heparin 5000 units/ml inj SUBQ SCH ×2 (08:13→21:21)
[2019-06-15] MEDS: Albuterol/Ipratropium 3ml neb HHN SCH ×4 (08:35→20:25)
--- NOTE | 2019-06-15 09:20 | Diagnostic Imaging Report ---
Indication: Dyspnea Comparison: 06/09/2019 A single view chest radiograph was obtained. Findings: There is suggestion of mild basal atelectasis. Small bilateral pleural effusions are not excluded. Heart size is normal. There is no obvious infiltrate. IMPRESSION: Basal atelectasis. No obvious infiltrate
--- NOTE | 2019-06-15 10:20 | NUR ---
RADIOLOGY DEPT., CHEST X-RAY DONE.-P.DYE
--- NOTE | 2019-06-15 10:21 | GI Progress Note ---
Assessment/Plan Problems: (1) Cirrhosis ICD Codes: K74.60 - Unspecified cirrhosis of liver SNOMED: 31672402 Qualifiers: Qualified Codes: K74.60 - Unspecified cirrhosis of liver (2) Hepatic encephalopathy ICD Codes: K72.90 - Hepatic failure, unspecified without coma SNOMED: 72424210 (3) Constipation ICD Codes: K59.00 - Constipation, unspecified SNOMED: 93683264 (4) Hepatitis C ICD Codes: B19.20 - Unspecified viral hepatitis C without hepatic coma SNOMED: 26772131 (5) Hepatocellular carcinoma ICD Codes: C22.0 - Liver cell carcinoma SNOMED: 398597364 Status: unchanged Status Narrative Discussed with Dr. Ritter. Assessment/Plan 1. Liver cirrhosis. 2. Hepatitis C. 3. Liver cancer, HCC. 4. COPD. 5. Kidney stones. 6. Hypertension. us reviewed>> No CBD dilatation>>> extensive mets poor prognosis repeat labs ? hospice off lactulose given loose stools supportive care The patient was seen and examined at bedside and all new and available data was reviewed in the patients chart. I agree with the above findings, impression and plan. (Patient seen earlier today. Signature stamp does not reflect patient encounter time.). - Biju Ritter MD Subjective Subjective limited Objective Last 24 Hour Vital Signs Date Time Temp Pulse Resp B/P (MAP) Pulse Ox O2 Delivery O2 Flow Rate FiO2 06/15/19 08:33 149 24 96 Nasal Cannula 4.0 36 06/15/19 08:32 147 24 99 Nasal Cannula 4.0 36 149 24 96 06/15/19 08:00 96.8 145 24 142/94 (110) 96 06/15/19 04:00 98.0 125 24 149/102 (118) 96 06/15/19 00:00 97.0 88 22 134/83 (100) 92 06/14/19 21:00 Nasal Cannula 3.0 Nasal Cannula 3.0 06/14/19 20:02 81 22 98 Nasal Cannula 4.0 36 06/14/19 20:00 97.0 96 22 126/74 (91) 100 06/14/19 16:11 98.1 73 18 112/75 (87) 97 06/14/19 12:05 97.4 93 17 123/79 (94) 97 06/14/19 11:30 111 20 99 Nasal Cannula 4.0 36 105 20 96 Intake and Output 06/14/19 06/15/19 19:00 07:00 Intake Total 510.0 ml Output Total 250 ml 100 ml Balance 260.0 ml -100 ml IV Total 110.0 ml Other 400 ml Output Urine Total 250 ml 100 ml Post Void Residual 0 ml Bladder Scan Volume Amount <10 ml Laboratory Tests Test 06/15/19 07:21 06/15/19 08:55 Arterial Blood pH 7.291 (7.350-7.450) Arterial Blood Partial Pressure CO2 32.8 mmHg (35.0-45.0) L Arterial Blood Partial Pressure O2 116.0 mmHg (75.0-100.0) H Arterial Blood HCO3 15.5 mmol/L (22.0-26.0) *L Arterial Blood Oxygen Saturation 98.0 % (95-100) Arterial Blood Base Excess -9.9 (-2-2) *L Donte Test Positive Troponin I 0.002 ng/mL (0.000-0.056) Height (Feet): 6 Height (Inches): 2.00 Weight (Pounds): 161 General Appearance: WD/WN, no apparent distress, alert Cardiovascular: normal rate Respiratory/Chest: normal breath sounds, no respiratory distress Abdominal Exam: normal bowel sounds, non tender, soft Extremities: normal range of motion, non-tender Eleonora Way LAY OUT AND DETAIL DRAFTER Jun 15, 2019 10:21
--- NOTE | 2019-06-15 10:23 | GI Progress Note ---
Assessment/Plan Problems: (1) Cirrhosis ICD Codes: K74.60 - Unspecified cirrhosis of liver SNOMED: 01811127 Qualifiers: Qualified Codes: K74.60 - Unspecified cirrhosis of liver (2) Hepatic encephalopathy ICD Codes: K72.90 - Hepatic failure, unspecified without coma SNOMED: 63505123 (3) Constipation ICD Codes: K59.00 - Constipation, unspecified SNOMED: 72067396 (4) Hepatitis C ICD Codes: B19.20 - Unspecified viral hepatitis C without hepatic coma SNOMED: 73798701 (5) Hepatocellular carcinoma ICD Codes: C22.0 - Liver cell carcinoma SNOMED: 702601391 Status: unchanged Status Narrative Discussed with Dr. Ritter. Assessment/Plan 1. Liver cirrhosis. 2. Hepatitis C. 3. Liver cancer, HCC. 4. COPD. 5. Kidney stones. 6. Hypertension. us reviewed>> No CBD dilatation>>> extensive mets poor prognosis paracentesis today - send labs r/o SBP - replace albumin - on zosyn repeat labs ? hospice off lactulose given loose stools supportive care The patient was seen and examined at bedside and all new and available data was reviewed in the patients chart. I agree with the above findings, impression and plan. (Patient seen earlier today. Signature stamp does not reflect patient encounter time.). - Biju Ritter MD Subjective Subjective limited Objective Last 24 Hour Vital Signs Date Time Temp Pulse Resp B/P (MAP) Pulse Ox O2 Delivery O2 Flow Rate FiO2 06/15/19 08:33 149 24 96 Nasal Cannula 4.0 36 06/15/19 08:32 147 24 99 Nasal Cannula 4.0 36 149 24 96 06/15/19 08:00 96.8 145 24 142/94 (110) 96 06/15/19 04:00 98.0 125 24 149/102 (118) 96 06/15/19 00:00 97.0 88 22 134/83 (100) 92 06/14/19 21:00 Nasal Cannula 3.0 Nasal Cannula 3.0 06/14/19 20:02 81 22 98 Nasal Cannula 4.0 36 06/14/19 20:00 97.0 96 22 126/74 (91) 100 06/14/19 16:11 98.1 73 18 112/75 (87) 97 06/14/19 12:05 97.4 93 17 123/79 (94) 97 06/14/19 11:30 111 20 99 Nasal Cannula 4.0 36 105 20 96 Intake and Output 06/14/19 06/15/19 19:00 07:00 Intake Total 510.0 ml Output Total 250 ml 100 ml Balance 260.0 ml -100 ml IV Total 110.0 ml Other 400 ml Output Urine Total 250 ml 100 ml Post Void Residual 0 ml Bladder Scan Volume Amount <10 ml Laboratory Tests Test 06/15/19 07:21 06/15/19 08:55 Arterial Blood pH 7.291 (7.350-7.450) Arterial Blood Partial Pressure CO2 32.8 mmHg (35.0-45.0) L Arterial Blood Partial Pressure O2 116.0 mmHg (75.0-100.0) H Arterial Blood HCO3 15.5 mmol/L (22.0-26.0) *L Arterial Blood Oxygen Saturation 98.0 % (95-100) Arterial Blood Base Excess -9.9 (-2-2) *L Donte Test Positive Troponin I 0.002 ng/mL (0.000-0.056) Height (Feet): 6 Height (Inches): 2.00 Weight (Pounds): 161 General Appearance: WD/WN, no apparent distress, alert Cardiovascular: normal rate Respiratory/Chest: normal breath sounds, no respiratory distress Abdominal Exam: normal bowel sounds, non tender, soft, ascites Extremities: normal range of motion, non-tender Eleonora Way DIRECTOR OF INSTRUCTIONAL TECHNOLOGY Jun 15, 2019 10:23
--- NOTE | 2019-06-15 11:00 | NUR ---
NURSE NOTES: DR LLOYD WAS MADE AWARE OF ABG RESULTS. PER MD, NO NEW ORDERS AND CONTINUE TO MONITOR.
[2019-06-15 11:13] LABS: INR 1.5 (0.9-1.1)
--- NOTE | 2019-06-15 12:24 | Consultation ---
Consult Note Assessment/Plan DICT # [id number] Talon Lopez MD Jun 15, 2019 12:24
--- NOTE | 2019-06-15 13:42 | Diagnostic Imaging Report ---
Indications: Ascites Procedure: Informed consent obtained. Ultrasound used to localize optimal puncture site. Sterile prepping and draping over the optimum site. Local anesthesia with 1% lidocaine. Under real-time ultrasound guidance, puncture of the peritoneal space performed using paracentesis needle. Digital image was saved and archived. Stylet removed. Catheter placed to vacuum bottle suction. Fluid was aspirated. Patient tolerated procedure well, without immediate complication. Specimen sent for diagnostic paracentesis. Findings: Followup sonography demonstrates complete resolution of peritoneal fluid Impression: Successful ultrasound-guided paracentesis, yielding 1.8 liters of fluid
--- NOTE | 2019-06-15 14:00 | NUR ---
NURSE NOTES: PT ARRIVED ON UNIT AFTER PARACENTESIS IN STABLE CONDITION. PULSE IS 100-110. PT WITH SOB BUT OXYGEN SATURATION 96-97% ON NC 3L. VSS. IN NO APPARENT DISTRESS. CALL LIGHT WITHIN REACH. BED IN LOWEST POSITION WITH BEDSIDE RAILS X3 RAISED. WILL CONTINUE TO MONITOR.
--- NOTE | 2019-06-15 16:15 | Consultation ---
DATE OF CONSULTATION: 06/15/2019 PULMONARY CONSULTATION CONSULTING PHYSICIAN: Talon Lopez M.D. REFERRING PHYSICIAN: Berto Beltran M.D. REASON FOR CONSULTATION: Respiratory decompensation. HISTORY OF PRESENT ILLNESS: The patient is a 73-year-old male with a history of hepatocellular carcinoma, hepatitis C, hypertension, COPD, who was initially admitted with lethargy and shortness of breath. He is being treated for exacerbation of his COPD as well as decompensated liver failure. Over the course of the past few days, he has had progressive leukocytosis. He also has worsening liver function. He is being treated empirically for an exacerbation of his obstructive lung disease. This morning, the patient was tachypneic and short of breath. I was called by the nurse. I ordered ABG, D-dimer, and troponin. His D-dimer was elevated at 6.28. His troponin was negative. His ABG was 7.29/32/116/15/98. The patient notes marked dyspnea, which he attributes to some extent to the abdominal distention. Chest x-ray significant only for some atelectasis at the bases. He is currently getting xlfgd-nrn-qmmdx and p.r.n. DuoNebs as well as prednisone 40 mg a day. He was on empiric Zosyn, which has been discontinued. PAST MEDICAL HISTORY: 1. Hepatocellular carcinoma. 2. Hepatitis C. 3. COPD. 4. Hypertension. ALLERGIES: No known drug allergies. MEDICATIONS: Prior to admission medications reviewed. Current medications reviewed. SOCIAL HISTORY: Former smoker. No drug or alcohol use. , supportive family. FAMILY HISTORY: Noncontributory. REVIEW OF SYSTEMS: Negative other than history of present illness. PHYSICAL EXAMINATION: VITAL SIGNS: Temperature 96.8, pulse 119, blood pressure 142/94, respiratory rate 24, saturating 98% on 4 L. GENERAL: He is a frail elderly male appearing older than his stated age, in mild respiratory distress. HEENT: Normocephalic, atraumatic. Oropharynx is clear with moist mucous membranes. NECK: Supple without lymphadenopathy or JVD. CHEST: Scattered coarse anterior low lung volumes. HEART: Tachycardic, but regular. ABDOMEN: Soft, nontender, nondistended. EXTREMITIES: No cyanosis, clubbing or edema. ANCILLARY DATA: Chest x-ray, bibasilar atelectasis. White count 17.4, hemoglobin 13.2, and platelet count 186. ABG 7.29/32/160/15/98. Sodium 141, potassium 4.9, chloride 108, bicarbonate 20, BUN 39, creatinine 1.1, glucose 142, calcium 8.3, phosphorus 2.4, magnesium 1.3, total bilirubin 4.8, direct bilirubin 4.4. , AST 526, ALT 240, alkaline phosphatase 82. Troponin negative. Albumin 1.3. INR 1.5. D-dimer 6.28. Urinalysis, 2+ protein, 1+ blood, and 2+ bilirubin, 8+ urobilinogen, 1+ LE. Toxicology screen negative. A 06/09/2019 abdominal ultrasound with multiple liver masses. ASSESSMENT: 1. Hypoxemic respiratory failure, likely secondary to diaphragmatic elevation from ascites and atelectasis, mostly rule out thromboembolism as well however, given sinus tachycardia and elevated D-dimer. 2. Decompensated liver failure. 3. Ascites. 4. Hepatitis C. 5. Hepatocellular carcinoma with multiple liver masses. 6. Severe protein-calorie malnutrition. 7. Metabolic acidosis. 8. Leukocytosis. 9. Anemia. 10. Hypertension. 11. COPD without evidence of exacerbation. TREATMENT PLAN: 1. Optimize pulmonary hygiene/mobilize as tolerated. 2. Titrate on FiO2 to keep saturations greater than 90%. 3. Uhxei-jyk-gpqcs and p.r.n. DuoNebs. 4. Continue prednisone 40 mg a day for now. 5. Agree with plan for paracentesis. 6. We will check a duplex of the lower extremities and if negative, we will consider a VQ scan. 7. Followup GI recommendations. 8. Attempt diuresis if able. 9. DVT prophylaxis, heparin subcutaneous. 10. Aspiration precautions. 11. The patient is DNAR. 12. The is considering hospice, which is completely appropriate given the overall scenario. Dr. Beltran, thank you for allowing me to assist in the care of your patient. If I may be of any assistance in the future, please do not hesitate to ask. Talon Lopez M.D. : JOELLE/GARRETT JOB#: [id number] CC:
--- NOTE | 2019-06-15 16:58 | NUR ---
CASE MANAGEMENT:REVIEW SI;CIRRHOSIS. COPD W/EXACERBATION. HEPATOCELLULAR CARCINOMA. HEPATIC ENCEPHALOPATHY 97.3 131 24 103/68 VC 63% 4 L NC FIO2 36% IS;ALBUTEROL HHN Q4 HRT PRIDNISONE PO QD PROTONIX IV Q12 HRS REGLAN IV Q6 HRS PRN MED SURG STATUS DCP;HOME WITH HOSPICE
--- NOTE | 2019-06-15 17:28 | NUR ---
CHARGE NURSE NOTE: Spoke with regarding discharge, he said pt is in distress, possibly he will discharge him tomorrow.
--- NOTE | 2019-06-15 17:35 | NUR ---
BARIATRIC COORDINATOR NOTES SPOKE WITH LUPE FROM [facility] MADE AWARE OF PT TO BE DISCHARGED IN AM. WILL CALL IN AM FOR ETA OF AMBULANCE.
--- NOTE | 2019-06-15 18:15 | NUR ---
NURSE NOTES: RN SPOKE TO BUDDY PERALES. PER ANGELLA, SHE SPOKE TO DAUGHTER AND [facility] REGARDING POSSIBLE DISCHARGE TOMORROW. PT IN NO APPARENT DISTRESS AT THIS TIME. CALM AND RESTING IN BED. WILL CONTINUE TO MONITOR.
--- NOTE | 2019-06-15 19:00 | General Progress Note ---
Assessment/Plan Problem List: (1) Dehydration ICD Codes: E86.0 - Dehydration SNOMED: 60689353 (2) Hepatic encephalopathy ICD Codes: K72.90 - Hepatic failure, unspecified without coma SNOMED: 84739857 (3) Hepatocellular carcinoma ICD Codes: C22.0 - Liver cell carcinoma SNOMED: 803453176 (4) Cirrhosis ICD Codes: K74.60 - Unspecified cirrhosis of liver SNOMED: 79055630 Qualifiers: Qualified Codes: K74.60 - Unspecified cirrhosis of liver (5) COPD with exacerbation ICD Codes: J44.1 - Chronic obstructive pulmonary disease with (acute) exacerbation SNOMED: 419872904 Status: unchanged Assessment/Plan: dc iv, hhn, taper steroids considering hospice agrees paracentesis 1.8 liter for comfort Subjective HEENT: Reports: no symptoms Cardiovascular: Reports: no symptoms Respiratory: Reports: cough, shortness of breath Gastrointestinal/Abdominal: Reports: abdomen distended Genitourinary: Reports: other - swollen penis Neurologic/Psychiatric: Reports: weakness Endocrine: Reports: no symptoms Allergies: Coded Allergies: No Known Allergies (Verified , 07/16/18) Objective Last 24 Hour Vital Signs Date Time Temp Pulse Resp B/P (MAP) Pulse Ox O2 Delivery O2 Flow Rate FiO2 06/15/19 16:00 97.3 110 21 103/68 (80) 97 06/15/19 15:47 110 24 99 Nasal Cannula 2.0 28 108 24 97 06/15/19 12:00 97.9 131 20 121/79 (93) 99 06/15/19 11:14 119 24 99 Nasal Cannula 4.0 36 120 24 98 06/15/19 09:00 Nasal Cannula 3.0 Nasal Cannula 3.0 06/15/19 08:33 149 24 96 Nasal Cannula 4.0 36 06/15/19 08:32 147 24 99 Nasal Cannula 4.0 36 149 24 96 06/15/19 08:00 96.8 145 24 142/94 (110) 96 06/15/19 04:00 98.0 125 24 149/102 (118) 96 06/15/19 00:00 97.0 88 22 134/83 (100) 92 06/14/19 21:00 Nasal Cannula 3.0 Nasal Cannula 3.0 06/14/19 20:02 81 22 98 Nasal Cannula 4.0 36 06/14/19 20:00 97.0 96 22 126/74 (91) 100 Intake and Output 06/14/19 06/15/19 19:00 07:00 Intake Total 510.0 ml Output Total 250 ml 100 ml Balance 260.0 ml -100 ml IV Total 110.0 ml Other 400 ml Output Urine Total 250 ml 100 ml Post Void Residual 0 ml Bladder Scan Volume Amount <10 ml Laboratory Tests 06/15/19 07:21: Arterial Blood pH 7.291L, Arterial Blood Partial Pressure CO2 32.8L, Arterial Blood Partial Pressure O2 116.0H, Arterial Blood HCO3 15.5*L, Arterial Blood Oxygen Saturation 98.0, Arterial Blood Base Excess -9.9*L, Donte Test Positive 06/15/19 08:55: Troponin I 0.002 06/15/19 10:20: Prothrombin Time 15.7H, Prothromb Time International Ratio 1.5H, D-Dimer 6.28H Height (Feet): 6 Height (Inches): 2.00 Weight (Pounds): 161 General Appearance: moderate distress EENT: normal ENT inspection Neck: normal alignment Cardiovascular: regular rhythm Respiratory/Chest: accessory muscle use, rhonchi - bilaterally Abdomen: non tender, distended Edema: moderate edema Neurologic: programming specialist II-XII grossly normal Berto Beltran MD Jun 15, 2019 19:00
--- NOTE | 2019-06-15 19:35 | NUR ---
HAND-OFF: Report given to Kalen MORELOS RN.
--- NOTE | 2019-06-15 19:40 | NUR ---
NURSE NOTES: Patient in bed and asleep at this time. On nasal cannula 3L. IV access in the right EJ noted; intact and patent. Bed locked and in lowest position. HOB elevated. Will continue to monitor the patient.
[2019-06-15] MEDS: Tamsulosin 0.4mg cap ORAL SCH (21:00)
--- NOTE | 2019-06-15 21:00 | NUR ---
NURSE NOTES: Patient had paracentesis 06/15 AM shift. Noted the specimen to be shown as uncollected on eMAR during PM shift. Contacted lab and followed up with
[2019-06-16] MEDS: Albuterol/Ipratropium 3ml neb HHN SCH ×6 (00:04→19:44)
[2019-06-16 03:50] VITALS: BP 119/71
--- NOTE | 2019-06-16 07:03 | NUR ---
HAND-OFF: Report given to JOVI Arredondo.
[2019-06-16 07:32] LABS: ANION GAP 14 mmol/L (5-15); BLOOD UREA NITROGEN 48 mg/dL (7-18); CALCIUM 8.8 MG/DL (8.5-10.1); CARBON DIOXIDE 19 MMOL/L (21-32); CHLORIDE 108 MMOL/L (98-107); CREATININE 1.3 MG/DL (0.55-1.30); POTASSIUM 5.2 MMOL/L (3.5-5.1); SODIUM 140 MMOL/L (136-145)
[2019-06-16 07:45] LABS: HEMATOCRIT 39.7 % (42.0-52.0); HEMOGLOBIN 12.7 G/DL (14.2-18.0); MEAN CORPUSCULAR VOLUME 91 FL (80-99); PLATELET COUNT 186 K/UL (150-450); RED BLOOD COUNT 4.35 M/UL (4.70-6.10); RED CELL DISTRIBUTION WIDTH 19.2 % (11.6-14.8); WHITE BLOOD COUNT 16.4 K/UL (4.8-10.8)
[2019-06-16 08:00] VITALS: BP 107/80
[2019-06-16] MEDS: Pantoprazole Inj IVP SCH (08:20)
[2019-06-16] MEDS: Heparin 5000 units/ml inj SUBQ SCH (08:41)
--- NOTE | 2019-06-16 09:16 | General Progress Note ---
Assessment/Plan Status: unchanged Assessment/Plan: PAST MEDICAL HISTORY: 1. Liver cirrhosis. 2. Hepatitis C. 3. Liver cancer, HCC. 4. COPD. 5. Kidney stones. 6. Hypertension. us reviewed>> No CBD dilatation>>> extensive mets poor prognosis repeat labs ? hospice off lactulose given loose stools Subjective ROS Limited/Unobtainable: Yes Allergies: Coded Allergies: No Known Allergies (Verified , 07/16/18) Objective Last 24 Hour Vital Signs Date Time Temp Pulse Resp B/P (MAP) Pulse Ox O2 Delivery O2 Flow Rate FiO2 06/16/19 08:00 98.1 129 32 107/80 (89) 95 06/16/19 07:08 124 18 100 Nasal Cannula 3.0 32 118 20 98 06/16/19 06:58 98 Nasal Cannula 3.0 32 06/16/19 03:50 97.0 117 22 119/71 (87) 99 06/16/19 03:17 114 20 98 Nasal Cannula 2.0 28 112 20 94 06/16/19 00:04 107 22 99 Nasal Cannula 2.0 28 104 20 96 06/15/19 23:56 97.0 102 28 99/70 (80) 98 06/15/19 20:39 Nasal Cannula 3.0 Nasal Cannula 3.0 06/15/19 20:27 112 22 98 Nasal Cannula 2.0 28 06/15/19 20:25 109 24 100 Nasal Cannula 2.0 28 112 24 98 06/15/19 20:00 98.0 149 24 142/94 (110) 96 06/15/19 16:00 97.3 110 21 103/68 (80) 97 06/15/19 15:47 110 24 99 Nasal Cannula 2.0 28 108 24 97 06/15/19 12:00 97.9 131 20 121/79 (93) 99 06/15/19 11:14 119 24 99 Nasal Cannula 4.0 36 120 24 98 Intake and Output 06/15/19 06/16/19 18:59 06:59 Intake Total 170 ml Output Total 200 ml Balance 170 ml -200 ml Intake Oral 120 ml IV Total 50 ml Output Urine Total 200 ml # Bowel Movements 1 1 Laboratory Tests 06/15/19 10:20: Prothrombin Time 15.7H, Prothromb Time International Ratio 1.5H, D-Dimer 6.28H 06/16/19 06:35: White Blood Count 16.4H, Red Blood Count 4.35L, Hemoglobin 12.7L, Hematocrit 39.7L, Mean Corpuscular Volume 91, Mean Corpuscular Hemoglobin 29.2, Mean Corpuscular Hemoglobin Concent 31.9L, Red Cell Distribution Width 19.2H, Platelet Count 186, Mean Platelet Volume 9.1, Neutrophils (%) (Auto) , Lymphocytes (%) (Auto) , Monocytes (%) (Auto) , Eosinophils (%) (Auto) , Basophils (%) (Auto) , Neutrophils % (Manual) [Pending], Lymphocytes % (Manual) [Pending], Platelet Estimate [Pending], Platelet Morphology [Pending], Sodium Level 140, Potassium Level 5.2H, Chloride Level 108H, Carbon Dioxide Level 19L, Anion Gap 14, Blood Urea Nitrogen 48H, Creatinine 1.3, Estimat Glomerular Filtration Rate > 60, Glucose Level 102, Calcium Level 8.8 Height (Feet): 6 Height (Inches): 2.00 Weight (Pounds): 161 General Appearance: alert EENT: scleral icterus Neck: normal alignment, supple Cardiovascular: normal rate Respiratory/Chest: decreased breath sounds Abdomen: normal bowel sounds, non tender, soft Extremities: non-tender Biju Ritter MD Jun 16, 2019 09:16
--- NOTE | 2019-06-16 10:10 | NUR ---
PT NOTE Attempted to see patient for PT treatment. Patient declining to participate due to weakness. Arnulfo RN notified, will follow.
--- NOTE | 2019-06-16 11:55 | NUR ---
CHARGE NURSE NOTE: Spoke with , notified him that pt will be discharged to [facility], and family has to arrange an ambulance. He said he is coming after 4, he will take care of discharge.
[2019-06-16 12:00] VITALS: BP 141/91
--- NOTE | 2019-06-16 14:41 | NUR ---
NURSE NOTES: RN SPOKE TO DR GOULD. PER DR GOULD, PT CAN BE DISCHARGED TODAY IF HOSPICE HAS SET UP HOSPITAL BED, OXYGEN FOR HOME, AND TRANSPORTATION TO [place]. RN TO PERFORM BLADDER SCAN AND CALL BACK WITH RESULTS. PER DR GOULD, FAX PT'S CURRENT MEDICATION LIST AND [facility]'S CONTACT INFO AND HAVE HOSPICE CALL HIM FOR ORDERS. RN FAXED MED LIST AND [facility] CONTACT INFO. RN SPOKE TO LUPE AT [facility] , AND MADE AWARE PT IS CLEARED FOR DISCHARGE TODAY. PER LUPE, HOSPITAL BED AND OXYGEN WAS DELIVERED YESTERDAY AND LUPE ARRANGED TRANSPORTATION TRA[facility] [employer] [facility] ETA [phone] HRS TODAY. BLADDER SCAN WITH 600ML RESIDUAL. RN LEFT MESSAGE WITH DR GOULD'S OFFICE REGARDING BLADDER SCAN RESULTS.
--- NOTE | 2019-06-16 14:49 | NUR ---
DISCHARGE PLAN NOTE REPORT RECEIVED FROM JOVI JESSICA THAT PATIENT HAS BEEN CLEARED FOR DC BY DR GOULD. RN ALSO REPORTS DC COMMUNICATED WITH [facility] AND PER LUPE, AMBULANCE TRANSPORTATION SCHEDULED BY HOSPICE AGENCY WITH ETA FOR FLOOR ASSOCIATE FROM [facility] AT [phone] PM.
--- NOTE | 2019-06-16 14:56 | NUR ---
NURSE NOTES: RN SPOKE TO ZAHEER (CM), ALONZO ()David AND DTG AND MADE AWARE OF DISCHARGE TODAY.
--- NOTE | 2019-06-16 15:25 | Pulmonology Progress Note ---
Assessment/Plan Problems: (1) Hepatitis C (2) Hepatocellular carcinoma (3) Hepatic encephalopathy (4) Liver lesion (5) Liver mass (6) COPD (chronic obstructive pulmonary disease) (7) History of drug use (8) COPD with exacerbation (9) Respiratory failure with hypoxia Assessment/Plan ASSESSMENT: 1. Hypoxemic respiratory failure, likely secondary to diaphragmatic elevation from ascites and atelectasis, mostly rule out thromboembolism as well however, given sinus tachycardia and elevated D-dimer. 2. Decompensated liver failure. 3. Ascites. 4. Hepatitis C. 5. Hepatocellular carcinoma with multiple liver masses. 6. Severe protein-calorie malnutrition. 7. Metabolic acidosis. 8. Leukocytosis. 9. Anemia. 10. Hypertension. 11. COPD without evidence of exacerbation. TREATMENT PLAN: 1. Optimize pulmonary hygiene/mobilize as tolerated. 2. Titrate O2 3. HHN's 4. Pred 40 5. Duplex neg, hold off on VQ given plan for hopice 6. Followup GI recommendations. 7. Monitro volumes and renal function, diuresis as able 8. DVT prophylaxis, heparin subcutaneous. 9. Aspiration precautions. 10. The patient is DNAR. 11. Dispo planning today on hospice Subjective Allergies: Coded Allergies: No Known Allergies (Verified , 07/16/18) Subjective AFVSS on 2L S/P para Less SOB no cough no FC Dispo planning today with hospice Objective Last 24 Hour Vital Signs Date Time Temp Pulse Resp B/P (MAP) Pulse Ox O2 Delivery O2 Flow Rate FiO2 06/16/19 14:53 124 22 100 Nasal Cannula 2.0 28 118 22 97 06/16/19 12:00 98.0 137 31 141/91 (108) 98 06/16/19 10:42 132 22 100 Nasal Cannula 3.0 32 128 24 96 06/16/19 09:00 Nasal Cannula 3.0 Nasal Cannula 3.0 06/16/19 08:00 98.1 129 32 107/80 (89) 95 06/16/19 07:08 124 18 100 Nasal Cannula 3.0 32 118 20 98 06/16/19 06:58 98 Nasal Cannula 3.0 32 06/16/19 03:50 97.0 117 22 119/71 (87) 99 06/16/19 03:17 114 20 98 Nasal Cannula 2.0 28 112 20 94 06/16/19 00:04 107 22 99 Nasal Cannula 2.0 28 104 20 96 06/15/19 23:56 97.0 102 28 99/70 (80) 98 06/15/19 20:39 Nasal Cannula 3.0 Nasal Cannula 3.0 06/15/19 20:27 112 22 98 Nasal Cannula 2.0 28 06/15/19 20:25 109 24 100 Nasal Cannula 2.0 28 112 24 98 06/15/19 20:00 98.0 149 24 142/94 (110) 96 06/15/19 16:00 97.3 110 21 103/68 (80) 97 06/15/19 15:47 110 24 99 Nasal Cannula 2.0 28 108 24 97 Intake and Output 06/15/19 06/16/19 19:00 07:00 Intake Total 170 ml Output Total 200 ml Balance 170 ml -200 ml Intake Oral 120 ml IV Total 50 ml Output Urine Total 200 ml # Bowel Movements 1 1 General Appearance: cachetic HEENT: normocephalic, atraumatic Respiratory/Chest: chest wall non-tender, lungs clear, normal breath sounds, no respiratory distress Cardiovascular: normal peripheral pulses, normal rate, regular rhythm Abdomen: soft, non tender, distended Extremities: no cyanosis, no clubbing, no edema Laboratory Tests 06/16/19 06:35: White Blood Count 16.4H, Red Blood Count 4.35L, Hemoglobin 12.7L, Hematocrit 39.7L, Mean Corpuscular Volume 91, Mean Corpuscular Hemoglobin 29.2, Mean Corpuscular Hemoglobin Concent 31.9L, Red Cell Distribution Width 19.2H, Platelet Count 186, Mean Platelet Volume 9.1, Neutrophils (%) (Auto) , Lymphocytes (%) (Auto) , Monocytes (%) (Auto) , Eosinophils (%) (Auto) , Basophils (%) (Auto) , Differential Total Cells Counted 100, Neutrophils % ( Manual) 96H, Lymphocytes % (Manual) 2L, Monocytes % (Manual) 2, Eosinophils % ( Manual) 0, Basophils % (Manual) 0, Band Neutrophils 0, Platelet Estimate Adequate, Platelet Morphology Normal, Anisocytosis 1+, Sodium Level 140, Potassium Level 5.2H, Chloride Level 108H, Carbon Dioxide Level 19L, Anion Gap 14, Blood Urea Nitrogen 48H, Creatinine 1.3, Estimat Glomerular Filtration Rate > 60, Glucose Level 102, Calcium Level 8.8 Current Medications Medications (Trade) Dose Ordered Sig/Bj Route PRN Reason Start Time Stop Time Status Last Admin Dose Admin Albuterol/ Ipratropium (Albuterol/ Ipratropium) 3 ml Q4HRT HHN 06/15/19 07:00 06/20/19 06:59 06/16/19 14:43 Dextrose (Dextrose 50%) 25 ml Q30M PRN IV Hypoglycemia 06/10/19 13:45 07/09/19 11:44 Dextrose (Dextrose 50%) 50 ml Q30M PRN IV Hypoglycemia 06/10/19 13:45 07/09/19 11:44 Furosemide (Lasix) 40 mg DAILY IV 06/16/19 09:00 07/16/19 08:59 06/16/19 08:20 Heparin Sodium (Porcine) (Heparin 5000 units/ml) 5,000 units EVERY 12 HOURS SUBQ 06/12/19 21:00 07/12/19 20:59 06/16/19 08:41 Metoclopramide HCl (Reglan) 5 mg Q6H PRN IVP Nausea & Vomiting 06/11/19 10:00 07/11/19 09:59 Pantoprazole (Protonix) 40 mg EVERY 12 HOURS IVP 06/11/19 21:00 07/11/19 20:59 06/16/19 08:20 Prednisone (predniSONE) 40 mg DAILY ORAL 06/14/19 09:00 07/14/19 08:59 06/16/19 08:20 Tamsulosin HCl (Flomax) 0.4 mg BEDTIME ORAL 06/10/19 21:00 07/09/19 20:59 06/13/19 21:14 Talon Lopez MD Jun 16, 2019 15:25
[2019-06-16 16:00] VITALS: BP 123/73
--- NOTE | 2019-06-16 18:00 | NUR ---
NURSE NOTES: CHO CATH 16FR INSERTED ORDERED. RN SPOKE TO LUPE AT [facility] AND MADE AWARE. RN SPOKE TO DAUGHTER AND MADE AWARE OF CATHETER. DRAINING DARK KANE URINE BY GRAVITY.
[2019-06-16] MEDS ORDERED: Tubing IV Secondary IV ONE (19:54)
[2019-06-16] MEDS ORDERED: NS 275ml ONE (19:54)
[2019-06-16] MEDS ORDERED: D5NS 1000ml IV ONE (19:54)
--- NOTE | 2019-06-16 19:54 | NUR ---
NURSE NOTES: AMBULANCE AT BEDSIDE TO TRANSPORT PT HOME TO [place]. RN LEFT MESSAGE FOR DAUGHTER TO MAKE AWARE AMBULANCE IS AT BEDSIDE. BELONGINGS CHECKED AT BEDSIDE. ALL ACCOUNTED. CELLPHONE AND CELLPHONE KNITTING SUPERVISOR PLACED IN PT BELONGINGS BAG AND GIVEN TO AMBULANCE PERSONNEL. IV ACCESS DISCONTINUED AND PRESSURE DRESSING APPLIED. PT WAS DISCHARGED IN STABLE CONDITION.
--- NOTE | 2019-06-17 04:30 | Discharge Summary ---
DATE OF ADMISSION: 06/09/2019 DATE OF DISCHARGE: 06/16/2019 PERTINENT HISTORY: The patient is a 73-year-old, male with a history of chronic obstructive pulmonary disease, hepatocellular carcinoma, hepatitis C. he presents with weakness and increasing liver nodules and metastatic disease and shortness of breath. PERTINENT PHYSICAL FINDINGS: See my dictation. HEENT: Oral mucosa is dry. LUNGS: Clear with distant breath sounds. He is mildly tachypneic. HEART: Regular rhythm. ABDOMEN: Soft with some distention. Possible ascites. EXTREMITIES: A 1 to 2+ edema. NEUROLOGIC: He is alert, with slurred speech. No focal findings. COURSE IN THE HOSPITAL: The patient had a bilirubin of 6.3 and elevated liver enzymes and low albumin. Chest x-ray showed no acute disease. He was given pulmonary care with steroids and nebulizer treatments and empiric antibiotics for exacerbation of chronic obstructive pulmonary disease. He was dehydrated and supported with intravenous fluids. He had metastatic cancer and this was discussed with him and his . His code status is DNR. He remains bedridden and very weak. The patient did have urinary retention secondary to BPH and a Rizzo catheter was placed. After detailed discussion with the family, arrangements were made to go to a hospice in the [facility] and I spoke with the family and the hospice people, the measures made to keep comfortable. He was discharged home in improved, but frail condition. FINAL DIAGNOSES: 1. Metastatic hepatocellular carcinoma with increasing liver metastasis and likely malignant ascites. 2. COPD with acute exacerbation. 3. Dehydration. 4. [id number] protein-calorie malnutrition. 5. Phimosis of the penis secondary to edema. 6. Acute urinary retention. 7. BPH. DISCHARGE DISPOSITION: Home with home hospice. DISCHARGE MEDICATIONS: 1. Protonix 40 mg daily. 2. Prednisone 40 mg daily and possible taper. 3. Hand-held nebulizer with DuoNeb q.4 hours and p.r.n. 4. Laurier 10 to 325 q.4 hours p.r.n. 5. Morphine p.r.n. and per hospice. FOLLOWUP: He will be evaluated in followup with the hospice staff in the [facility], who I spoke to. Berto Beltran M.D. DR: SASCHA JOB#: [id number] CC:
== END 2019-06-16 19:55 | disposition hospice, home (50) | DRG 190 ==
LOC: EDBD 02:34 → EMR 02:47 → 2E 03:20 → EDBEDREQ 05:00 → 4E 06-10 13:18
PROC: 0W9G3ZZ Drainage of Peritoneal Cavity, Percutaneous Approach (ICD-10-PCS; principal; 2019-06-15)
DX: J44.1 Chronic obstructive pulmonary disease with (acute) exacerbation (principal); E43 Unspecified severe protein-calorie malnutrition; J96.91 Respiratory failure, unspecified with hypoxia; C22.0 Liver cell carcinoma; C78.7 Secondary malignant neoplasm of liver and intrahepatic bile duct; R18.0 Malignant ascites; E86.0 Dehydration; K72.90 Hepatic failure, unspecified without coma; B19.20 Unspecified viral hepatitis C without hepatic coma; N47.1 Phimosis; N40.1 Benign prostatic hyperplasia with lower urinary tract symptoms; R33.8 Other retention of urine; I10 Essential (primary) hypertension; D64.9 Anemia, unspecified; Z66 Do not resuscitate; K74.60 Unspecified cirrhosis of liver; Z87.891 Personal history of nicotine dependence; R62.7 Adult failure to thrive
CPT/HCPCS: 36415; 36600; 71045; 76700; 76942; 80048; 80053; 80061; 80307; 81003; 82105; 82140; 82248; 82803; 82962; 82977; 83036; 83690; 83735; 83880; 84100; 84443; 84484; 84550; 85007; 85025; 85379; 85610; 86140; 86710; 87040; 87045; 87324; 93005; 93970; 94640; 94664; 96365; 96368; 96375; 99291; J1815; J3430; J7620